=== PATIENT | male | born 1980 | race Caucasian/White ===

== ENCOUNTER 2024-10-19 09:29 | Inpatient (IN) | payer MEDICARE ==
[2024-10-19] MEDS ORDERED: DEXTROSE 50% SYRINGE 50 ML IVP PRN ×2 (09:31)
[2024-10-19] MEDS ORDERED: Potassium Replacement Protocol 1 EACH MISC MISCELLANE PRN (09:31)
[2024-10-19] MEDS ORDERED: Magnesium Replacement Protocol 1 EACH MISC MISCELLANE PRN (09:31)
--- NOTE | 2024-10-19 09:36 | ED ---
General Adult HPI - General Stated complaint: AMS Time Seen by Provider: 10/19/24 09:29 Source: patient, RN notes reviewed, old records reviewed - History of Present Illness Initial comments: This is a 44-year-old male who has a past medical history significant for diabetes and a BKA on the right. Patient stated to EMS that he was normal at 11:00 last night but did complain about just in general not feeling well this morning she woke up and found him naked on the floor and unresponsive. Patient's blood sugar was over 500. And this is all the history have at the time. Review of Systems ROS Statement: Those systems with pertinent positive or pertinent negative responses have been documented in the HPI. ROS Other: All systems not noted in ROS Statement are negative. General Exam - General Exam Comments Initial Comments: GENERAL: Patient is well-developed and well-nourished. Patient is unresponsive ENT: Neck is soft and supple. No significant lymphadenopathy is noted. Oropharynx is clear. Moist mucous membranes. Neck has full range of motion without eliciting any pain. EYES: The sclera were anicteric and conjunctiva were pink and moist. Extraocular movements were intact and pupils were equal round and reactive to light. Eyelids were unremarkable. PULMONARY: Unlabored respirations. Good breath sounds bilaterally. No audible rales rhonchi or wheezing was noted. CARDIOVASCULAR: There is a regular rate and rhythm without any murmurs gallops or rubs. ABDOMEN: Soft and nontender with normal bowel sounds. SKIN: Skin is clear with no lesions or rashes and otherwise unremarkable. NEUROLOGIC: Patient unresponsive but does respond to verbal stimuli by looking at you but does not answer any questions. MUSCULOSKELETAL: Patient has a BKA on the right LYMPHATICS: No significant lymphadenopathy is noted PSYCHIATRIC: Unable to ascertain at this time Course Vital Signs 10/19/24 10/19/24 10/19/24 09:36 09:53 10:19 Temperature 100.0 F H 100.2 F H Pulse Rate 115 H 116 H 117 H Respiratory 24 24 24 Rate Blood Pressure 110/79 129/92 105/83 O2 Sat by Pulse 97 97 96 Oximetry Medical Decision Making - Medical Decision Making EKG is interpreted by myself. EKG shows sinus tachycardia 118 bpm MO was under 35 QRS is 88 QT interval 344 QTc is 414. Patient's EKG shows no ST segment elevation. Was pt. sent in by a medical professional or institution ([facility], [employer], urgent care, hospital, or snf...) When possible be specific @ -No Did you speak to anyone other than the patient for history (EMS, parent, family, police, friend...)? What history was obtained from this source @ -No Did you review nursing and triage notes (agree or disagree)? Why? @ -I reviewed and agree with nursing and triage notes Were old charts reviewed (outside hosp., previous admission, EMS record, old EKG, old radiological studies, urgent care reports/EKG's, snf records)? Report findings @ -No old charts were reviewed Differential Diagnosis? @ -Differential Altered Mental Status: Hypoglycemia, DKA, hypercapnia, ETOH, overdose, CO poisoning, trauma, myxedema coma, HTN encephalopathy, infection, encephalitis, psychosis, intercranial hemorrhage, hepatic encephalopathy, meningitis, CVA, this is not meant to be an all-inclusive list EKG interpreted by me (3pts min.). @ -As above X-rays interpreted by me (1pt min.). @ -Chest x-ray shows no acute CT interpreted by me (1pt min.). @ -CT of the brain shows no acute abnormality U/S interpreted by me (1pt. min.). @ -None done What testing was considered but not performed or refused? (CT, X-rays, U/S, labs)? Why? @ -None What meds were considered but not given or refused? Why? @ -None Did you discuss the management of the patient with other professionals (professionals i.e. [facility]rellana, [employer], lab, RT, psych nurse, sr. social media & mobile manager, utilities equipment repairer, teacher, facility security officer, caser up)? Give summary @ -I spoke with sound physicians agreed to admit the patient. I spoke with Dr. Arevalo he agreed to manage the patient in the ICU. Was smoking cessation discussed for >3mins.? @ -No Was critical care preformed (if so, how long)? @ -35 minutes Were there social determinants of health that impacted care today? How? (Homelessness, low income, unemployed, alcoholism, drug addiction, trans portation, low edu. Level, literacy, decrease access to med. care, halfway, rehab)? @ -No Was there de-escalation of care discussed even if they declined (Discuss DNR or withdrawal of care, Hospice)? DNR status @ -No What co-morbidities impacted this encounter? (DM, HTN, Smoking, COPD, CAD, Cancer, CVA, ARF, Chemo, Hep., AIDS, mental health diagnosis, sleep apnea, morbid obesity)? @ -None Was patient admitted / discharged? Hospital course, mention meds given and route, prescriptions, significant lab abnormalities, going to OR and other pertinent info. @ -Patient presents in DKA and he is given 2 L of fluid started on insulin drip after insulin bolus. Patient was also given 2 g Rocephin secondary to the fever. I spoke with Dr. Mendosa he agreed to admit the patient. Undiagnosed new problem with uncertain prognosis? @ -No Drug Therapy requiring intensive monitoring for toxicity (Heparin, Nitro, Insulin, Cardizem)? @ -No Were any procedures done? @ -No Diagnosis/symptom? @ -DKA Acute, or Chronic, or Acute on Chronic? @ -Acute Uncomplicated (without systemic symptoms) or Complicated (systemic symptoms)? @ -Default Side effects of treatment? @ -No Exacerbation, Progression, or Severe Exacerbation? @ -No Poses a threat to life or bodily function? How? (Chest pain, [place], [place], pneumonia, PE, COPD, DKA, ARF, appy, cholecystitis, CVA, Diverticulitis, Homicidal, Suicidal, threat to staff... and all critical care pts) @ -Yes this can lead to severe dehydration and - Lab Data Result diagrams: 10/19/24 09:51 10/19/24 09:51 Lab Results 10/19/24 10/19/24 10/19/24 Range/Units 09:34 09:39 09:51 WBC 17.1 H (3.8-10.6) k/uL RBC 5.27 (4.30-5.90) m/uL Hgb 15.5 (13.0-17.5) gm/dL Hct 51.3 (39.0-53.0) % MCV 97.4 (80.0-100.0) fL MCH 29.4 (25.0-35.0) pg MCHC 30.1 L (31.0-37.0) g/dL RDW 12.8 (11.5-15.5) % Plt Count 318 (150-450) k/uL MPV 8.4 Neutrophils % 89 % Lymphocytes % 5 % Monocytes % 5 % Eosinophils % 0 % Basophils % 0 % Neutrophils # 15.2 H (1.3-7.7) k/uL Lymphocytes # 0.9 L (1.0-4.8) k/uL Monocytes # 0.9 (0-1.0) k/uL Eosinophils # 0.0 (0-0.7) k/uL Basophils # 0.1 (0-0.2) k/uL Hypochromasia Marked Sample Site r rad ABG pH 7.22 L (7.35-7.45) ABG pCO2 16 L* (35-45) mmHg ABG pO2 111 H (83-108) mmHg ABG HCO3 7 L* (21-25) mmol/L ABG Total CO2 7 L (19-24) mmol/L ABG O2 Saturation 98.1 H (94-97) % ABG Base Excess -18.6 mmol/L Jorge Test Yes Hemoglobin 15.0 (13.0-17.5) gm/dL FiO2 21 % Sodium (137-145) mmol/L Potassium (3.5-5.1) mmol/L Chloride (98-107) mmol/L Carbon Dioxide (22-30) mmol/L Anion Gap mmol/L BUN (9-20) mg/dL Creatinine (0.66-1.25) mg/dL Est GFR (CKD-EPI)AfAm (>60 ml/min/1.73 sqM) Est GFR (CKD-EPI)NonAf (>60 ml/min/1.73 sqM) Glucose (74-99) mg/dL POC Glucose (mg/dL) >600 H* (70-110) mg/dL POC Glu Doughnut Machine Operator ID Fierro Jo-Ann Creatine Kinase ([id number]) U/L Acetone, Qual (Negative) Influenza Type A (PCR) (Not Detectd) Influenza Type B (PCR) (Not Detectd) RSV (PCR) (Not Detectd) SARS-CoV-2 (PCR) (Not Detectd) 10/19/24 10/19/24 Range/Units 09:51 09:51 WBC (3.8-10.6) k/uL RBC (4.30-5.90) m/uL Hgb (13.0-17.5) gm/dL Hct (39.0-53.0) % MCV (80.0-100.0) fL MCH (25.0-35.0) pg MCHC (31.0-37.0) g/dL RDW (11.5-15.5) % Plt Count (150-450) k/uL MPV Neutrophils % % Lymphocytes % % Monocytes % % Eosinophils % % Basophils % % Neutrophils # (1.3-7.7) k/uL Lymphocytes # (1.0-4.8) k/uL Monocytes # (0-1.0) k/uL Eosinophils # (0-0.7) k/uL Basophils # (0-0.2) k/uL Hypochromasia Sample Site ABG pH (7.35-7.45) ABG pCO2 (35-45) mmHg ABG pO2 (83-108) mmHg ABG HCO3 (21-25) mmol/L ABG Total CO2 (19-24) mmol/L ABG O2 Saturation (94-97) % ABG Base Excess mmol/L Jorge Test Hemoglobin (13.0-17.5) gm/dL FiO2 % Sodium 141 (137-145) mmol/L Potassium 6.2 H* (3.5-5.1) mmol/L Chloride 98 (98-107) mmol/L Carbon Dioxide <5 L* (22-30) mmol/L Anion Gap mmol/L BUN 44 H (9-20) mg/dL Creatinine 1.50 H (0.66-1.25) mg/dL Est GFR (CKD-EPI)AfAm 64 (>60 ml/min/1.73 sqM) Est GFR (CKD-EPI)NonAf 55 (>60 ml/min/1.73 sqM) Glucose 808 H* (74-99) mg/dL POC Glucose (mg/dL) (70-110) mg/dL POC Glu Doughnut Machine Operator ID Creatine Kinase [id number] ([id number]) U/L Acetone, Qual Positive (Negative) Influenza Type A (PCR) Not Detected (Not Detectd) Influenza Type B (PCR) Not Detected (Not Detectd) RSV (PCR) Not Detected (Not Detectd) SARS-CoV-2 (PCR) Not Detected (Not Detectd) Disposition Clinical Impression: Diabetic ketoacidosis Disposition: ADMITTED IP TO THIS HOSP Referrals: None,Stated [Primary Care Provider] - 1-2 days Time of Disposition: 10:43
[2024-10-19 09:40] LABS: Glucose,Whole Blood >600 mg/dL (70-110)
[2024-10-19 09:44] LABS: ABG Base Excess -18.6 mmol/L; ABG Oxygen Saturation 98.1 % (94-97); ABG PH 7.22 (7.35-7.45); ABG PO2 111 mmHg (83-108); ABG TCO2 7 mmol/L (19-24); Allen Test Performed? Yes
[2024-10-19 09:46] LABS: ABG PCO2 16 mmHg (35-45)
[2024-10-19 09:47] LABS: ABG HCO3 7 mmol/L (21-25)
[2024-10-19] MEDS: SODIUM CHLORIDE 0.9% 2,000 ML IV ONE (09:57)
[2024-10-19] MEDS: ACETAMINOPHEN IV (For NPO) 1,000 MG in EMPTY BAG 1 BAG IVPB STA (09:58)
[2024-10-19 10:06] LABS: Basophils # (A) 0.1 k/uL (0-0.2); Basophils % (A) 0 %; Eosinophils % (A) 0 %; HCT 51.3 % (39.0-53.0); HGB 15.5 gm/dL (13.0-17.5); Hypochromasia Marked; Lymphocytes # (A) 0.9 k/uL (1.0-4.8); Lymphocytes % (A) 5 %; MCH 29.4 pg (25.0-35.0); MCHC 30.1 g/dL (31.0-37.0); MCV 97.4 fL (80.0-100.0); Mean Platelet Volume 8.4; Monocytes # (A) 0.9 k/uL (0-1.0); Monocytes % (A) 5 %; Neutrophils # (A) 15.2 k/uL (1.3-7.7); Neutrophils % (A) 89 %; Platelet Count 318 k/uL (150-450); RBC 5.27 m/uL (4.30-5.90); RDW 12.8 % (11.5-15.5); WBC 17.1 k/uL (3.8-10.6)
[2024-10-19] MEDS: INSULIN REGULAR BOLUS (FROM DRIP BAG) IV ONE (10:10)
[2024-10-19] MEDS: INSULIN REGULAR 100 UNIT in SODIUM CHLORIDE 0.9% 100 ML IV SCH (10:12)
[2024-10-19 10:16] LABS: African American GFR (CKD) 64 (>60 ml/min/1.73 sqM); Blood Urea Nitrogen 44 mg/dL (9-20); Chloride 98 mmol/L (98-107); Creatine Kinase 139 U/L (55-170); Non-African American GFR(CKD) 55 (>60 ml/min/1.73 sqM); Sodium 141 mmol/L (137-145)
[2024-10-19 10:27] LABS: Carbon Dioxide <5 mmol/L (22-30)
[2024-10-19 10:28] LABS: Glucose 808 mg/dL (74-99); Potassium 6.2 mmol/L (3.5-5.1)
--- NOTE | 2024-10-19 10:28 | XR ---
EXAMINATION TYPE: XR chest 1V portable DATE OF EXAM: 10/19/2024 10:10 AM COMPARISON: None CLINICAL INDICATION: Male, 44 years old with history of Short of breath; [facility] TECHNIQUE: XR chest 1V portable Frontal view of the chest. FINDINGS: Lungs/Pleura: There is no evidence of pleural effusion, focal consolidation, or pneumothorax. Pulmonary vascularity: Unremarkable. Heart/mediastinum: Cardiomediastinal silhouette is unremarkable. Musculoskeletal: No acute osseous pathology. IMPRESSION: Low lung volumes with a generalized hazy appearance which could represent atelectasis versus atypical pneumonia. [facility], , 10/19/2024 10:25 AM
--- NOTE | 2024-10-19 10:30 | CT ---
EXAMINATION TYPE: CT brain wo con DATE OF EXAM: 10/19/2024 10:12 AM COMPARISON: None. CLINICAL INDICATION: Male, 44 years old with history of Altered mental status, AMS TECHNIQUE: Brain: Axial CT images of the brain were obtained with coronal and sagittal reformats created and rev iewed. Contrast used: None. Oral contrast used: None. CT DLP: 1198.4 mGycm, Automated exposure control for dose reduction was used. FINDINGS: Brain: Extra-axial spaces: No suspicious abnormal extra-axial fluid collections. There is a dilated CSF atte nuating region in the posterior cranial fossa consistent with mauricio cisterna magna versus arachnoid cy st. Ventricular system: Dilatation in proportion to cerebral atrophy. Cerebral parenchyma: Cerebral atrophy. No acute intraparenchymal hemorrhage or mass effect. The mcmullen -white junction is well differentiated. Scattered hypoattenuating areas are seen within the white mat ter. Cerebellum: Unremarkable. Mass effect: No evidence of midline shift. Intracranial vasculature: unremarkable Soft tissues: Normal. Calvarium/osseous structures: No depressed skull fracture. Paranasal sinuses and mastoid air cells: Mild scattered paranasal sinus disease. Visualized orbits: Orbital contents are intact. IMPRESSION: 1. No acute intracranial process. 2. Nonspecific white matter changes, likely secondary to chronic small vessel ischemic disease. [facility], , 10/19/2024 10:27 AM
[2024-10-19 10:50] LABS: Glucose,Whole Blood >600 mg/dL (70-110)
[2024-10-19] MEDS: SODIUM CHLORIDE 0.9% 1,000 ML IV ONE (10:55)
[2024-10-19] MEDS: cefTRIAXone IN SWFI 1,000 MG/10 ML SYRINGE IVP STA (10:56)
[2024-10-19 11:17] LABS: Amphetamine Screen,Urine Not Detected (NotDetected); Barbiturate Screen,Urine Not Detected (NotDetected); Benzodiazepines Screen,Urine Not Detected (NotDetected); Cocaine Screen,Urine Not Detected (NotDetected); Methadone Screen, Urine Not Detected (NotDetected); Opiate Screen,Urine Not Detected (NotDetected); Oxycodone Screen, Urine Not Detected (NotDetected); Phencyclidine Screen,Urine Not Detected (NotDetected); Tricyclic Antidepressant,Urine Not Detected (NotDetected); Urn Cannabinoid Scrn Not Detected (NotDetected)
[2024-10-19] MEDS: SODIUM CHLORIDE 0.9% 1,000 ML IV SCH (11:34)
[2024-10-19 11:47] LABS: Glucose,Whole Blood 430 mg/dL (70-110)
[2024-10-19 12:44] LABS: VBG PH 7.3 (7.31-7.41)
[2024-10-19 12:47] LABS: Glucose,Whole Blood 414 mg/dL (70-110)
[2024-10-19 12:57] LABS: African American GFR (CKD) 83 (>60 ml/min/1.73 sqM); Anion Gap 21 mmol/L; Blood Urea Nitrogen 40 mg/dL (9-20); Carbon Dioxide 14 mmol/L (22-30); Chloride 112 mmol/L (98-107); Glucose 417 mg/dL (74-99); Non-African American GFR(CKD) 72 (>60 ml/min/1.73 sqM); Potassium 4.1 mmol/L (3.5-5.1); Sodium 147 mmol/L (137-145)
[2024-10-19 13:26] LABS: Glucose,Whole Blood 302 mg/dL (70-110)
[2024-10-19] MEDS: SODIUM BICARB 8.4% 50 ML SYR (1 MEQ/ML) IV STA (13:50)
[2024-10-19 14:00] LABS: Appearance,Urine Clear (Clear); Bilirubin,Urine Negative (Negative); Blood,Urine Small (Negative); Color,Urine Colorless; Glucose,Urine (UA) 4+ (Negative); Leukocyte Esterase,Urine Negative (Negative); Mucus,Urine Occasional /hpf; Nitrite,Urine Negative (Negative); Protein,Urine Trace (Negative); RBC,Urine 2 /hpf (0-5); Squamous Epithelial Cell,Urine <1 /hpf (0-4); Urobilinogen,Urine <2.0 mg/dL (<2.0); WBC,Urine 1 /hpf (0-5)
--- NOTE | 2024-10-19 14:01 | P.HPIM ---
History of Present Illness H&P Date: 10/19/24 44 year old M with PMH type 1 DM, R BKA presents to the ED. History is supplemented by the girlfriend as patient is too lethargic to participate. Significant other reports patient was not feeling well last night and that he was complaining of a headache. She works from 3-11PM. When she came home she found the patient to be down in the bathroom floor and extremely weak. She was eventually able to help him to the couch. This morning, he was unresponsive with vomit around him which prompted her to call EMS. Patient has a history of type 1 DM and takes insulin sporadically. He is non complaint with medications. No smoking, alcohol or illicit drugs. In the ED he underwent extensive evaluation. BP 110/79, HR 115, Tmax 101F, RR 24, 97% on RA. CBC, Coag panel, CMP significant for WBC 17.1, K 6.2, bicarb < 5, BUN 44, Cr 1.5, glu 808. CPK 139. ABG pH 7.22, pCO2 16. UDS neg. Acetone +. COVID, RSV, Flu neg. EKG sinus tachycardia moderate ST depression. CXR low lung volumes, atelectasis versus atypical PNA. CT brain no acute process. Patient is admitted to ICU for further workup and management. General: toxic, mild distress, appears at stated age Derm: warm, dry Head: atraumatic, normocephalic, symmetric Eyes: EOMI, no lid lag, anicteric sclera Mouth: no lip lesion, mucus membranes moist Cardiovascular: S1S2 reg, no murmur, L chest wall TTP Lungs: CTA bilateral, no rhonchi, no rales , no accessory muscle use Abdominal: soft, non tnder to palpation, no guarding, no appreciable organomega ly, + Pena Ext: no gross muscle atrophy, no edema, no contractures, RBKA Neuro: no focal neuro deficits Psych: lethargic Based on my assessment of this patient, this patient meets a high complexity level of care. Acute metabolic encephalopathy likely due to below. Keep NPO until mentation improved. Diabetic ketoacidosis: Start 0.45 NS + 20 meq KCl at 150 cc/hr. Insulin drip ordered. Amp of bicarb ordered. Accuchecks Q1H. BMP Q4H. Telemetry monitoring. Check A1c. Admit to ICU. Sepsis with unknown origin: CXR shows what is most likely ateletasis. Leukocytosis could be reactive. Obtain BCx + UA. Start Rocephin 1g IV QD empirically. Acute kidney injury: IV hydration as above. Hyperkalemia: Amp of bicarb ordered. 1g Ca gluconate ordered. CODE STATUS: FULL CODE. DVT Prophylaxis: Lovenox SQ GI Prophylaxis: Protonix IV Designated medical POA if patient is not able to make medical decisions for themselves: I have reviewed the following business operations consultant notes: ED note. I have reviewed the results of the following tests: As above. I have ordered the following tests: As above. I have discussed the care of this patient with the following independent historian: I have independently interpreted the following test below: EKG. I have discussed the management of this patient with the following physician: Past Medical History Past Medical History: Diabetes Mellitus, Eye Disorder History of Any Multi-Drug Resistant Organisms: Unobtainable Past Surgical History: Joint Replacement Additional Past Surgical History / Comment(s): bilateral hipe, left leg, right leg BKA Past Psychological History: No Psychological Hx Reported Smoking Status: Never smoker Past Drug Use History: None Reported, Marijuana Medications and Allergies Home Medications Medication Instructions Recorded Confirmed Type Insulin Aspart [NovoLOG Flexpen] See Protocol SQ ACHS PRN 10/19/24 10/19/24 History Allergies Allergy/AdvReac Type Severity Reaction Status Date / Time No Known Allergies Allergy Verified 10/19/24 12:04 Physical Exam Vitals: Vital Signs Temp Pulse Resp BP Pulse Ox 10/19/24 12:55 100.3 F H 114 H 20 102/54 94 L 10/19/24 11:41 101.0 F H 120 H 24 120/66 96 10/19/24 10:57 100.5 F H 116 H 24 100/64 97 10/19/24 10:19 100.2 F H 117 H 24 105/83 96 10/19/24 09:53 116 H 24 129/92 97 10/19/24 09:36 100.0 F H 115 H 24 110/79 97 Intake and Output 10/18/24 10/19/24 10/19/24 22:59 06:59 14:59 Output Total 3650 Balance -3650 Output: Urine 3650 Uretheral (Pena) 3650 Other: Weight 68.039 kg Results CBC & Chem 7: 10/19/24 09:51 10/19/24 12:28 Labs: Abnormal Lab Results - Last 24 Hours (Table) 10/19/24 10/19/24 10/19/24 Range/Units 09:34 09:39 09:51 WBC 17.1 H (3.8-10.6) k/uL MCHC 30.1 L (31.0-37.0) g/dL Neutrophils # 15.2 H (1.3-7.7) k/uL Lymphocytes # 0.9 L (1.0-4.8) k/uL ABG pH 7.22 L (7.35-7.45) ABG pCO2 16 L* (35-45) mmHg ABG pO2 111 H (83-108) mmHg ABG HCO3 7 L* (21-25) mmol/L ABG Total CO2 7 L (19-24) mmol/L ABG O2 Saturation 98.1 H (94-97) % VBG pH (7.31-7.41) VBG pCO2 (37-51) mmHg VBG HCO3 (24-28) mmol/L Sodium (137-145) mmol/L Potassium (3.5-5.1) mmol/L Chloride (98-107) mmol/L Carbon Dioxide (22-30) mmol/L BUN (9-20) mg/dL Creatinine (0.66-1.25) mg/dL Glucose (74-99) mg/dL POC Glucose (mg/dL) >600 H* (70-110) mg/dL 10/19/24 10/19/24 10/19/24 Range/Units 09:51 10:49 11:46 WBC (3.8-10.6) k/uL MCHC (31.0-37.0) g/dL Neutrophils # (1.3-7.7) k/uL Lymphocytes # (1.0-4.8) k/uL ABG pH (7.35-7.45) ABG pCO2 (35-45) mmHg ABG pO2 (83-108) mmHg ABG HCO3 (21-25) mmol/L ABG Total CO2 (19-24) mmol/L ABG O2 Saturation (94-97) % VBG pH (7.31-7.41) VBG pCO2 (37-51) mmHg VBG HCO3 (24-28) mmol/L Sodium (137-145) mmol/L Potassium 6.2 H* (3.5-5.1) mmol/L Chloride (98-107) mmol/L Carbon Dioxide <5 L* (22-30) mmol/L BUN 44 H (9-20) mg/dL Creatinine 1.50 H (0.66-1.25) mg/dL Glucose 808 H* (74-99) mg/dL POC Glucose (mg/dL) >600 H* 430 H (70-110) mg/dL 10/19/24 10/19/24 10/19/24 Range/Units 12: 12: 12:45 WBC (3.8-10.6) k/uL MCHC (31.0-37.0) g/dL Neutrophils # (1.3-7.7) k/uL Lymphocytes # (1.0-4.8) k/uL ABG pH (7.35-7.45) ABG pCO2 (35-45) mmHg ABG pO2 (83-108) mmHg ABG HCO3 (21-25) mmol/L ABG Total CO2 (19-24) mmol/L ABG O2 Saturation (94-97) % VBG pH 7.30 L (7.31-7.41) VBG pCO2 30 L (37-51) mmHg VBG HCO3 15 L (24-28) mmol/L Sodium 147 H (137-145) mmol/L Potassium (3.5-5.1) mmol/L Chloride 112 H (98-107) mmol/L Carbon Dioxide 14 L (22-30) mmol/L BUN 40 H (9-20) mg/dL Creatinine (0.66-1.25) mg/dL Glucose 417 H (74-99) mg/dL POC Glucose (mg/dL) 414 H (70-110) mg/dL 10/19/24 Range/Units 13:25 WBC (3.8-10.6) k/uL MCHC (31.0-37.0) g/dL Neutrophils # (1.3-7.7) k/uL Lymphocytes # (1.0-4.8) k/uL ABG pH (7.35-7.45) ABG pCO2 (35-45) mmHg ABG pO2 (83-108) mmHg ABG HCO3 (21-25) mmol/L ABG Total CO2 (19-24) mmol/L ABG O2 Saturation (94-97) % VBG pH (7.31-7.41) VBG pCO2 (37-51) mmHg VBG HCO3 (24-28) mmol/L Sodium (137-145) mmol/L Potassium (3.5-5.1) mmol/L Chloride (98-107) mmol/L Carbon Dioxide (22-30) mmol/L BUN (9-20) mg/dL Creatinine (0.66-1.25) mg/dL Glucose (74-99) mg/dL POC Glucose (mg/dL) 302 H (70-110) mg/dL
[2024-10-19 14:05] LABS: Glucose,Whole Blood 266 mg/dL (70-110)
[2024-10-19] MEDS: CALCIUM GLUCONATE IN NACL 1 GM in SALINE 1 100ML.BAG IVPB ONE (14:16)
[2024-10-19] MEDS ORDERED: 0.45% NACL WITH KCL 20 MEQ/L 1,000 ML IV SCH (14:30)
[2024-10-19] MEDS: D5-0.45% NACL WITH KCL 20MEQ/L 1,000 ML IV SCH ×2 (14:43→22:31)
[2024-10-19 15:01] LABS: Ketones,Urine 4+ (Negative)
[2024-10-19 15:06] LABS: Glucose,Whole Blood 244 mg/dL (70-110)
[2024-10-19 15:45] LABS: Glucose,Whole Blood 226 mg/dL (70-110)
[2024-10-19 16:17] LABS: African American GFR (CKD) >90 (>60 ml/min/1.73 sqM); Anion Gap 18 mmol/L; Blood Urea Nitrogen 35 mg/dL (9-20); Carbon Dioxide 19 mmol/L (22-30); Chloride 114 mmol/L (98-107); Glucose 259 mg/dL (74-99); Non-African American GFR(CKD) >90 (>60 ml/min/1.73 sqM); Potassium 3.5 mmol/L (3.5-5.1); Sodium 151 mmol/L (137-145)
[2024-10-19 16:59] LABS: Glucose,Whole Blood 216 mg/dL (70-110)
[2024-10-19 17:57] LABS: Glucose,Whole Blood 286 mg/dL (70-110)
[2024-10-19 18:58] LABS: Glucose,Whole Blood 215 mg/dL (70-110)
[2024-10-19 19:28] LABS: African American GFR (CKD) >90 (>60 ml/min/1.73 sqM); Anion Gap 8 mmol/L; Blood Urea Nitrogen 29 mg/dL (9-20); Calcium 9.7 mg/dL (8.4-10.2); Carbon Dioxide 24 mmol/L (22-30); Chloride 118 mmol/L (98-107); Glucose 238 mg/dL (74-99); Non-African American GFR(CKD) >90 (>60 ml/min/1.73 sqM); Potassium 3.5 mmol/L (3.5-5.1); Sodium 150 mmol/L (137-145)
[2024-10-19 19:49] LABS: Glucose,Whole Blood 228 mg/dL (70-110)
[2024-10-19] MEDS: INSULIN DETEMIR (LEVEMIR) 100 UNIT/ML SYR SQ SCH (20:23)
[2024-10-19 22:17] LABS: Glucose,Whole Blood 195 mg/dL (70-110)
[2024-10-19] MEDS: INSULIN ASPART (NovoLOG) 100 UNIT/ML VIAL SQ SCH (22:28)
[2024-10-20 00:15] LABS: African American GFR (CKD) >90 (>60 ml/min/1.73 sqM); Anion Gap 9 mmol/L; Blood Urea Nitrogen 23 mg/dL (9-20); Calcium 9.5 mg/dL (8.4-10.2); Carbon Dioxide 23 mmol/L (22-30); Chloride 118 mmol/L (98-107); Glucose 221 mg/dL (74-99); Non-African American GFR(CKD) >90 (>60 ml/min/1.73 sqM); Potassium 3.7 mmol/L (3.5-5.1); Sodium 150 mmol/L (137-145)
[2024-10-20 03:01] LABS: Glucose,Whole Blood 317 mg/dL (70-110)
[2024-10-20 05:30] LABS: Glucose,Whole Blood 224 mg/dL (70-110)
[2024-10-20 05:58] LABS: HCT 43.5 % (39.0-53.0); HGB 13.9 gm/dL (13.0-17.5); MCH 29.2 pg (25.0-35.0); MCHC 32.1 g/dL (31.0-37.0); Mean Platelet Volume 7.4; Platelet Count 298 k/uL (150-450); RBC 4.77 m/uL (4.30-5.90); RDW 13.1 % (11.5-15.5); WBC 17.3 k/uL (3.8-10.6)
[2024-10-20 06:06] LABS: African American GFR (CKD) >90 (>60 ml/min/1.73 sqM); Anion Gap 7 mmol/L; Blood Urea Nitrogen 19 mg/dL (9-20); Calcium 9.6 mg/dL (8.4-10.2); Carbon Dioxide 25 mmol/L (22-30); Chloride 118 mmol/L (98-107); Glucose 239 mg/dL (74-99); Non-African American GFR(CKD) >90 (>60 ml/min/1.73 sqM); Potassium 3.8 mmol/L (3.5-5.1); Sodium 150 mmol/L (137-145)
[2024-10-20 07:00] LABS: Glucose,Whole Blood 211 mg/dL (70-110)
[2024-10-20] MEDS: POTASSIUM CHLORIDE 10 MEQ in WATER FOR INJECTION 1 100ML.BAG IVPB SCH (07:06)
[2024-10-20] MEDS: DEXTROSE 5% IN WATER 1,000 ML IV SCH (08:23)
[2024-10-20] MEDS: ENOXAPARIN 40 MG/0.4 ML SYRINGE SQ SCH (08:23)
[2024-10-20] MEDS: PANTOPRAZOLE 40 MG/10 ML VIAL IVP SCH (08:23)
[2024-10-20 09:14] LABS: African American GFR (CKD) >90 (>60 ml/min/1.73 sqM); Anion Gap 6 mmol/L; Blood Urea Nitrogen 18 mg/dL (9-20); Calcium 9.8 mg/dL (8.4-10.2); Carbon Dioxide 27 mmol/L (22-30); Chloride 119 mmol/L (98-107); Glucose 163 mg/dL (74-99); Non-African American GFR(CKD) >90 (>60 ml/min/1.73 sqM); Potassium 4.1 mmol/L (3.5-5.1); Sodium 152 mmol/L (137-145)
[2024-10-20] MEDS: HALOPERIDOL LACTATE 5 MG/ML 1 ML VIAL IVP PRN (10:46)
[2024-10-20 11:10] LABS: Glucose,Whole Blood 109 mg/dL (70-110)
--- NOTE | 2024-10-20 11:24 | P.PN ---
Subjective Progress Note Date: 10/20/24 This is a 44-year-old male patient with DKA. The patient came into the emergency department not feeling well, altered and the patient was found naked on the floor. Blood sugar was above 500. Initial blood work showed a glucose of above 800. Sodium levels at 141, potassium is at 6.2, serum bicarb was less than 5, the patient has an anion gap metabolic acidosis with a BUN of 44 and a creatinine of 1.5. Urine drug screen is negative. Serum acetone is positive. Viral screen is negative. The WBC count is 17.1. Chest x-ray shows smaller lung volumes and generalized hazy appearance could be related to atelectasis. CAT scan of the brain was done and showed no acute abnormalities. Nonspecific w vasu matter changes and small chronic ischemic vessel disease. The patient was sedated with IV fluids. The patient is currently on insulin drip and normal saline at rate of 200 cc an hour. Already received a total of 2 L bolus. Also given his dose of sodium bicarb and started on insulin drip. Also started on empiric antibiotic coverage with Rocephin.- On 10/20/2024, the patient is somewhat delirious. He keeps on saying that we are scaring him. No focal neurological deficits. He presented to us with DKA. He was treated accordingly. He was fluid resuscitated. He was started on IV insulin and subsequently switched to Levemir insulin 23 units daily and sliding scale coverage as the patient had complete closure of his anion gap metabolic acidosis. He is also on D5 water as the patient has developed some hyponatremia. Sodium levels are elevated at 152. Potassium is at 4.1 and a bicarb is at 27. BUN is 18 with a creatinine of 0.59. The white cell count was at 17.3. Cultures are negative. No nausea. No emesis. No abdominal pain. No headaches. No focal neurological deficits. Objective - Vital Signs Vital signs: Vital Signs Temp 98.6 F 10/20/24 04:00 Pulse 96 10/20/24 07:00 Resp 20 10/20/24 07:00 BP 137/97 10/20/24 07:00 Pulse Ox 96 10/20/24 07:00 FiO2 Intake & Output 10/19/24 10/20/24 10/20/24 18:59 06:59 18:59 Intake Total 0883.224 5491.109 175 Output Total 4280 1155 90 Balance -2876.284 221.109 85 Weight 77 kg 79.2 kg Intake: IV 1350 1350 175 Calcium Gluconate in NaCl 100 1 gm In Saline 1 100ml. bag @ 100 mls/hr IVPB ONCE ONE Rx#:[id number] D5-0.45% NaCl with KCl 1050 750 20Meq/l 1,000 ml @ 250 mls/hr IV .Q4H [facility]IN Rx#: [id number] D5-0.45% NaCl with KCl 600 75 20Meq/l 1,000 ml @ 75 mls /hr IV .[id number] TIN Rx#: [id number] Potassium Chloride 10 meq 100 In Water For Injection 1 100ml.bag @ 100 mls/hr IVPB Q1H TIN Rx#: [id number] Sodium Chloride 0.9% 1, 200 000 ml @ 200 mls/hr IV . Q5H TIN Rx#:[id number] Intake, IV Titration 53.716 26.109 Amount Insulin Regular 100 unit 53.716 26.109 In Sodium Chloride 0.9% 100 ml @ 0.1 UNITS/KG/HR 6.872 mls/hr IV .[id number] [facility] Rx#:[id number] Output: Urine 4280 1155 90 Uretheral (Pena) 3650 Other: Voiding Method Indwelling Catheter Indwelling Catheter - Exam The patient looks confused, not in acute distress. Patient is currently on room air oxygen. Head exam is unremarkable. No scleral icterus or corneal arcus noted. Neck is without jugular venous distension, thyromegaly, or carotid bruits. Carotid upstrokes are brisk bilaterally. Lungs are clear to auscultation and percussion. Cardiac exam reveals the PMI to be normally sized and situated. Rhythm is regular. First and second heart sounds normal. No murmurs, rubs or gallops. Abdominal exam reveals normal bowel sounds, no masses, no organomegaly and no aortic enlargement. Extremities are nonedematous and patient has a right lower extremity BKA Examination of the skin revealed no evidence of significant rashes, suspicious appearing nevi or other concerning lesions. Neurologically, encephalopathic and confused - Labs CBC & Chem 7: 10/20/24 05:10 10/20/24 08:40 Labs: Abnormal Lab Results - Last 24 Hours (Table) 10/19/24 10/19/24 10/19/24 Range/Units 09:34 09:39 09:51 WBC 17.1 H (3.8-10.6) k/uL MCHC 30.1 L (31.0-37.0) g/dL Neutrophils # 15.2 H (1.3-7.7) k/uL Lymphocytes # 0.9 L (1.0-4.8) k/uL ABG pH 7.22 L (7.35-7.45) ABG pCO2 16 L* (35-45) mmHg ABG pO2 111 H (83-108) mmHg ABG HCO3 7 L* (21-25) mmol/L ABG Total CO2 7 L (19-24) mmol/L ABG O2 Saturation 98.1 H (94-97) % VBG pH (7.31-7.41) VBG pCO2 (37-51) mmHg VBG HCO3 (24-28) mmol/L Sodium (137-145) mmol/L Potassium (3.5-5.1) mmol/L Chloride (98-107) mmol/L Carbon Dioxide (22-30) mmol/L BUN (9-20) mg/dL Creatinine (0.66-1.25) mg/dL Glucose (74-99) mg/dL POC Glucose (mg/dL) >600 H* (70-110) mg/dL Phosphorus (2.5-4.5) mg/dL Urine Protein (Negative) Urine Glucose (UA) (Negative) Urine Ketones (Negative) Urine Blood (Negative) Urine Mucus (None) /hpf 10/19/24 10/19/24 10/19/24 Range/Units 09:51 10:49 11:46 WBC (3.8-10.6) k/uL MCHC (31.0-37.0) g/dL Neutrophils # (1.3-7.7) k/uL Lymphocytes # (1.0-4.8) k/uL ABG pH (7.35-7.45) ABG pCO2 (35-45) mmHg ABG pO2 (83-108) mmHg ABG HCO3 (21-25) mmol/L ABG Total CO2 (19-24) mmol/L ABG O2 Saturation (94-97) % VBG pH (7.31-7.41) VBG pCO2 (37-51) mmHg VBG HCO3 (24-28) mmol/L Sodium (137-145) mmol/L Potassium 6.2 H* (3.5-5.1) mmol/L Chloride (98-107) mmol/L Carbon Dioxide <5 L* (22-30) mmol/L BUN 44 H (9-20) mg/dL Creatinine 1.50 H (0.66-1.25) mg/dL Glucose 808 H* (74-99) mg/dL POC Glucose (mg/dL) >600 H* 430 H (70-110) mg/dL Phosphorus (2.5-4.5) mg/dL Urine Protein (Negative) Urine Glucose (UA) (Negative) Urine Ketones (Negative) Urine Blood (Negative) Urine Mucus (None) /hpf 10/19/24 10/19/24 10/19/24 Range/Units 12:28 12:28 12:45 WBC (3.8-10.6) k/uL MCHC (31.0-37.0) g/dL Neutrophils # (1.3-7.7) k/uL Lymphocytes # (1.0-4.8) k/uL ABG pH (7.35-7.45) ABG pCO2 (35-45) mmHg ABG pO2 (83-108) mmHg ABG HCO3 (21-25) mmol/L ABG Total CO2 (19-24) mmol/L ABG O2 Saturation (94-97) % VBG pH 7.30 L (7.31-7.41) VBG pCO2 30 L (37-51) mmHg VBG HCO3 15 L (24-28) mmol/L Sodium 147 H (137-145) mmol/L Potassium (3.5-5.1) mmol/L Chloride 112 H (98-107) mmol/L Carbon Dioxide 14 L (22-30) mmol/L BUN 40 H (9-20) mg/dL Creatinine (0.66-1.25) mg/dL Glucose 417 H (74-99) mg/dL POC Glucose (mg/dL) 414 H (70-110) mg/dL Phosphorus (2.5-4.5) mg/dL Urine Protein (Negative) Urine Glucose (UA) (Negative) Urine Ketones (Negative) Urine Blood (Negative) Urine Mucus (None) /hpf 10/19/24 10/19/24 10/19/24 Range/Units 13:25 13:45 14:04 WBC (3.8-10.6) k/uL MCHC (31.0-37.0) g/dL Neutrophils # (1.3-7.7) k/uL Lymphocytes # (1.0-4.8) k/uL ABG pH (7.35-7.45) ABG pCO2 (35-45) mmHg ABG pO2 (83-108) mmHg ABG HCO3 (21-25) mmol/L ABG Total CO2 (19-24) mmol/L ABG O2 Saturation (94-97) % VBG pH (7.31-7.41) VBG pCO2 (37-51) mmHg VBG HCO3 (24-28) mmol/L Sodium (137-145) mmol/L Potassium (3.5-5.1) mmol/L Chloride (98-107) mmol/L Carbon Dioxide (22-30) mmol/L BUN (9-20) mg/dL Creatinine (0.66-1.25) mg/dL Glucose (74-99) mg/dL POC Glucose (mg/dL) 302 H 266 H (70-110) mg/dL Phosphorus (2.5-4.5) mg/dL Urine Protein Trace H (Negative) Urine Glucose (UA) 4+ H (Negative) Urine Ketones 4+ H (Negative) Urine Blood Small H (Negative) Urine Mucus Occasional H (None) /hpf 10/19/24 10/19/24 10/19/24 Range/Units 15:04 15:40 15:40 WBC (3.8-10.6) k/uL MCHC (31.0-37.0) g/dL Neutrophils # (1.3-7.7) k/uL Lymphocytes # (1.0-4.8) k/uL ABG pH (7.35-7.45) ABG pCO2 (35-45) mmHg ABG pO2 (83-108) mmHg ABG HCO3 (21-25) mmol/L ABG Total CO2 (19-24) mmol/L ABG O2 Saturation (94-97) % VBG pH (7.31-7.41) VBG pCO2 (37-51) mmHg VBG HCO3 (24-28) mmol/L Sodium 151 H (137-145) mmol/L Potassium (3.5-5.1) mmol/L Chloride 114 H (98-107) mmol/L Carbon Dioxide 19 L (22-30) mmol/L BUN 35 H (9-20) mg/dL Creatinine (0.66-1.25) mg/dL Glucose 259 H (74-99) mg/dL POC Glucose (mg/dL) 244 H (70-110) mg/dL Phosphorus 2.1 L (2.5-4.5) mg/dL Urine Protein (Negative) Urine Glucose (UA) (Negative) Urine Ketones (Negative) Urine Blood (Negative) Urine Mucus (None) /hpf 10/19/24 10/19/24 10/19/24 Range/Units 15:42 16:57 17:56 WBC (3.8-10.6) k/uL MCHC (31.0-37.0) g/dL Neutrophils # (1.3-7.7) k/uL Lymphocytes # (1.0-4.8) k/uL ABG pH (7.35-7.45) ABG pCO2 (35-45) mmHg ABG pO2 (83-108) mmHg ABG HCO3 (21-25) mmol/L ABG Total CO2 (19-24) mmol/L ABG O2 Saturation (94-97) % VBG pH (7.31-7.41) VBG pCO2 (37-51) mmHg VBG HCO3 (24-28) mmol/L Sodium (137-145) mmol/L Potassium (3.5-5.1) mmol/L Chloride (98-107) mmol/L Carbon Dioxide (22-30) mmol/L BUN (9-20) mg/dL Creatinine (0.66-1.25) mg/dL Glucose (74-99) mg/dL POC Glucose (mg/dL) 226 H 216 H 286 H (70-110) mg/dL Phosphorus (2.5-4.5) mg/dL Urine Protein (Negative) Urine Glucose (UA) (Negative) Urine Ketones (Negative) Urine Blood (Negative) Urine Mucus (None) /hpf 10/19/24 10/19/24 10/19/24 Range/Units 18:56 18:59 19:49 WBC (3.8-10.6) k/uL MCHC (31.0-37.0) g/dL Neutrophils # (1.3-7.7) k/uL Lymphocytes # (1.0-4.8) k/uL ABG pH (7.35-7.45) ABG pCO2 (35-45) mmHg ABG pO2 (83-108) mmHg ABG HCO3 (21-25) mmol/L ABG Total CO2 (19-24) mmol/L ABG O2 Saturation (94-97) % VBG pH (7.31-7.41) VBG pCO2 (37-51) mmHg VBG HCO3 (24-28) mmol/L Sodium 150 H (137-145) mmol/L Potassium (3.5-5.1) mmol/L Chloride 118 H (98-107) mmol/L Carbon Dioxide (22-30) mmol/L BUN 29 H (9-20) mg/dL Creatinine (0.66-1.25) mg/dL Glucose 238 H (74-99) mg/dL POC Glucose (mg/dL) 215 H 228 H (70-110) mg/dL Phosphorus (2.5-4.5) mg/dL Urine Protein (Negative) Urine Glucose (UA) (Negative) Urine Ketones (Negative) Urine Blood (Negative) Urine Mucus (None) /hpf 10/19/24 10/19/24 10/20/24 Range/Units 22:16 23:37 02:59 WBC (3.8-10.6) k/uL MCHC (31.0-37.0) g/dL Neutrophils # (1.3-7.7) k/uL Lymphocytes # (1.0-4.8) k/uL ABG pH (7.35-7.45) ABG pCO2 (35-45) mmHg ABG pO2 (83-108) mmHg ABG HCO3 (21-25) mmol/L ABG Total CO2 (19-24) mmol/L ABG O2 Saturation (94-97) % VBG pH (7.31-7.41) VBG pCO2 (37-51) mmHg VBG HCO3 (24-28) mmol/L Sodium 150 H (137-145) mmol/L Potassium (3.5-5.1) mmol/L Chloride 118 H (98-107) mmol/L Carbon Dioxide (22-30) mmol/L BUN 23 H (9-20) mg/dL Creatinine (0.66-1.25) mg/dL Glucose 221 H (74-99) mg/dL POC Glucose (mg/dL) 195 H 317 H (70-110) mg/dL Phosphorus (2.5-4.5) mg/dL Urine Protein (Negative) Urine Glucose (UA) (Negative) Urine Ketones (Negative) Urine Blood (Negative) Urine Mucus (None) /hpf 10/20/24 10/20/24 10/20/24 Range/Units 05:08 05:10 05:28 WBC 17.3 H (3.8-10.6) k/uL MCHC (31.0-37.0) g/dL Neutrophils # (1.3-7.7) k/uL Lymphocytes # (1.0-4.8) k/uL ABG pH (7.35-7.45) ABG pCO2 (35-45) mmHg ABG pO2 (83-108) mmHg ABG HCO3 (21-25) mmol/L ABG Total CO2 (19-24) mmol/L ABG O2 Saturation (94-97) % VBG pH (7.31-7.41) VBG pCO2 (37-51) mmHg VBG HCO3 (24-28) mmol/L Sodium 150 H (137-145) mmol/L Potassium (3.5-5.1) mmol/L Chloride 118 H (98-107) mmol/L Carbon Dioxide (22-30) mmol/L BUN (9-20) mg/dL Creatinine 0.62 L (0.66-1.25) mg/dL Glucose 239 H (74-99) mg/dL POC Glucose (mg/dL) 224 H (70-110) mg/dL Phosphorus (2.5-4.5) mg/dL Urine Protein (Negative) Urine Glucose (UA) (Negative) Urine Ketones (Negative) Urine Blood (Negative) Urine Mucus (None) /hpf 10/20/24 Range/Units 06:59 WBC (3.8-10.6) k/uL MCHC (31.0-37.0) g/dL Neutrophils # (1.3-7.7) k/uL Lymphocytes # (1.0-4.8) k/uL ABG pH (7.35-7.45) ABG pCO2 (35-45) mmHg ABG pO2 (83-108) mmHg ABG HCO3 (21-25) mmol/L ABG Total CO2 (19-24) mmol/L ABG O2 Saturation (94-97) % VBG pH (7.31-7.41) VBG pCO2 (37-51) mmHg VBG HCO3 (24-28) mmol/L Sodium (137-145) mmol/L Potassium (3.5-5.1) mmol/L Chloride (98-107) mmol/L Carbon Dioxide (22-30) mmol/L BUN (9-20) mg/dL Creatinine (0.66-1.25) mg/dL Glucose (74-99) mg/dL POC Glucose (mg/dL) 211 H (70-110) mg/dL Phosphorus (2.5-4.5) mg/dL Urine Protein (Negative) Urine Glucose (UA) (Negative) Urine Ketones (Negative) Urine Blood (Negative) Urine Mucus (None) /hpf Assessment and Plan Plan: Acute DKA with severe anion gap metabolic acidosis, recovered Hyperglycemia secondary to above, recovered Leukocytosis, likely reactive hypernatremia currently on D5 water Hyperkalemia secondary to severe metabolic acidosis, recovered Acute kidney injury, recovered Diabetes mellitus type 1 Previous history of BKA involving the right lower extremity Delirium, CAT scan of the brain at time of admission is negative and the patient's neurologic exam is nonfocal. Plan Transfer the patient to the intensive care unit Continue D5 water Monitor sodium level Levemir insulin 23 units daily along with a sliding scale coverage Precedex if needed for delirium. Patient was also given Haldol. Monitor mentation Monitor white cell count IV Protonix Lovenox for DVT prophylaxis Will continue to follow.
--- NOTE | 2024-10-20 12:45 | P.PN ---
Subjective Progress Note Date: 10/20/24 44 year old M with PMH type 1 DM, R CARLITO presents to the ED. History is supplemented by the girlfriend as patient is too lethargic to participate. Significant other reports patient was not feeling well last night and that he was complaining of a headache. She works from 3-11PM. When she came home she found the patient to be down in the bathroom floor and extremely weak. She was eventually able to help him to the couch. This morning, he was unresponsive with vomit around him which prompted her to call EMS. Patient has a history of type 1 DM and takes insulin sporadically. He is non complaint with medications. No smoking, alcohol or illicit drugs. In the ED he underwent extensive evaluation. BP 110/79, HR 115, Tmax 101F, RR 24, 97% on RA. CBC, Coag panel, CMP significant for WBC 17.1, K 6.2, bicarb < 5, BUN 44, Cr 1.5, glu 808. CPK 139. ABG pH 7.22, pCO2 16. UDS neg. Acetone +. COVID, RSV, Flu neg. EKG sinus tachycardia moderate ST depression. CXR low lung volumes, atelectasis versus atypical PNA. CT brain no acute process. Patient is admitted to ICU for further workup and management. Started on insulin drip and eventually transitioned to SQ insulin on 10/19. 10/20 Patient was seen and examined. Disussed with RN, patient is confused + agitated and requires frequent re-direction. CBC WBC 17.3. Most recent BMP Na 152, Cl 119, Cr 0.59, glu 163. UA 4+ glucose, 4+ ketones, small blood, negative nitrite and LE. General: ill appearing, no distress, appears at stated age Derm: warm, dry Head: atraumatic, normocephalic, symmetric Eyes: EOMI, no lid lag, anicteric sclera Mouth: no lip lesion, mucus membranes moist Cardiovascular: S1S2 tachy, no murmur Lungs: CTA bilateral, no rhonchi, no rales , no accessory muscle use Abdominal: soft, non tnder to palpation, no guarding, no appreciable organomegaly, + Pena Ext: no gross muscle atrophy, no edema, no contractures, RBKA Neuro: no focal neuro deficits Psych: Confused Based on my assessment of this patient, this patient meets a high complexity level of care. Acute metabolic encephalopathy likely due to below. Keep NPO until mentation improved. Acute Delirium: Haldon 2 mg IV TID PRN. Plans to start Precedex if needed. Sitter ordered. Frequent re-direction. Avoid sedative medications. Hypernatremia: Started on D5W at 150 cc/hr. Repeat BMP Q4H. Diabetic ketoacidosis: AG closed and bicarb within normal limits. Levemir 23 units QHS. ISS ACHS + 2AM. Accuchecks Q1H. BMP Q4H. Telemetry monitoring. Check A1c. Sepsis with unknown origin: CXR shows what is most likely ateletasis. Leukocytosis could be reactive. UA as above. Follow BCx. Start Rocephin 1g IV QD empirically. Resolved: YAHAIRA, HyperK, DKA CODE STATUS: FULL CODE. DVT Prophylaxis: Lovenox SQ GI Prophylaxis: Protonix IV Designated medical POA if patient is not able to make medical decisions for themselves: I have reviewed the following aws consultant notes: Pulmonary note. I have reviewed the results of the following tests: CBC, BMP, UA. I have ordered the following tests: I have discussed the care of this patient with the following independent historian: YESSY. I have independently interpreted the following test below: I have discussed the management of this patient with the following physician: Objective - Vital Signs Vital signs: Vital Signs Temp 98.8 F 10/20/24 12:00 Pulse 87 10/20/24 12:00 Resp 14 10/20/24 12:00 BP 114/63 10/20/24 12:00 Pulse Ox 91 L 10/20/24 12:00 FiO2 Intake & Output 10/19/24 10/20/24 10/20/24 18:59 06:59 18:59 Intake Total 7838.586 1589.109 675 Output Total 4280 1155 360 Balance -2876.284 221.109 315 Weight 77 kg 79.2 kg Intake: IV 1350 1350 675 Calcium Gluconate in NaCl 100 1 gm In Saline 1 100ml. bag @ 100 mls/hr IVPB ONCE ONE Rx#:[id number] D5-0.45% NaCl with KCl 1050 750 20Meq/l 1,000 ml @ 250 mls/hr IV .Q4H ON LICENSE OF [facility] Rx#: [id number] D5-0.45% NaCl with KCl 600 75 20Meq/l 1,000 ml @ 75 mls /hr IV .[id number] [facility] Rx#: [id number] Dextrose 5% in Water 1, 300 000 ml @ 75 mls/hr IV . [id number] [facility] Rx#:[id number] Potassium Chloride 10 meq 200 In Water For Injection 1 100ml.bag @ 100 mls/hr IVPB Q1H [facility] Rx#: [id number] Sodium Chloride 0.9% 1, 200 000 ml @ 200 mls/hr IV . Q5H [facility] Rx#:[id number] cefTRIAXone 1 gm In 100 Sodium Chloride 0.9% 50 ml @ 100 mls/hr IVPB Q24HR [facility] Rx#:[id number] Intake, IV Titration 53.716 26.109 Amount Insulin Regular 100 unit 53.716 26.109 In Sodium Chloride 0.9% 100 ml @ 0.1 UNITS/KG/HR 6.872 mls/hr IV .[id number] [facility] Rx#:[id number] Output: Urine 4280 1155 360 Uretheral (Pena) 3650 Other: Voiding Method Indwelling Catheter Indwelling Catheter Indwelling Catheter - Labs CBC & Chem 7: 10/20/24 05:10 10/20/24 08:40 Labs: Abnormal Lab Results - Last 24 Hours (Table) 10/19/24 10/19/24 10/19/24 Range/Units 12:28 12:28 12:45 WBC (3.8-10.6) k/uL VBG pH 7.30 L (7.31-7.41) VBG pCO2 30 L (37-51) mmHg VBG HCO3 15 L (24-28) mmol/L Sodium 147 H (137-145) mmol/L Chloride 112 H (98-107) mmol/L Carbon Dioxide 14 L (22-30) mmol/L BUN 40 H (9-20) mg/dL Creatinine (0.66-1.25) mg/dL Glucose 417 H (74-99) mg/dL POC Glucose (mg/dL) 414 H (70-110) mg/dL Phosphorus (2.5-4.5) mg/dL Urine Protein (Negative) Urine Glucose (UA) (Negative) Urine Ketones (Negative) Urine Blood (Negative) Urine Mucus (None) /hpf 10/19/24 10/19/24 10/19/24 Range/Units 13:25 13:45 14:04 WBC (3.8-10.6) k/uL VBG pH (7.31-7.41) VBG pCO2 (37-51) mmHg VBG HCO3 (24-28) mmol/L Sodium (137-145) mmol/L Chloride (98-107) mmol/L Carbon Dioxide (22-30) mmol/L BUN (9-20) mg/dL Creatinine (0.66-1.25) mg/dL Glucose (74-99) mg/dL POC Glucose (mg/dL) 302 H 266 H (70-110) mg/dL Phosphorus (2.5-4.5) mg/dL Urine Protein Trace H (Negative) Urine Glucose (UA) 4+ H (Negative) Urine Ketones 4+ H (Negative) Urine Blood Small H (Negative) Urine Mucus Occasional H (None) /hpf 10/19/24 10/19/24 10/19/24 Range/Units 15:04 15:40 15:40 WBC (3.8-10.6) k/uL VBG pH (7.31-7.41) VBG pCO2 (37-51) mmHg VBG HCO3 (24-28) mmol/L Sodium 151 H (137-145) mmol/L Chloride 114 H (98-107) mmol/L Carbon Dioxide 19 L (22-30) mmol/L BUN 35 H (9-20) mg/dL Creatinine (0.66-1.25) mg/dL Glucose 259 H (74-99) mg/dL POC Glucose (mg/dL) 244 H (70-110) mg/dL Phosphorus 2.1 L (2.5-4.5) mg/dL Urine Protein (Negative) Urine Glucose (UA) (Negative) Urine Ketones (Negative) Urine Blood (Negative) Urine Mucus (None) /hpf 10/19/24 10/19/24 10/19/24 Range/Units 15:42 16:57 17:56 WBC (3.8-10.6) k/uL VBG pH (7.31-7.41) VBG pCO2 (37-51) mmHg VBG HCO3 (24-28) mmol/L Sodium (137-145) mmol/L Chloride (98-107) mmol/L Carbon Dioxide (22-30) mmol/L BUN (9-20) mg/dL Creatinine (0.66-1.25) mg/dL Glucose (74-99) mg/dL POC Glucose (mg/dL) 226 H 216 H 286 H (70-110) mg/dL Phosphorus (2.5-4.5) mg/dL Urine Protein (Negative) Urine Glucose (UA) (Negative) Urine Ketones (Negative) Urine Blood (Negative) Urine Mucus (None) /hpf 10/19/24 10/19/24 10/19/24 Range/Units 18:56 18:59 19:49 WBC (3.8-10.6) k/uL VBG pH (7.31-7.41) VBG pCO2 (37-51) mmHg VBG HCO3 (24-28) mmol/L Sodium 150 H (137-145) mmol/L Chloride 118 H (98-107) mmol/L Carbon Dioxide (22-30) mmol/L BUN 29 H (9-20) mg/dL Creatinine (0.66-1.25) mg/dL Glucose 238 H (74-99) mg/dL POC Glucose (mg/dL) 215 H 228 H (70-110) mg/dL Phosphorus (2.5-4.5) mg/dL Urine Protein (Negative) Urine Glucose (UA) (Negative) Urine Ketones (Negative) Urine Blood (Negative) Urine Mucus (None) /hpf 10/19/24 10/19/24 10/20/24 Range/Units 22:16 23:37 02:59 WBC (3.8-10.6) k/uL VBG pH (7.31-7.41) VBG pCO2 (37-51) mmHg VBG HCO3 (24-28) mmol/L Sodium 150 H (137-145) mmol/L Chloride 118 H (98-107) mmol/L Carbon Dioxide (22-30) mmol/L BUN 23 H (9-20) mg/dL Creatinine (0.66-1.25) mg/dL Glucose 221 H (74-99) mg/dL POC Glucose (mg/dL) 195 H 317 H (70-110) mg/dL Phosphorus (2.5-4.5) mg/dL Urine Protein (Negative) Urine Glucose (UA) (Negative) Urine Ketones (Negative) Urine Blood (Negative) Urine Mucus (None) /hpf 10/20/24 10/20/24 10/20/24 Range/Units 05:08 05:10 05:28 WBC 17.3 H (3.8-10.6) k/uL VBG pH (7.31-7.41) VBG pCO2 (37-51) mmHg VBG HCO3 (24-28) mmol/L Sodium 150 H (137-145) mmol/L Chloride 118 H (98-107) mmol/L Carbon Dioxide (22-30) mmol/L BUN (9-20) mg/dL Creatinine 0.62 L (0.66-1.25) mg/dL Glucose 239 H (74-99) mg/dL POC Glucose (mg/dL) 224 H (70-110) mg/dL Phosphorus (2.5-4.5) mg/dL Urine Protein (Negative) Urine Glucose (UA) (Negative) Urine Ketones (Negative) Urine Blood (Negative) Urine Mucus (None) /hpf 10/20/24 10/20/24 Range/Units 06:59 08:40 WBC (3.8-10.6) k/uL VBG pH (7.31-7.41) VBG pCO2 (37-51) mmHg VBG HCO3 (24-28) mmol/L Sodium 152 H (137-145) mmol/L Chloride 119 H (98-107) mmol/L Carbon Dioxide (22-30) mmol/L BUN (9-20) mg/dL Creatinine 0.59 L (0.66-1.25) mg/dL Glucose 163 H (74-99) mg/dL POC Glucose (mg/dL) 211 H (70-110) mg/dL Phosphorus (2.5-4.5) mg/dL Urine Protein (Negative) Urine Glucose (UA) (Negative) Urine Ketones (Negative) Urine Blood (Negative) Urine Mucus (None) /hpf
[2024-10-20 12:50] LABS: Estimated Average Glucose >470 mg/dL
[2024-10-20] MEDS: DEXMEDETOMIDINE/0.9% NACL(PMX) 400 MCG in EMPTY BAG 1 BAG IV SCH (13:08)
[2024-10-20 15:01] LABS: African American GFR (CKD) >90 (>60 ml/min/1.73 sqM); Anion Gap 5 mmol/L; Blood Urea Nitrogen 14 mg/dL (9-20); Calcium 8.9 mg/dL (8.4-10.2); Carbon Dioxide 26 mmol/L (22-30); Chloride 114 mmol/L (98-107); Glucose 256 mg/dL (74-99); Non-African American GFR(CKD) >90 (>60 ml/min/1.73 sqM); Potassium 3.7 mmol/L (3.5-5.1); Sodium 145 mmol/L (137-145)
[2024-10-20 16:20] LABS: Glucose,Whole Blood 274 mg/dL (70-110)
[2024-10-20 20:31] LABS: Glucose,Whole Blood 285 mg/dL (70-110)
[2024-10-21 02:07] LABS: Glucose,Whole Blood 170 mg/dL (70-110)
[2024-10-21 04:51] LABS: HCT 38.5 % (39.0-53.0); HGB 12.6 gm/dL (13.0-17.5); MCH 29.5 pg (25.0-35.0); MCHC 32.8 g/dL (31.0-37.0); MCV 89.8 fL (80.0-100.0); Mean Platelet Volume 8.4; Platelet Count 215 k/uL (150-450); RBC 4.29 m/uL (4.30-5.90); RDW 13.1 % (11.5-15.5); WBC 10.3 k/uL (3.8-10.6)
[2024-10-21 05:05] LABS: African American GFR (CKD) >90 (>60 ml/min/1.73 sqM); Anion Gap 2 mmol/L; Blood Urea Nitrogen 9 mg/dL (9-20); Calcium 9.1 mg/dL (8.4-10.2); Carbon Dioxide 29 mmol/L (22-30); Chloride 112 mmol/L (98-107); Glucose 165 mg/dL (74-99); Non-African American GFR(CKD) >90 (>60 ml/min/1.73 sqM); Potassium 3.3 mmol/L (3.5-5.1); Sodium 143 mmol/L (137-145)
[2024-10-21] MEDS: POTASSIUM CHLORIDE ER 20 MEQ TAB.ER PO STA (06:02)
[2024-10-21 06:44] LABS: Glucose,Whole Blood 216 mg/dL (70-110)
[2024-10-21] MEDS: INSULIN ASPART (NovoLOG) 100 UNIT/ML VIAL SQ SCH (06:54)
--- NOTE | 2024-10-21 07:01 | P.PN ---
Subjective Progress Note Date: 10/21/24 44 year old M with PMH type 1 DM, R BKA presents to the ED. History is supplemented by the girlfriend as patient is too lethargic to participate. Significant other reports patient was not feeling well last night and that he was complaining of a headache. She works from 3-11PM. When she came home she found the patient to be down in the bathroom floor and extremely weak. She was eventually able to help him to the couch. This morning, he was unresponsive with vomit around him which prompted her to call EMS. Patient has a history of type 1 DM and takes insulin sporadically. He is non complaint with medications. No smoking, alcohol or illicit drugs. In the ED he underwent extensive evaluation. BP 110/79, HR 115, Tmax 101F, RR 24, 97% on RA. CBC, Coag panel, CMP significant for WBC 17.1, K 6.2, bicarb < 5, BUN 44, Cr 1.5, glu 808. CPK 139. ABG pH 7.22, pCO2 16. UDS neg. Acetone +. COVID, RSV, Flu neg. EKG sinus tachycardia moderate ST depression. CXR low lung volumes, atelectasis versus atypical PNA. CT brain no acute process. Patient is admitted to ICU for further workup and management. Started on insulin drip and eventually transitioned to SQ insulin on 10/19. He did have hypernatremia for which he was started on D5W. His sodium has been improving. Despite resolution of DKA, patient noted to be confused and agitated requiring sitter and frequent re-direction. Started on Haldol PRN and Precedex. 10/21 Patient was seen and examined. Mentation improved this morning. Sitter at bedside. Does not remember the events leading up to hospitalization. POC glucose ranging from 103-317 over the past 24H. His A1c is > 18. He is currently on 23 units Levemir QHS. Received 39 units of Novolog over the sliding scale. Currently on Precedex at 0.4 mcg/kg/hr. IVF includes D5W running at 150 cc/hr. CBC and BMP significant for RBC 4.29, Hg 12.6, Hct 38.5, K 3.3, Cl 112, Cr 0.55, glu 165. Mag 2.3. BP 121/80, HR 65, T 97.7F, RR 13, 96% on RA. General: non toxic, no distress, appears at stated age Derm: warm, dry Head: atraumatic, normocephalic, symmetric Eyes: EOMI, no lid lag, anicteric sclera Mouth: no lip lesion, mucus membranes moist Cardiovascular: S1S2 reg, no murmur Lungs: CTA bilateral, no rhonchi, no rales , no accessory muscle use Abdominal: soft, non tender to palpation, no guarding, no appreciable organomegaly, + Pena Ext: no gross muscle atrophy, no edema, no contractures, R BKA Neuro: no focal neuro deficits Psych: Confused Based on my assessment of this patient, this patient meets a high complexity level of care. Acute metabolic encephalopathy likely due to below. Swallow eval ordered. CLD and advance as tolerated. Acute Delirium: Haldol 2 mg IV TID PRN. Attempt to wean Precedex. Sitter for safety. Frequent re-direction. Avoid sedative medications. Uncontrolled DM: A1c > 18. Continue Levemir 23 units QHS. Start Novolog 7 units TID. ISS and Accuchecks ACHS + 2AM. Discontinued D5W. Hypoglycemic precautions. Hypokalemia: KCl 40 meq PO x 1. Sepsis with unknown origin: CXR shows what is most likely ateletasis. Leukocytosis could be reactive. UA neg LE or nitrite. BCx prelim neg. Continue Rocephin 1g IV QD empirically (D2). Resolved: YAHAIRA, HyperK, DKA, HyperNa DKA resolved. Mentation improved. Possible transfer out of ICU if able to wean Precedex. CODE STATUS: FULL CODE. DVT Prophylaxis: Lovenox SQ GI Prophylaxis: Protonix IV Designated medical POA if patient is not able to make medical decisions for themselves: I have reviewed the following sr technical sales consultant notes: Pulmonary note. I have reviewed the results of the following tests: A1c. BCx. POC glucose. CBC. BMP. I have ordered the following tests: BMP and Mag in the AM. I have discussed the care of this patient with the following independent historian: I have independently interpreted the following test below: I have discussed the management of this patient with the following physician: Objective - Vital Signs Vital signs: Vital Signs Temp 97.7 F 10/21/24 04:00 Pulse 65 10/21/24 04:00 Resp 13 10/21/24 04:00 BP 121/80 10/21/24 04:00 Pulse Ox 96 10/21/24 04:00 FiO2 Intake & Output 10/20/24 10/20/24 10/21/24 06:59 18:59 06:59 Intake Total 0091.826 1734.607 1676.164 Output Total 6300 546 8979 Balance 221.109 965.607 366.164 Weight 79.2 kg Intake: IV 1350 1725 1350 D5-0.45% NaCl with KCl 750 20Meq/l 1,000 ml @ 250 mls/hr IV .Q4H TIN Rx#: [id number] D5-0.45% NaCl with KCl 600 75 20Meq/l 1,000 ml @ 75 mls /hr IV .[id number] TIN Rx#: [id number] Dextrose 5% in Water 1, 1350 1350 000 ml @ 150 mls/hr IV . Q6H40M TIN Rx#:[id number] Potassium Chloride 10 meq 200 In Water For Injection 1 100ml.bag @ 100 mls/hr IVPB Q1H TIN Rx#: [id number] cefTRIAXone 1 gm In 100 Sodium Chloride 0.9% 50 ml @ 100 mls/hr IVPB Q24HR TIN Rx#:[id number] Intake, IV Titration 26.109 2.607 76.164 Amount Dexmedetomidine/0.9% NaCl 2.607 76.164 (Pmx) 400 mcg In Empty Bag 1 bag @ 0.2 MCG/KG/HR 3.96 mls/hr IV .Q24H TIN Rx#:[id number] Insulin Regular 100 unit 26.109 In Sodium Chloride 0.9% 100 ml @ 0.1 UNITS/KG/HR 6.872 mls/hr IV .[id number] TIN Rx#:[id number] Oral 250 Output: Urine 7130 215 7493 Other: Voiding Method Indwelling Catheter Indwelling Catheter Indwelling Catheter - Labs CBC & Chem 7: 10/21/24 04:40 10/21/24 04:40 Labs: Abnormal Lab Results - Last 24 Hours (Table) 10/19/24 10/20/24 10/20/24 Range/Units 15:40 05:08 05:10 WBC 17.3 H (3.8-10.6) k/uL Sodium 150 H (137-145) mmol/L Chloride 118 H (98-107) mmol/L Creatinine 0.62 L (0.66-1.25) mg/dL Glucose 239 H (74-99) mg/dL POC Glucose (mg/dL) (70-110) mg/dL Hemoglobin A1c >18.0 H (<=6.0) % 10/20/24 10/20/24 10/20/24 Range/Units 05:28 06:59 08:40 WBC (3.8-10.6) k/uL Sodium 152 H (137-145) mmol/L Chloride 119 H (98-107) mmol/L Creatinine 0.59 L (0.66-1.25) mg/dL Glucose 163 H (74-99) mg/dL POC Glucose (mg/dL) 224 H 211 H (70-110) mg/dL Hemoglobin A1c (<=6.0) % 10/20/24 10/20/24 10/20/24 Range/Units 14:34 16:18 20:30 WBC (3.8-10.6) k/uL Sodium (137-145) mmol/L Chloride 114 H (98-107) mmol/L Creatinine 0.61 L (0.66-1.25) mg/dL Glucose 256 H (74-99) mg/dL POC Glucose (mg/dL) 274 H 285 H (70-110) mg/dL Hemoglobin A1c (<=6.0) % 10/21/24 Range/Units 02:05 WBC (3.8-10.6) k/uL Sodium (137-145) mmol/L Chloride (98-107) mmol/L Creatinine (0.66-1.25) mg/dL Glucose (74-99) mg/dL POC Glucose (mg/dL) 170 H (70-110) mg/dL Hemoglobin A1c (<=6.0) % Microbiology - Last 24 Hours (Table) 10/19/24 09:51 Blood Culture - Preliminary Blood
[2024-10-21 09:06] VITALS: BMI 24.7
[2024-10-21 11:25] LABS: Glucose,Whole Blood 135 mg/dL (70-110)
--- NOTE | 2024-10-21 12:07 | P.PN ---
Subjective Progress Note Date: 10/21/24 Principal diagnosis: Acute diabetic ketoacidosis This is a 44-year-old male patient with DKA. The patient came into the emergency department not feeling well, altered and the patient was found naked on the floor. Blood sugar was above 500. Initial blood work showed a glucose of above 800. Sodium levels at 141, potassium is at 6.2, serum bicarb was less than 5, the patient has an anion gap metabolic acidosis with a BUN of 44 and a creatinine of 1.5. Urine drug screen is negative. Serum acetone is positive. Viral screen is negative. The WBC count is 17.1. Chest x-ray shows smaller lung volumes and generalized hazy appearance could be related to atelectasis. CAT scan of the brain was done and showed no acute abnormalities. Nonspecific white matter changes and small chronic ischemic vessel disease. The patient was sedated with IV fluids. The patient is currently on insulin drip and normal saline at rate of 200 cc an hour. Already received a total of 2 L bolus. Also given his dose of sodium bicarb and started on insulin drip. Also started on empiric antibiotic coverage with Rocephin.- On 10/20/2024, the patient is somewhat delirious. He keeps on saying that we are scaring him. No focal neurological deficits. He presented to us with DKA. He was treated accordingly. He was fluid resuscitated. He was started on IV insulin and subsequently switched to Levemir insulin 23 units daily and sliding scale coverage as the patient had complete closure of his anion gap metabolic acidosis. He is also on D5 water as the patient has developed some hyponatremia. Sodium levels are elevated at 152. Potassium is at 4.1 and a bicarb is at 27. BUN is 18 with a creatinine of 0.59. The white cell count was at 17.3. Cultures are negative. No nausea. No emesis. No abdominal pain. No headaches. No focal neurological deficits. Patient was seen today on 10/21/2024, patient is doing quite well from the diabetes perspective, his anion gap has completely closed, blood sugars are under control, however the patient was agitated yesterday required Precedex remains on Precedex at 0.1 mcg/kg/h, and I have recommended stopping Precedex today, and hopefully can arrange for the patient to transfer out of the ICU to a medical surgical floor. Labs from today were all reviewed basically unremarkable. Objective - Vital Signs Vital signs: Vital Signs Temp 97.7 F 10/21/24 08:00 Pulse 66 10/21/24 10:00 Resp 13 10/21/24 10:00 BP 116/70 10/21/24 10:00 Pulse Ox 97 10/21/24 10:00 FiO2 Intake & Output 10/20/24 10/21/24 10/21/24 18:59 06:59 18:59 Intake Total 2793.074 0852.164 510.059 Output Total 762 1560 430 Balance 965.607 416.164 80.059 Weight 78.3 kg 78.3 kg Intake: IV 1725 1650 200 D5-0.45% NaCl with KCl 75 20Meq/l 1,000 ml @ 75 mls /hr IV .[id number] TIN Rx#: [id number] Dextrose 5% in Water 1, 1350 1650 150 000 ml @ 150 mls/hr IV . Q6H40M TIN Rx#:[id number] Potassium Chloride 10 meq 200 In Water For Injection 1 100ml.bag @ 100 mls/hr IVPB Q1H TIN Rx#: [id number] cefTRIAXone 1 gm In 100 50 Sodium Chloride 0.9% 50 ml @ 100 mls/hr IVPB Q24HR TIN Rx#:[id number] Intake, IV Titration 2.607 76.164 70.059 Amount Dexmedetomidine/0.9% NaCl 2.607 76.164 70.059 (Pmx) 400 mcg In Empty Bag 1 bag @ 0.2 MCG/KG/HR 3.96 mls/hr IV .Q24H TIN Rx#:[id number] Oral 250 240 Output: Urine 762 1560 430 Other: Voiding Method Indwelling Catheter Indwelling Catheter Indwelling Catheter - Exam General: Revealed 44-year-old white male in no distress Derm: warm, dry Head: Atraumatic, normocephalic Eyes: EOMI, no lid lag, anicteric sclera Mouth: Unremarkable, no evidence of thrush. Moist mucous membranes Cardiovascular: Distant S1-S2, no S3 gallop, no murmur Lungs: Symmetrical chest expansion clear bilaterally no rhonchi no wheezes Abdominal: soft nontender no megaly no rebound no guarding. Ext: No clubbing edema or cyanosis, Neuro: Alert oriented x 3 no gross focal deficit Psychiatric: Normal mood affect and normal mental status examination - Labs CBC & Chem 7: 10/21/24 04:40 10/21/24 04:40 Labs: Abnormal Lab Results - Last 24 Hours (Table) 10/19/24 10/20/24 10/20/24 Range/Units 15:40 14:34 16:18 RBC (4.30-5.90) m/uL Hgb (13.0-17.5) gm/dL Hct (39.0-53.0) % Potassium (3.5-5.1) mmol/L Chloride 114 H (98-107) mmol/L Creatinine 0.61 L (0.66-1.25) mg/dL Glucose 256 H (74-99) mg/dL POC Glucose (mg/dL) 274 H (70-110) mg/dL Hemoglobin A1c >18.0 H (<=6.0) % 10/20/24 10/21/24 10/21/24 Range/Units 20:30 02:05 04:40 RBC 4.29 L (4.30-5.90) m/uL Hgb 12.6 L (13.0-17.5) gm/dL Hct 38.5 L (39.0-53.0) % Potassium (3.5-5.1) mmol/L Chloride (98-107) mmol/L Creatinine (0.66-1.25) mg/dL Glucose (74-99) mg/dL POC Glucose (mg/dL) 285 H 170 H (70-110) mg/dL Hemoglobin A1c (<=6.0) % 10/21/24 10/21/24 10/21/24 Range/Units 04:40 06:43 11:24 RBC (4.30-5.90) m/uL Hgb (13.0-17.5) gm/dL Hct (39.0-53.0) % Potassium 3.3 L (3.5-5.1) mmol/L Chloride 112 H (98-107) mmol/L Creatinine 0.55 L (0.66-1.25) mg/dL Glucose 165 H (74-99) mg/dL POC Glucose (mg/dL) 216 H 135 H (70-110) mg/dL Hemoglobin A1c (<=6.0) % Microbiology - Last 24 Hours (Table) 10/19/24 09:51 Blood Culture - Preliminary Blood Assessment and Plan Assessment: Action: Acute DKA with severe anion gap metabolic acidosis, recovered hypernatremia currently on D5 water, resolved Hyperkalemia secondary to severe metabolic acidosis, recovered Acute kidney injury, resolved Diabetes mellitus type 1 Previous history of BKA involving the right lower extremity Delirium, CAT scan of the brain at time of admission is negative and the patient's neurologic exam is nonfocal. recommendation: Continue present supportive care measures Will discontinue Precedex Will consider transferring the patient to a medical surgical floor Will follow Time with Patient: Less than 30
[2024-10-21 16:22] LABS: Glucose,Whole Blood 224 mg/dL (70-110)
[2024-10-21] MEDS: ACETAMINOPHEN TAB 325 MG TAB PO PRN (19:13)
[2024-10-21 19:53] LABS: Glucose,Whole Blood 165 mg/dL (70-110)
[2024-10-21 21:11] LABS: Glucose,Whole Blood 167 mg/dL (70-110)
[2024-10-22 01:51] LABS: Glucose,Whole Blood 216 mg/dL (70-110)
[2024-10-22 05:53] LABS: African American GFR (CKD) >90 (>60 ml/min/1.73 sqM); Anion Gap 4 mmol/L; Blood Urea Nitrogen 8 mg/dL (9-20); Carbon Dioxide 27 mmol/L (22-30); Chloride 109 mmol/L (98-107); Glucose 186 mg/dL (74-99); Magnesium 2.1 mg/dL (1.6-2.3); Non-African American GFR(CKD) >90 (>60 ml/min/1.73 sqM); Potassium 3.7 mmol/L (3.5-5.1); Sodium 140 mmol/L (137-145)
[2024-10-22 06:04] LABS: Glucose,Whole Blood 215 mg/dL (70-110)
[2024-10-22 06:49] LABS: Glucose,Whole Blood 207 mg/dL (70-110)
[2024-10-22 11:02] LABS: Glucose,Whole Blood 125 mg/dL (70-110)
--- NOTE | 2024-10-22 11:26 | P.PN ---
Subjective Progress Note Date: 10/22/24 Principal diagnosis: Acute diabetic ketoacidosis This is a 44-year-old male patient with DKA. The patient came into the emergency department not feeling well, altered and the patient was found naked on the floor. Blood sugar was above 500. Initial blood work showed a glucose of above 800. Sodium levels at 141, potassium is at 6.2, serum bicarb was less than 5, the patient has an anion gap metabolic acidosis with a BUN of 44 and a creatinine of 1.5. Urine drug screen is negative. Serum acetone is positive. Viral screen is negative. The WBC count is 17.1. Chest x-ray shows smaller lung volumes and generalized hazy appearance could be related to atelectasis. CAT scan of the brain was done and showed no acute abnormalities. Nonspecific white matter changes and small chronic ischemic vessel disease. The patient was sedated with IV fluids. The patient is currently on insulin drip and normal saline at rate of 200 cc an hour. Already received a total of 2 L bolus. Also given his dose of sodium bicarb and started on insulin drip. Also started on empiric antibiotic coverage with Rocephin.- On 10/20/2024, the patient is somewhat delirious. He keeps on saying that we are scaring him. No focal neurological deficits. He presented to us with DKA. He was treated accordingly. He was fluid resuscitated. He was started on IV insulin and subsequently switched to Levemir insulin 23 units daily and sliding scale coverage as the patient had complete closure of his anion gap metabolic acidosis. He is also on D5 water as the patient has developed some hyponatremia. Sodium levels are elevated at 152. Potassium is at 4.1 and a bicarb is at 27. BUN is 18 with a creatinine of 0.59. The white cell count was at 17.3. Cultures are negative. No nausea. No emesis. No abdominal pain. No headaches. No focal neurological deficits. Patient was seen today on 10/21/2024, patient is doing quite well from the diabetes perspective, his anion gap has completely closed, blood sugars are under control, however the patient was agitated yesterday required Precedex remains on Precedex at 0.1 mcg/kg/h, and I have recommended stopping Precedex today, and hopefully can arrange for the patient to transfer out of the ICU to a medical surgical floor. Labs from today were all reviewed basically unremarkable. Seen today on 10/22/2024, patient is doing great, asymptomatic, off Precedex, patient would like to be discharged home, from my perspective I have no problem clearing the patient to be discharged as long as he is cleared by his admitting physician. Objective - Vital Signs Vital signs: Vital Signs Temp 98.3 F 10/22/24 01:58 Pulse 89 10/22/24 01:58 Resp 14 10/22/24 01:58 BP 147/96 10/22/24 01:58 Pulse Ox 98 10/22/24 01:58 FiO2 Intake & Output 10/21/24 10/22/24 10/22/24 18:59 06:59 18:59 Intake Total 990.059 200 Output Total 1355 600 Balance -364.941 -400 Weight 78.3 kg Intake: IV 200 Dextrose 5% in Water 1, 150 000 ml @ 150 mls/hr IV . Q6H40M TIN Rx#:[id number] cefTRIAXone 1 gm In 50 Sodium Chloride 0.9% 50 ml @ 100 mls/hr IVPB Q24HR TIN Rx#:[id number] Intake, IV Titration 70.059 Amount Dexmedetomidine/0.9% NaCl 70.059 (Pmx) 400 mcg In Empty Bag 1 bag @ 0.2 MCG/KG/HR 3.96 mls/hr IV .Q24H TIN Rx#:[id number] Oral 720 200 Output: Urine 1355 600 Other: Voiding Method Indwelling Catheter Indwelling Catheter - Exam General: Revealed 44-year-old white male in no distress, on room air Derm: warm, dry Head: Atraumatic, normocephalic Eyes: EOMI, no lid lag, anicteric sclera Mouth: Unremarkable, no evidence of thrush. Moist mucous membranes Cardiovascular: Distant S1-S2, no S3 gallop, no murmur Lungs: Symmetrical chest expansion clear bilaterally no rhonchi no wheezes Abdominal: soft nontender no megaly no rebound no guarding. Ext: No clubbing edema or cyanosis, Neuro: Alert oriented x 3 no gross focal deficit Psychiatric: Normal mood affect and normal mental status examination - Labs CBC & Chem 7: 10/21/24 04:40 10/22/24 05:26 Labs: Abnormal Lab Results - Last 24 Hours (Table) 10/21/24 10/21/24 10/21/24 Range/Units 11:24 16:21 19:51 Chloride (98-107) mmol/L BUN (9-20) mg/dL Creatinine (0.66-1.25) mg/dL Glucose (74-99) mg/dL POC Glucose (mg/dL) 135 H 224 H 165 H (70-110) mg/dL 10/21/24 10/22/24 10/22/24 Range/Units 21:10 01:49 05:26 Chloride 109 H (98-107) mmol/L BUN 8 L (9-20) mg/dL Creatinine 0.53 L (0.66-1.25) mg/dL Glucose 186 H (74-99) mg/dL POC Glucose (mg/dL) 167 H 216 H (70-110) mg/dL 10/22/24 10/22/24 10/22/24 Range/Units 06:02 06:48 10:59 Chloride (98-107) mmol/L BUN (9-20) mg/dL Creatinine (0.66-1.25) mg/dL Glucose (74-99) mg/dL POC Glucose (mg/dL) 215 H 207 H 125 H (70-110) mg/dL Microbiology - Last 24 Hours (Table) 10/19/24 09:51 Blood Culture - Preliminary Blood Assessment and Plan Assessment: Action: Acute DKA with severe anion gap metabolic acidosis, recovered hypernatremia, resolved Hyperkalemia secondary to severe metabolic acidosis, recovered Acute kidney injury, resolved Diabetes mellitus type 1 Previous history of BKA involving the right lower extremity Delirium, CAT scan of the brain at time of admission is negative and the patient's neurologic exam is nonfocal./Delirium has resolved recommendation: Continue present supportive care measures Consider discharge planning, will clear the patient for discharge if cleared by his admitting physician Continue Levemir insulin and sliding scale NovoLog insulin. If not discharged patient could be transferred to medical surgical floor. Time with Patient: Less than 30
[2024-10-22 11:49] VITALS: BP 187/112; PULSE 103; RESP 17; TEMP 97.6
[2024-10-22] MEDS ORDERED: INSULIN ASPART (NovoLOG) 100 UNIT/ML VIAL SQ SCH (12:30)
--- NOTE | 2024-10-22 13:45 | P.DS ---
Providers Date of admission: 10/19/24 10:45 Attending physician: Irving Mendosa Consults: 10/19/24 11:55 Consult Physician Urgent Consulting Provider: Alejandrina Arevalo Consult Reason/Comments: Diabetic ketoacidosis Do you want consulting provider notified?: Yes Primary care physician: Stated None Hospital Course: Discharge Diagnosis: Severe anion gap metabolic acidosis secondary to DKA Acute hypernatremia, resolved Hyperkalemia secondary to metabolic acidosis, resolved YAHAIRA secondary to above, resolved Uncontrolled type I DM Medications noncompliance Acute metabolic encephalopathy with delirium secondary to above, resolved x Hospital Course: 44-year-old male with past medical history of type I DM, right BKA, who presented to the ED after he was found unresponsive and covered with vomit by his significant other. Patient does have history of medications noncompliance, In the ED he underwent extensive evaluation. BP 110/79, HR 115, Tmax 101F, RR 24, 97% on RA. CBC, Coag panel, CMP significant for WBC 17.1, K 6.2, bicarb < 5, BUN 44, Cr 1.5, glu 808. CPK 139. ABG pH 7.22, pCO2 16. UDS neg. Acetone +. COVID, RSV, Flu neg. EKG sinus tachycardia moderate ST depression. CXR low lung volumes, atelectasis versus atypical PNA. CT brain no acute process. Patient is admitted to ICU for further workup and management.Started on insulin drip and eventually transitioned to SQ insulin on 10/19. He did have hypernatremia for which he was started on D5W. His sodium has been improving. Despite resolution of DKA, patient noted to be confused and agitated requiring sitter and frequent re-direction. Started on Haldol PRN and Precedex. Started on insulin drip and eventually transitioned to SQ insulin on 10/19. He did have hypernatremia for which he was started on D5W. His sodium has been improving. Despite resolution of DKA, patient noted to be confused and agitated requiring sitter and frequent re-direction. Started on Haldol PRN and Precedex. Patient seen and examined at bedside.[] Vital signs reviewed and stable. General: [nontoxic], [no distress], [appears at stated age] Derm: [warm], [dry] Head: [atraumatic], [normocephalic], [symmetric] Eyes: [EOMI], [no lid lag], [anicteric sclera] Mouth: [no lip lesion], [mucus membranes moist] Cardiovascular: [S1S2 reg], [no murmur] Lungs: [CTA bilateral], [no rhonchi, no rales] , [no accessory muscle use] Abdominal: [soft], [ nontender to palpation], [no guarding], [no appreciable organomegaly] Ext: [no gross muscle atrophy], [no edema], [no contractures], right BKA Neuro: [ CN II-XI grossly intact], [no focal neuro deficits] Psych: [Alert], [oriented], [appropriate affect] A total of 40 minutes of time were spent preparing this complex discharge summary. Patient was discharged on 10/22/24 Plan - Discharge Summary Discharge Rx Participant: Yes New Discharge Prescriptions: New Insulin Detemir [Levemir Flexpen] 25 units SQ DAILY #7 each Insulin Aspart [NovoLOG Flexpen] 8 units SQ AC-TID #7 each Insulin Aspart [NovoLOG Flexpen] See Rx Instructions .ROUTE .COMPLEX #7 each Glucagon Emergency Kit 1 mg IM ONCE #3 kit Blood Sugar Diagnostic [Glucose Test Strip] 1 each MC TID BETWEEN MEALS #120 strip Discontinued Insulin Aspart [NovoLOG Flexpen] See Protocol SQ ACHS PRN PRN Reason: high blood sugar Discharge Medication List Blood Sugar Diagnostic [Glucose Test Strip] 1 each MC TID BETWEEN MEALS #120 strip 10/22/24 [Rx] Glucagon Emergency Kit 1 mg IM ONCE #3 kit 10/22/24 [Rx] Insulin Aspart [NovoLOG Flexpen] 8 units SQ AC-TID #7 each 10/22/24 [Rx] Insulin Aspart [NovoLOG Flexpen] See Rx Instructions .ROUTE .COMPLEX #7 each 10/22/24 [Rx] Insulin Detemir [Levemir Flexpen] 25 units SQ DAILY #7 each 10/22/24 [Rx] Follow up Appointment(s)/Referral(s): [facility] [NON-STAFF] - 10/24/24 4:00 pm None,Stated [Primary Care Provider] - 1-2 days Patient Instructions/Handouts: Insulin Aspart, Recombinant (By injection), Diabetic Ketoacidosis (DC), How to Check your Blood Sugar (DC) Activity/Diet/Wound Care/Special Instructions: Please, establish care with primary care provider as well as arranged by our case management. Please, make sure that you check your blood glucose levels 4 times a day, in the morning and before meals, before going to bed. Please make sure that you use your long-acting insulin every single day and you cover all your meals with short acting insulin including mealtime insulin and sliding scale insulin. Low blood glucose is when your levels fall below 70 mg/dL Use the 15/15 rule of 15g fast-acting carbs/15 minutes rule to treat low blood glucose It's important to treat low blood glucose levels as soon as possible, as they can quickly become dangerous Severe low blood glucose is an emergency and will require help from others to treat it Discharge/Stand Alone Forms: Who Do I Call?, Area PCPs Discharge Disposition: HOME SELF-CARE
[2024-10-22] MEDS ORDERED: INSULIN DETEMIR (LEVEMIR) 100 UNIT/ML SYR SQ SCH (21:00)
== END 2024-10-22 15:15 | disposition home or self-care (01) | DRG 871 ==
LOC: EC 09:29 → 2SICU 10:45
PROVIDERS: ADMIT Student in an Organized Health Care Education/Training Program; ATTEND Student in an Organized Health Care Education/Training Program
DX: A41.9 Sepsis, unspecified organism (principal); E10.10 Type 1 diabetes mellitus with ketoacidosis without coma; G93.41 Metabolic encephalopathy; E87.0 Hyperosmolality and hypernatremia; N17.9 Acute kidney failure, unspecified; F05 Delirium due to known physiological condition; J98.11 Atelectasis; E87.1 Hypo-osmolality and hyponatremia; E87.6 Hypokalemia; E87.5 Hyperkalemia; Z91.148 Patient's other noncompliance with medication regimen for other reason; Z79.4 Long term (current) use of insulin; Z89.511 Acquired absence of right leg below knee
CPT/HCPCS: 36415; 36600; 70450; 71045; 80048; 80051; 80306; 81001; 82009; 82550; 82565; 82803; 82805; 82947; 83036; 83735; 84100; 84520; 85025; 85027; 87040; 87636; 93005; 96361; 96374; 96375; 99291

== ENCOUNTER 2025-03-10 16:33 | Emergency (ER) | payer MEDICARE ==
[2025-03-10 16:53] VITALS: RESP 18; TEMP 98.4
[2025-03-10 16:58] LABS: Glucose,Whole Blood 248 mg/dL (70-110)
[2025-03-10 18:12] LABS: Glucose,Whole Blood 250 mg/dL (70-110)
[2025-03-10] MEDS: PROPARACAINE 0.5% OPHTH DROPS 15 ML BTL LEFT EYE STA (18:18)
[2025-03-10] MEDS: FLUORESCEIN STRIPS 1 MG STRIP LEFT EYE ONE (18:18)
--- NOTE | 2025-03-10 18:19 | ED ---
General Adult HPI - General Chief complaint: Recheck/Abnormal Lab/Rx Stated complaint: pain, vision loss Time Seen by Provider: 03/10/25 18:13 Source: patient, RN notes reviewed Mode of arrival: wheelchair Limitations: no limitations - History of Present Illness Initial comments: 44-year-old male with history of diabetes presenting for left eye vision loss x 2 months. States gradually over the past 2 months he has been experiencing "tree branches" in his eye that is causing him left-sided vision loss. States this is painless. No foreign body sensation or left eye pain. Symptoms are only present in the left eye. Patient also states he is legally blind. Patient states he has been meaning to seek medical attention for this but just got out of long term. Denies contacts or glasses. States 2 years ago he was told that he had very high pressures in his left eye and diagnosed with chronic glaucoma and was given drops that he intermittently uses to lower the pressure. - Related Data Previous Rx's Medication Instructions Recorded Blood Sugar Diagnostic [Glucose 1 each MC TID BETWEEN MEALS #120 10/22/24 Test Strip] strip Glucagon Emergency Kit 1 mg IM ONCE #3 kit 10/22/24 Insulin Aspart [NovoLOG Flexpen] 8 units SQ AC-TID #7 each 10/22/24 Insulin Aspart [NovoLOG Flexpen] See Rx Instructions .ROUTE 10/22/24 .COMPLEX #7 each Insulin Detemir [Levemir Flexpen] 25 units SQ DAILY #7 each 10/22/24 Allergies Allergy/AdvReac Type Severity Reaction Status Date / Time No Known Allergies Allergy Verified 03/10/25 16:54 Review of Systems ROS Statement: Those systems with pertinent positive or pertinent negative responses have been documented in the HPI. ROS Other: All systems not noted in ROS Statement are negative. 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 Past Anesthesia/Blood Transfusion Reactions: Previous Problems w/ Anesthesia Additional Past Anesthesia/Blood Transfusion Reaction / Comment(s): "lost sight when he woke up from anesthesia during hip surgery" Past Psychological History: No Psychological Hx Reported Smoking Status: Former smoker Past Alcohol Use History: Rare Past Drug Use History: Marijuana - Past Family History Mother Family Medical History: Coronary Artery Disease (CAD) General Exam Limitations: no limitations General appearance: alert, in no apparent distress Head exam: Present: atraumatic, normocephalic, normal inspection Eye exam: Present: normal appearance, PERRL, EOMI, other (Fluorescein stain negative for uptake, average left intraocular pressure 33). Absent: scleral icterus, conjunctival injection, periorbital swelling Neurological exam: Present: alert, oriented X3 Psychiatric exam: Present: normal affect, normal mood Skin exam: Present: warm, dry, intact, normal color. Absent: rash Course Vital Signs 03/10/25 16:50 Temperature 98.4 F Pulse Rate 100 Respiratory 18 Rate Blood Pressure 104/71 O2 Sat by Pulse 98 Oximetry Medical Decision Making - Medical Decision Making Was pt. sent in by a medical professional or institution (, PA, BUDGET ACCOUNTANT, urgent care, hospital, or halfway...) When possible be specific @ -No Did you speak to anyone other than the patient for history (EMS, parent, family, police, friend...)? What history was obtained from this source @ -No Did you review nursing and triage notes (agree or disagree)? Why? @ -I reviewed and agree with nursing and triage notes Were old charts reviewed (outside hosp., previous admission, EMS record, old EKG, old radiological studies, urgent care reports/EKG's, halfway records)? Report findings @ -No old charts were reviewed Differential Diagnosis (chest pain, altered mental status, abdominal pain women, abdominal pain men, vaginal bleeding, weakness, fever, dyspnea, syncope, headache, dizziness, GI bleed, back pain, seizure, CVA, palpatations, mental health, musculoskeletal)? @ -Retinal vein occlusion, retinal detachment, central retinal artery occlusion, open angle glaucoma, optic neuritis EKG interpreted by me (3pts min.). @ -None X-rays interpreted by me (1pt min.). @ -None done CT interpreted by me (1pt min.). @ -None done U/S interpreted by me (1pt. min.). @ -None done What testing was considered but not performed or refused? (CT, X-rays, U/S, labs)? Why? @ -None What meds were considered but not given or refused? Why? @ -None Did you discuss the management of the patient with other professionals (professionals i.e. , PA, BUDGET ACCOUNTANT, lab, RT, psych nurse, social and human services assistant, room service server, teacher, chief digital media officer, case management specialist)? Give summary @ -No Was smoking cessation discussed for >3mins.? @ -No Was critical care preformed (if so, how long)? @ -No Were there social determinants of health that impacted care today? How? (Homelessness, low income, unemployed, alcoholism, drug addiction, transportation, low edu. Level, literacy, decrease access to med. care, long term, rehab)? @ -No Was there de-escalation of care discussed even if they declined (Discuss DNR or withdrawal of care, Hospice)? DNR status @ -No What co-morbidities impacted this encounter? (DM, HTN, Smoking, COPD, CAD, Cancer, CVA, ARF, Chemo, Hep., AIDS, mental health diagnosis, sleep apnea, morbid obesity)? @ -None Was patient admitted / discharged? Hospital course, mention meds given and route, prescriptions, significant lab abnormalities, going to OR and other pertinent info. @ -Discharge. 44-year-old male with history of diabetes presenting for left eye painless vision loss x 2 months. Fluorescein stain negative for uptake, intraocular pressure 33. As patient states he has a history of glaucoma and symptoms have been ongoing for 2 months, patient can follow-up outpatient with ophthalmology. Discussed likely diagnosis of chronic open-angle glaucoma. Appropriate return precautions discussed. Case was discussed in detail with my ED attending Dr. Alvarenga. Undiagnosed new problem with uncertain prognosis? @ -No Drug Therapy requiring intensive monitoring for toxicity (Heparin, Nitro, Insulin, Cardizem)? @ -No Were any procedures done? @ -No Diagnosis/symptom? @ - left open-angle glaucoma Acute, or Chronic, or Acute on Chronic? @ -Chronic Uncomplicated (without systemic symptoms) or Complicated (systemic symptoms)? @ -Uncomplicated Side effects of treatment? @ -No Exacerbation, Progression, or Severe Exacerbation? @ -No Poses a threat to life or bodily function? How? (Chest pain, [place], [place], pneumonia, PE, COPD, DKA, ARF, appy, cholecystitis, CVA, Diverticulitis, Homicidal, Suicidal, threat to staff... and all critical care pts) @ -Not at this time - Lab Data Lab Results 03/10/25 03/10/25 Range/Units 16:57 18:10 POC Glucose (mg/dL) 248 H 250 H (70-110) mg/dL POC Glu Adjunct Professor Of Law ID Zoltan Ren Disposition Clinical Impression: Open-angle glaucoma of left eye Disposition: HOME SELF-CARE Condition: Stable Instructions (If sedation given, give patient instructions): Glaucoma (ED) Additional Instructions: Follow-up with Dr. Cameron from ophthalmology for further workup. Please return to the Emergency Department if symptoms worsen or any other concerns. Is patient prescribed a controlled substance at d/c from ED?: No Referrals: None,Stated [Primary Care Provider] - 1-2 days Jose Cameron MD [STAFF PHYSICIAN] - 1-2 days Time of Disposition: 19:05
[2025-03-10 19:16] VITALS: BP 113/74; PULSE 77
== END 2025-03-10 19:15 | disposition home or self-care (01) ==
LOC: EC 16:33
DX: H40.1124 Primary open-angle glaucoma, left eye, indeterminate stage (principal); Z87.891 Personal history of nicotine dependence
CPT/HCPCS: 36415; 99283

== ENCOUNTER 2025-03-11 06:41 | Emergency (ER) | payer MEDICARE ==
--- NOTE | 2025-03-11 06:52 | ED ---
General Adult HPI - General Source: patient, police, EMS, RN notes reviewed Mode of arrival: EMS Limitations: no limitations <Yared Valdes - Last Filed: 03/11/25 10:20> <William Olivas - Last Filed: 03/11/25 12:52> - General Stated complaint: SI Time Seen by Provider: 03/11/25 06:44 - History of Present Illness Initial comments: 44-year-old male presents emergency department via EMS with police for psychiatric valuation. Patient reports increasing depression, suicide ideation. Patient states he is currently going through a divorce states that he is blind and depends on his EX significant other for help as he is a known diabetic. Blood sugar 260. Patient states this is not abnormal for him. He denies any nausea vomiting diarrhea constipation. Patient denies any alcohol or drug use. Patient denies any other associated complaints. (Yared Valdes) - Related Data Home Medications Medication Instructions Recorded Confirmed Insulin Aspart [NovoLOG Flexpen] See Protocol SQ AC-TID 03/11/25 03/11/25 Insulin Glargine,Hum.rec.anlog 25 units SQ HS 03/11/25 03/11/25 [Lantus Solostar Pen] Allergies Allergy/AdvReac Type Severity Reaction Status Date / Time No Known Allergies Allergy Verified 03/11/25 10:29 Review of Systems ROS Other: All systems not noted in ROS Statement are negative. <Yared Valdes - Last Filed: 03/11/25 10:20> ROS Other: All systems not noted in ROS Statement are negative. <William Olivas - Last Filed: 03/11/25 12:52> ROS Statement: Those systems with pertinent positive or pertinent negative responses have been documented in the HPI. 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 Past Anesthesia/Blood Transfusion Reactions: Previous Problems w/ Anesthesia Additional Past Anesthesia/Blood Transfusion Reaction / Comment(s): "lost sight when he woke up from anesthesia during hip surgery" Past Psychological History: No Psychological Hx Reported Smoking Status: Former smoker Past Alcohol Use History: Rare Past Drug Use History: Marijuana - Past Family History Mother Family Medical History: Coronary Artery Disease (CAD) <Yared Valdes - Last Filed: 03/11/25 10:20> General Exam Limitations: no limitations General appearance: alert, in no apparent distress Head exam: Present: atraumatic, normocephalic, normal inspection Eye exam: Present: normal appearance, PERRL, EOMI. Absent: scleral icterus, conjunctival injection, periorbital swelling ENT exam: Present: normal exam, mucous membranes moist Neck exam: Present: normal inspection, full ROM. Absent: tenderness, meningismus, lymphadenopathy Respiratory exam: Present: normal lung sounds bilaterally. Absent: respiratory distress, wheezes, rales, rhonchi, stridor Cardiovascular Exam: Present: regular rate, normal rhythm, normal heart sounds. Absent: systolic murmur, diastolic murmur, rubs, gallop, clicks GI/Abdominal exam: Present: soft, normal bowel sounds. Absent: distended, tenderness, guarding, rebound, rigid Extremities exam: Absent: normal inspection (Lower extremity prosthetic) Neurological exam: Present: alert Psychiatric exam: Present: depressed <MarlenyYared menjivar - Last Filed: 03/11/25 10:20> Course Vital Signs 03/11/25 06:46 Temperature 98.3 F Pulse Rate 97 Respiratory 19 Rate Blood Pressure 121/79 O2 Sat by Pulse 99 Oximetry Medical Decision Making <MarlenyottoYared Major - Last Filed: 03/11/25 10:20> - Lab Data Result diagrams: 03/11/25 12:00 03/11/25 12:00 <William Olivas - Last Filed: 03/11/25 12:52> - Medical Decision Making Was pt. sent in by a medical professional or institution (, PA, CAROUSEL ATTENDANT, urgent care, hospital, or fci...) When possible be specific @ -No Did you speak to anyone other than the patient for history (EMS, parent, family, police, friend...)? What history was obtained from this source @ -No Did you review nursing and triage notes (agree or disagree)? Why? @ -I reviewed and agree with nursing and triage notes Were old charts reviewed (outside hosp., previous admission, EMS record, old EKG, old radiological studies, urgent care reports/EKG's, fci records)? Report findings @ -No old charts were reviewed Differential Diagnosis (chest pain, altered mental status, abdominal pain women, abdominal pain men, vaginal bleeding, weakness, fever, dyspnea, syncope, headache, dizziness, GI bleed, back pain, seizure, CVA, palpatations, mental he alth, musculoskeletal)? @ -[Differential Mental Health Depression, anxiety, bipolar, psychosis, schizophrenia, borderline personality, situational depression, adjustment disorder, behavioral disorder, brain tumor, malingering, substance abuse, encephalopathy, medication reaction, dementia, hypothyroidism, degenerative neurologic disorder, lupus.... This is not meant to be all-inclusive list EKG interpreted by me (3pts min.). @ -None X-rays interpreted by me (1pt min.). @ -None done CT interpreted by me (1pt min.). @ -None done U/S interpreted by me (1pt. min.). @ -None done What testing was considered but not performed or refused? (CT, X-rays, U/S, labs)? Why? @ -None What meds were considered but not given or refused? Why? @ -None Did you discuss the management of the patient with other professionals (professionals i.e. , PA, CAROUSEL ATTENDANT, lab, RT, psych nurse, psychiatric social worker, admiralty lawyer, teacher, sea air land officer, trimming caser)? Give summary @ -EP evaluated the patient and recommended transfer to psychiatric facility secondary to core morbidities. Was smoking cessation discussed for >3mins.? @ -No Was critical care preformed (if so, how long)? @ -No Were there social determinants of health that impacted care today? How? (Homelessness, low income, unemployed, alcoholism, drug addiction, sewell sportation, low edu. Level, literacy, decrease access to med. care, fdc, rehab)? @ -No Was there de-escalation of care discussed even if they declined (Discuss DNR or withdrawal of care, Hospice)? DNR status @ -No What co-morbidities impacted this encounter? (DM, HTN, Smoking, COPD, CAD, Cancer, CVA, ARF, Chemo, Hep., AIDS, mental health diagnosis, sleep apnea, morbid obesity)? @ -Diabetes Was patient admitted / discharged? Hospital course, mention meds given and route, prescriptions, significant lab abnormalities, going to OR and other pertinent info. @ -Transferred to psychiatric facility for depression, suicide lesion. Undiagnosed new problem with uncertain prognosis? @ -No Drug Therapy requiring intensive monitoring for toxicity (Heparin, Nitro, Insulin, Cardizem)? @ -No Were any procedures done? @ -No Diagnosis/symptom? @ -Depression, suicide ideation, Acute, or Chronic, or Acute on Chronic? @ -Acute Uncomplicated (without systemic symptoms) or Complicated (systemic symptoms)? @ -Complicated Side effects of treatment? @ -No Exacerbation, Progression, or Severe Exacerbation? @ -No Poses a threat to life or bodily function? How? (Chest pain, [place], [place], pneumonia, PE, COPD, DKA, ARF, appy, cholecystitis, CVA, Diverticulitis, Homicidal, Suicidal, threat to staff... and all critical care pts) @ -Yes suicidal (Yared Valdes) Clinical certificate completed by myself. Patient is pending psychiatric placement. Being admitted for suicidal ideation with plan to jump in a river as well as depression. (William Olivas) - Lab Data Lab Results 03/11/25 03/11/25 03/11/25 Range/Units 07:49 12:00 12:00 WBC 8.12 (4.50-10.00) 10*3/uL RBC 4.57 (4.40-5.60) 10*6/uL Hgb 13.3 (13.0-17.0) g/dL Hct 38.4 L (39.6-50.0) % MCV 84.0 (80.0-97.0) fL MCH 29.1 (27.0-32.0) pg MCHC 34.6 (32.0-37.0) g/dL Plt Count 279 (140-440) 10*3/uL MPV 10.4 (9.5-12.2) fL Immature Gran % (Auto) 0.2 % Neutrophils % 53.5 % Lymphocytes % 35.5 % Monocytes % 7.9 % Eosinophils % 1.8 % Basophils % 1.1 % Immature Gran # 0.02 (0.00-0.04) 10*3/uL Neutrophils # 4.34 (1.80-7.70) 10*3/uL Lymphocytes # 2.88 (0.90-5.00) 10*3/uL Monocytes # 0.64 (0.20-1.00) 10*3/uL Eosinophils # 0.15 (0.04-0.35) 10*3/uL Basophils # 0.09 (0.00-0.10) 10*3/uL Sodium 137 (137-145) mmol/L Potassium 4.7 (3.5-5.1) mmol/L Chloride 103 (98-107) mmol/L Carbon Dioxide 22 (22-30) mmol/L Anion Gap 12 mmol/L BUN 27 H (9-20) mg/dL Creatinine 1.15 (0.66-1.25) mg/dL Est GFR (CKD-EPI)AfAm 88 (>60 ml/min/1.73 sqM) Est GFR (CKD-EPI)NonAf 76 (>60 ml/min/1.73 sqM) Glucose 326 H (74-99) mg/dL Calcium 9.6 (8.4-10.2) mg/dL Total Bilirubin 2.1 H (0.2-1.3) mg/dL AST 17 (17-59) U/L ALT 14 (4-49) U/L Alkaline Phosphatase 66 (38-126) U/L Total Protein 7.0 (6.3-8.2) g/dL Albumin 4.1 (3.5-5.0) g/dL SARS-CoV-2 (PCR) Not Detected (Not Detectd) Disposition Time of Disposition: 10:22 <Yared Valdes - Last Filed: 03/11/25 10:20> <William Olivas - Last Filed: 03/11/25 12:52> Clinical Impression: Depression, Suicidal ideation Disposition: TRANSFER TO PSYCH HOSP/UNIT Condition: Stable Referrals: None,Stated [Primary Care Provider] - 1-2 days
[2025-03-11 12:05] LABS: Basophils # (A) 0.09 10*3/uL (0.00-0.10); Basophils % (A) 1.1 %; Eosinophils # (A) 0.15 10*3/uL (0.04-0.35); Eosinophils % (A) 1.8 %; HCT 38.4 % (39.6-50.0); HGB 13.3 g/dL (13.0-17.0); Lymphocytes # (A) 2.88 10*3/uL (0.90-5.00); Lymphocytes % (A) 35.5 %; MCH 29.1 pg (27.0-32.0); MCHC 34.6 g/dL (32.0-37.0); Mean Platelet Volume 10.4 fL (9.5-12.2); Monocytes # (A) 0.64 10*3/uL (0.20-1.00); Monocytes % (A) 7.9 %; Neutrophils # (A) 4.34 10*3/uL (1.80-7.70); Neutrophils % (A) 53.5 %; Platelet Count 279 10*3/uL (140-440); RBC 4.57 10*6/uL (4.40-5.60); WBC 8.12 10*3/uL (4.50-10.00)
[2025-03-11 12:28] LABS: ALT 14 U/L (4-49); AST 17 U/L (17-59); African American GFR (CKD) 88 (>60 ml/min/1.73 sqM); Albumin 4.1 g/dL (3.5-5.0); Alkaline Phosphatase 66 U/L (38-126); Anion Gap 12 mmol/L; Blood Urea Nitrogen 27 mg/dL (9-20); Calcium 9.6 mg/dL (8.4-10.2); Carbon Dioxide 22 mmol/L (22-30); Chloride 103 mmol/L (98-107); Glucose 326 mg/dL (74-99); Non-African American GFR(CKD) 76 (>60 ml/min/1.73 sqM); Potassium 4.7 mmol/L (3.5-5.1); Sodium 137 mmol/L (137-145); Total Bilirubin 2.1 mg/dL (0.2-1.3)
[2025-03-11 14:12] LABS: Appearance,Urine Clear (Clear); Bilirubin,Urine Negative (Negative); Blood,Urine Negative (Negative); Color,Urine Yellow; Glucose,Urine (UA) 4+ (Negative); Ketones,Urine Trace (Negative); Leukocyte Esterase,Urine Negative (Negative); Nitrite,Urine Negative (Negative); Protein,Urine Negative (Negative); Specific Gravity,Urine 1.016 (1.001-1.035); Urobilinogen,Urine <2.0 mg/dL (<2.0)
[2025-03-11 14:21] LABS: Amphetamine Screen,Urine Not Detected (NotDetected); Barbiturate Screen,Urine Not Detected (NotDetected); Benzodiazepines Screen,Urine Not Detected (NotDetected); Cocaine Screen,Urine Not Detected (NotDetected); Methadone Screen, Urine Not Detected (NotDetected); Opiate Screen,Urine Not Detected (NotDetected); Oxycodone Screen, Urine Not Detected (NotDetected); Phencyclidine Screen,Urine Not Detected (NotDetected); Tricyclic Antidepressant,Urine Not Detected (NotDetected); Urn Cannabinoid Scrn Not Detected (NotDetected)
[2025-03-11 21:30] LABS: Glucose,Whole Blood 359 mg/dL (70-110)
[2025-03-11] MEDS: INSULIN REGULAR 100 UNIT/ML VIAL (IM/SQ) SQ ONE (21:39)
[2025-03-11 21:48] VITALS: BP 133/90; PULSE 101; RESP 20; TEMP 98
== END 2025-03-11 21:46 ==
LOC: EC 06:41
DX: F32.A Depression, unspecified (principal); R45.851 Suicidal ideations; E11.9 Type 2 diabetes mellitus without complications; Z87.891 Personal history of nicotine dependence; Z11.52 Encounter for screening for COVID-19
CPT/HCPCS: 36415; 80053; 80306; 81003; 82075; 85025; 87635; 99285

== ENCOUNTER 2025-04-07 21:38 | Observation (INO) | payer MEDICARE ==
[2025-04-07 21:57] LABS: Glucose,Whole Blood 364 mg/dL (70-110)
--- NOTE | 2025-04-07 22:08 | ED ---
Dizziness HPI - General Chief Complaint: Dizziness Stated Complaint: Dizziness,Confusion Time Seen by Provider: 04/07/25 22:06 Source: patient, RN notes reviewed, old records reviewed Mode of arrival: wheelchair Limitations: no limitations - History of Present Illness Initial Comments: This is a 44-year-old male to the ER for evaluation today. Patient presents today for evaluation of weakness and elevated blood sugar, currently homeless just released from incarceration does not have a way to get home unable to control his blood sugar does not have any medications and blood sugar of needed as an outpatient basis. Patient states he feels unwell feels weak shaky but overall sick with nausea vomiting MD Complaint: dizziness, lightheadedness, other (Hyperglycemia) -: days(s) Timing: gradual onset History of Same: Yes History of Trauma: No Severity: moderate Improves With: nothing Associated Symptoms: loss of appetite, malaise, weakness - Related Data Home Medications Medication Instructions Recorded Confirmed Insulin Aspart [NovoLOG Flexpen] See Protocol SQ AC-TID 03/11/25 03/11/25 Insulin Glargine,Hum.rec.anlog 25 units SQ HS 03/11/25 03/11/25 [Lantus Solostar Pen] Allergies Allergy/AdvReac Type Severity Reaction Status Date / Time No Known Allergies Allergy Verified 04/07/25 21:56 Review of Systems ROS Statement: Those systems with pertinent positive or pertinent negative responses have been documented in the HPI. ROS Other: All systems not noted in ROS Statement are negative. 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 Past Anesthesia/Blood Transfusion Reactions: Previous Problems w/ Anesthesia Additional Past Anesthesia/Blood Transfusion Reaction / Comment(s): "lost sight when he woke up from anesthesia during hip surgery" Past Psychological History: No Psychological Hx Reported Smoking Status: Former smoker Past Alcohol Use History: Rare Past Drug Use History: Marijuana - Past Family History Mother Family Medical History: Coronary Artery Disease (CAD) General Exam General appearance: alert, in no apparent distress Head exam: Present: atraumatic, normocephalic, normal inspection Eye exam: Present: normal appearance, PERRL, EOMI. Absent: scleral icterus, conjunctival injection, periorbital swelling ENT exam: Present: normal exam, mucous membranes moist Neck exam: Present: normal inspection. Absent: tenderness, meningismus, lymphadenopathy Respiratory exam: Present: normal lung sounds bilaterally. Absent: respiratory distress, wheezes, rales, rhonchi, stridor Cardiovascular Exam: Present: regular rate, normal rhythm, normal heart sounds. Absent: systolic murmur, diastolic murmur, rubs, gallop, clicks GI/Abdominal exam: Present: soft, normal bowel sounds. Absent: distended, tenderness, guarding, rebound, rigid Extremities exam: Present: normal inspection, full ROM, normal capillary refill. Absent: tenderness, pedal edema, joint swelling, calf tenderness Back exam: Present: normal inspection Neurological exam: Present: alert, oriented X3, CN II-XII intact Psychiatric exam: Present: normal affect, normal mood Skin exam: Present: warm, dry, intact, normal color. Absent: rash Course Vital Signs 04/07/25 21:48 Temperature 98.0 F Pulse Rate 71 Respiratory 18 Rate Blood Pressure 99/74 O2 Sat by Pulse 99 Oximetry - Reevaluation(s) Reevaluation #1: 04/08/25 00:06 Medical records reviewed Reevaluation #2: 04/08/25 00:06 Patient symptoms unchanged Reevaluation #3: 04/08/25 00:06 Patient informed of results and questions answered Reevaluation #4: Was pt. sent in by a medical professional or institution (, PA, BATCH DUMPER, urgent care, hospital, or penitentiary...) When possible be specific @ -no Did you speak to anyone other than the patient for history (EMS, parent, family, police, friend...)? What history was obtained from this source @ -no Did you review nursing and triage notes (agree or disagree)? Why? @ -agree Are old charts reviewed (outside hosp., previous admission, EMS record, old EKG, old radiological studies, urgent care reports/EKG's, penitentiary records)? Report findings @ -yes Differential Diagnosis (chest pain, altered mental status, abdominal pain women, abdominal pain men, vaginal bleeding, weakness, fever, dyspnea, syncope, headache, dizziness, GI bleed, back pain, seizure, CVA, palpatations, mental health, musculoskeletal)? @ -prior EKG interpreted by me (3pts min.). @ -yes X-rays interpreted by me (1pt min.). @ -yes negative for acute disease CT interpreted by me (1pt min.). @ -no U/S interpreted by me (1pt. min.). @ -no What testing was considered but not performed or refused? (CT, X-rays, U/S, labs)? Why? @ -none What meds were considered but not given or refused? Why? @ -none Did you discuss the management of the patient with other professionals (professionals i.e. Dr., PA, BATCH DUMPER, lab, RT, psych nurse, social insurance administrator, administrative office assistant, teacher, audit officer, showcase trimmer)? Give summary @ -no Was smoking cessation discussed for >3mins.? @ -no Was critical care preformed (if so, how long)? @ -no Were there social determinants of health that impacted care today? How? (Homelessness, low income, unemployed, alcoholism, drug addiction, transpor tation, low edu. Level, literacy, decrease access to med. care, residential, rehab)? @ -none Was there de-escalation of care discussed even if they declined (Discuss DNR or withdrawal of care, Hospice)? DNR status @ -no What co-morbidities impacted this encounter? (DM, HTN, Smoking, COPD, CAD, Cancer, CVA, ARF, Chemo, Hep., AIDS, mental health diagnosis, sleep apnea, morbid obesity)? @ -none Was patient admitted / discharged? Hospital course, mention meds given and route, prescriptions, significant lab abnormalities, going to OR and other pertinent info. @ - Undiagnosed new problem with uncertain prognosis? @ -no Drug Therapy requiring intensive monitoring for toxicity (Heparin, Nitro, Insuli n, Cardizem)? @ -no Were any procedures done? @ -no Diagnosis/symptom? @ - Acute, or Chronic, or Acute on Chronic? @ -Acute Uncomplicated (without systemic symptoms) or Complicated (systemic symptoms)? @ -Complicated Side effects of treatment? @ -no Exacerbation, Progression, or Severe Exacerbation? @ -exacerbation Poses a threat to life or bodily function? How? (Chest pain, USA, MO, pneumonia, PE, COPD, DKA, ARF, appy, cholecystitis, CVA, Diverticulitis, Homicidal, Suicidal, threat to staff... and all critical care pts) @ -yes Reevaluation #5: Differential Weakness: Hypoglycemia, shock, sepsis, hyponatremia, anemia, infection, MO, ETOH, adverse medicine reaction, overdose, stroke, this is not meant to be an all-inclusive list. - Consultations Consultation #1: Spoke with ROSHAN hightower to admit Medical Decision Making - Medical Decision Making 44 male to the ER for evaluation patient does have uncontrolled blood sugars hyperglycemia here in the ER will admit for blood sugar control - Lab Data Result diagrams: 04/07/25 22:16 04/07/25 22:16 Lab Results 04/07/25 04/07/25 04/07/25 Range/Units 21:55 22:16 22:16 WBC 10.23 H (4.50-10.00) 10*3/uL RBC 5.32 (4.40-5.60) 10*6/uL Hgb 15.5 (13.0-17.0) g/dL Hct 45.2 (39.6-50.0) % MCV 85.0 (80.0-97.0) fL MCH 29.1 (27.0-32.0) pg MCHC 34.3 (32.0-37.0) g/dL Plt Count 316 (140-440) 10*3/uL MPV 11.0 (9.5-12.2) fL Immature Gran % (Auto) 0.4 % Neutrophils % 54.3 % Lymphocytes % 35.0 % Monocytes % 8.3 % Eosinophils % 1.0 % Basophils % 1.0 % Immature Gran # 0.04 (0.00-0.04) 10*3/uL Neutrophils # 5.56 (1.80-7.70) 10*3/uL Lymphocytes # 3.58 (0.90-5.00) 10*3/uL Monocytes # 0.85 (0.20-1.00) 10*3/uL Eosinophils # 0.10 (0.04-0.35) 10*3/uL Basophils # 0.10 (0.00-0.10) 10*3/uL Sodium 136 L (137-145) mmol/L Potassium 4.0 (3.5-5.1) mmol/L Chloride 97 L (98-107) mmol/L Carbon Dioxide 23 (22-30) mmol/L Anion Gap 16 mmol/L BUN 21 H (9-20) mg/dL Creatinine 1.19 (0.66-1.25) mg/dL Est GFR (CKD-EPI)AfAm 84 (>60 ml/min/1.73 sqM) Est GFR (CKD-EPI)NonAf 73 (>60 ml/min/1.73 sqM) Glucose 389 H (74-99) mg/dL POC Glucose (mg/dL) 364 H (70-110) mg/dL POC Glu Photoengraving Etcher ID Loyd Zhaoa Calcium 10.0 (8.4-10.2) mg/dL Phosphorus 3.5 (2.5-4.5) mg/dL Magnesium 2.2 (1.6-2.3) mg/dL Total Bilirubin 1.9 H (0.2-1.3) mg/dL AST 19 (17-59) U/L ALT 18 (4-49) U/L Alkaline Phosphatase 87 (38-126) U/L Troponin I (0.000-0.034) ng/mL Total Protein 8.0 (6.3-8.2) g/dL Albumin 4.7 (3.5-5.0) g/dL Serum Alcohol <10 mg/dL Acetone, Qual Negative (Negative) 04/07/25 Range/Units 22:16 WBC (4.50-10.00) 10*3/uL RBC (4.40-5.60) 10*6/uL Hgb (13.0-17.0) g/dL Hct (39.6-50.0) % MCV (80.0-97.0) fL MCH (27.0-32.0) pg MCHC (32.0-37.0) g/dL Plt Count (140-440) 10*3/uL MPV (9.5-12.2) fL Immature Gran % (Auto) % Neutrophils % % Lymphocytes % % Monocytes % % Eosinophils % % Basophils % % Immature Gran # (0.00-0.04) 10*3/uL Neutrophils # (1.80-7.70) 10*3/uL Lymphocytes # (0.90-5.00) 10*3/uL Monocytes # (0.20-1.00) 10*3/uL Eosinophils # (0.04-0.35) 10*3/uL Basophils # (0.00-0.10) 10*3/uL Sodium (137-145) mmol/L Potassium (3.5-5.1) mmol/L Chloride (98-107) mmol/L Carbon Dioxide (22-30) mmol/L Anion Gap mmol/L BUN (9-20) mg/dL Creatinine (0.66-1.25) mg/dL Est GFR (CKD-EPI)AfAm (>60 ml/min/1.73 sqM) Est GFR (CKD-EPI)NonAf (>60 ml/min/1.73 sqM) Glucose (74-99) mg/dL POC Glucose (mg/dL) (70-110) mg/dL POC Glu Photoengraving Etcher ID Calcium (8.4-10.2) mg/dL Phosphorus (2.5-4.5) mg/dL Magnesium (1.6-2.3) mg/dL Total Bilirubin (0.2-1.3) mg/dL AST (17-59) U/L ALT (4-49) U/L Alkaline Phosphatase (38-126) U/L Troponin I <0.012 (0.000-0.034) ng/mL Total Protein (6.3-8.2) g/dL Albumin (3.5-5.0) g/dL Serum Alcohol mg/dL Acetone, Qual (Negative) Disposition Clinical Impression: Dehydration, Depression, Hyperglycemia, Homelessness Disposition: ADMITTED IP TO THIS HOSP Condition: Fair Is patient prescribed a controlled substance at d/c from ED?: No Referrals: None,Stated [Primary Care Provider] - 1-2 days Time of Disposition: 23:55
[2025-04-07 22:30] LABS: HCT 45.2 % (39.6-50.0); HGB 15.5 g/dL (13.0-17.0); Lymphocytes # (A) 3.58 10*3/uL (0.90-5.00); MCH 29.1 pg (27.0-32.0); MCHC 34.3 g/dL (32.0-37.0); Monocytes # (A) 0.85 10*3/uL (0.20-1.00); Monocytes % (A) 8.3 %; Neutrophils # (A) 5.56 10*3/uL (1.80-7.70); Neutrophils % (A) 54.3 %; Platelet Count 316 10*3/uL (140-440); RBC 5.32 10*6/uL (4.40-5.60); RDW 12.8 % (11.5-14.5); WBC 10.23 10*3/uL (4.50-10.00)
[2025-04-07] MEDS: SODIUM CHLORIDE 0.9% 1,000 ML IV SCH (22:34)
[2025-04-07 23:09] LABS: ALT 18 U/L (4-49); AST 19 U/L (17-59); African American GFR (CKD) 84 (>60 ml/min/1.73 sqM); Albumin 4.7 g/dL (3.5-5.0); Alcohol <10 mg/dL; Alkaline Phosphatase 87 U/L (38-126); Anion Gap 16 mmol/L; Blood Urea Nitrogen 21 mg/dL (9-20); Carbon Dioxide 23 mmol/L (22-30); Chloride 97 mmol/L (98-107); Glucose 389 mg/dL (74-99); Magnesium 2.2 mg/dL (1.6-2.3); Non-African American GFR(CKD) 73 (>60 ml/min/1.73 sqM); Phosphorus 3.5 mg/dL (2.5-4.5); Sodium 136 mmol/L (137-145); Total Bilirubin 1.9 mg/dL (0.2-1.3)
[2025-04-08] MEDS ORDERED: NALOXONE 0.4 MG/ML 1 ML VIAL IV PRN (00:03)
[2025-04-08] MEDS ORDERED: ONDANSETRON 4 MG/2 ML VIAL IVP PRN (00:03)
[2025-04-08 00:21] LABS: Appearance,Urine Clear (Clear); Bilirubin,Urine Negative (Negative); Blood,Urine Negative (Negative); Color,Urine Light Yellow; Glucose,Urine (UA) 4+ (Negative); Ketones,Urine Trace (Negative); Leukocyte Esterase,Urine Negative (Negative); Nitrite,Urine Negative (Negative); PH, Urine 5.5 (5.0-8.0); Protein,Urine Negative (Negative); Specific Gravity,Urine 1.025 (1.001-1.035); Urobilinogen,Urine <2.0 mg/dL (<2.0)
[2025-04-08] MEDS: SODIUM CHLORIDE 0.9% 1,000 ML IV SCH (01:25)
[2025-04-08] MEDS: QUEtiapine 50 MG TAB PO SCH ×2 (01:46→22:09)
[2025-04-08 06:37] LABS: Glucose,Whole Blood 236 mg/dL (70-110)
[2025-04-08] MEDS: INSULIN LISPRO (HumaLOG) 100 UNIT/ML 10 mL VL SQ SCH ×2 (06:54→12:42)
[2025-04-08] MEDS: FLUoxetine HCL 20 MG CAP PO SCH (08:03)
[2025-04-08] MEDS ORDERED: FLUoxetine HCL 20 MG CAP PO SCH (11:00)
[2025-04-08 12:25] LABS: Influenza A Not Detected (Not Detectd); Influenza B Not Detected (Not Detectd); RSV Not Detected (Not Detectd)
[2025-04-08 12:27] LABS: Glucose,Whole Blood 320 mg/dL (70-110)
--- NOTE | 2025-04-08 15:24 | HP ---
HISTORY AND PHYSICAL CHIEF COMPLAINT: Dizziness, confusion, hyperglycemia, and weakness. HISTORY OF PRESENT ILLNESS: This 44-year-old gentleman with a past medical history of multiple medical problems including diabetes mellitus, had multiple symptomatology. The patient apparently does not have access to insulin and complaining of dizziness, weakness, anxiety, and was admitted for further evaluation and treatment. The patient had DKA previously. The blood sugar is mildly elevated at 364 without any evidence of DKA at this time. There is no history of fever, rigors, or chills at this time. PAST MEDICAL HISTORY: Diabetes mellitus type 2, history of MRSA, and history of BKA, and DKA. Rest of the chart and rest of his history is also reviewed. HOME MEDICATIONS: Seroquel, dose and rest of medications reviewed. ALLERGIES: None. FAMILY HISTORY: CAD. SOCIAL HISTORY: Previous history of smoking, THC. REVIEW OF SYSTEMS: A 14-point review of systems negative except as mentioned earlier. PHYSICAL EXAMINATION: VITAL SIGNS: Pulse 79, blood pressure 140/90, and respirations 18. CHEST: Clear to auscultation. CARDIOVASCULAR: S1 and S2. ABDOMEN: Soft, nontender. NERVOUS SYSTEM: No focal deficit. LABORATORY DATA: Reviewed. ASSESSMENT: 1. Uncontrolled diabetes mellitus and hyperglycemia. 2. History of apparent noncompliance. 3. History of diabetic ketoacidosis. 4. History of below-knee amputation. 5. Social issues. 6. History of degenerative joint disease. RECOMMENDATIONS AND DISCUSSION: This 44-year-old gentleman presented with multiple complex medical issues. We will monitor the patient closely. We recommend initiate insulin. Social Work consultation and cardiac consultation for evaluation of depression, stress and other issues. Resume home medications. Prognosis guarded, because of multiple complex medical issues. Further recommendations to follow. We also recommend viral testing also. MMODL / IJN: [id number] /
[2025-04-08 16:35] LABS: Glucose,Whole Blood 389 mg/dL (70-110)
[2025-04-08 20:26] LABS: Glucose,Whole Blood 320 mg/dL (70-110)
[2025-04-08] MEDS: INSULIN GLARGINE (LANTUS) 100 UNIT/ML SYR SQ SCH (20:52)
[2025-04-08] MEDS: HEPARIN SODIUM,PORCINE 5,000 UNIT/ML 1 ML VIAL SQ SCH (20:52)
[2025-04-09 06:11] LABS: Glucose,Whole Blood 140 mg/dL (70-110)
[2025-04-09] MEDS: PANTOPRAZOLE 40 MG TABLET PO SCH (06:17)
[2025-04-09 07:17] LABS: Basophils # (A) 0.11 10*3/uL (0.00-0.10); Basophils % (A) 1.5 %; Eosinophils # (A) 0.36 10*3/uL (0.04-0.35); Eosinophils % (A) 4.8 %; HCT 39.4 % (39.6-50.0); HGB 13.2 g/dL (13.0-17.0); Lymphocytes # (A) 3.79 10*3/uL (0.90-5.00); Lymphocytes % (A) 50.7 %; MCH 28.8 pg (27.0-32.0); MCHC 33.5 g/dL (32.0-37.0); Mean Platelet Volume 10.4 fL (9.5-12.2); Monocytes # (A) 0.56 10*3/uL (0.20-1.00); Monocytes % (A) 7.5 %; Neutrophils # (A) 2.61 10*3/uL (1.80-7.70); Platelet Count 267 10*3/uL (140-440); RBC 4.58 10*6/uL (4.40-5.60); WBC 7.47 10*3/uL (4.50-10.00)
[2025-04-09 07:27] LABS: ALT 15 U/L (4-49); AST 16 U/L (17-59); African American GFR (CKD) >90 (>60 ml/min/1.73 sqM); Albumin 3.6 g/dL (3.5-5.0); Alkaline Phosphatase 70 U/L (38-126); Anion Gap 11 mmol/L; Blood Urea Nitrogen 16 mg/dL (9-20); Calcium 9.6 mg/dL (8.4-10.2); Carbon Dioxide 26 mmol/L (22-30); Chloride 105 mmol/L (98-107); Glucose 136 mg/dL (74-99); Magnesium 2.2 mg/dL (1.6-2.3); Non-African American GFR(CKD) >90 (>60 ml/min/1.73 sqM); Potassium 3.8 mmol/L (3.5-5.1); Sodium 142 mmol/L (137-145); Total Bilirubin 1.1 mg/dL (0.2-1.3); Total Protein 6.5 g/dL (6.3-8.2)
[2025-04-09 09:15] VITALS: BP 133/85; PULSE 82; TEMP 98
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
[2025-04-09 11:06] VITALS: RESP 18
[2025-04-09 11:37] LABS: Glucose,Whole Blood 204 mg/dL (70-110)
== END 2025-04-09 15:19 | disposition home or self-care (01) ==
LOC: EC 21:38 → 6NMEDSUR 04-08 00:03 → 1SOBS 04-08 03:18
PROVIDERS: ADMIT Hospitalist; ATTEND Hospitalist
DX: E10.65 Type 1 diabetes mellitus with hyperglycemia (principal); E86.0 Dehydration; F43.21 Adjustment disorder with depressed mood; H54.7 Unspecified visual loss; M19.90 Unspecified osteoarthritis, unspecified site; F41.9 Anxiety disorder, unspecified; Z59.00 Homelessness unspecified; Z79.4 Long term (current) use of insulin; Z79.899 Other long term (current) drug therapy; Z87.891 Personal history of nicotine dependence; Z89.511 Acquired absence of right leg below knee; Z91.199 Patient's noncompliance with other medical treatment and regimen due to unspecified reason; Z86.19 Personal history of other infectious and parasitic diseases
CPT/HCPCS: 96372 ×2; 96360; 96361; 99285; 36415; 97161; 97166; 80053 ×2; 82009; 83735 ×2; 84100 ×2; 84484; 85025 ×2; 81003; 80320; 87636; G0378 ×3; J1644 ×2

== ENCOUNTER 2025-04-19 19:57 | Inpatient (IN) | payer MEDICARE, OTHER ==
[2025-04-19 20:01] LABS: Glucose,Whole Blood >600 mg/dL (70-110)
--- NOTE | 2025-04-19 20:39 | ED ---
General Adult HPI - General Chief complaint: Recheck/Abnormal Lab/Rx Stated complaint: AMS Time Seen by Provider: 04/19/25 20:08 Source: patient Mode of arrival: ambulatory Limitations: altered mental status (Patient appears mildly delirious) - History of Present Illness Initial comments: This patient is 45-year-old man with history of diabetes who is brought to have evaluation for elevated blood sugar. When I interviewed the patient, he does appear somewhat delirious and states that I just do not feel well. He is not able to give much additional history. He is able to answer simple direct questions he denies pain, dyspnea. -: unknown Severity scale (1-10): 0 Consistency: constant Improves with: none Worsens with: none Associated Symptoms: denies other symptoms - Related Data Previous Rx's Medication Instructions Recorded FLUoxetine HCL [PROzac] 20 mg PO DAILY #30 cap 04/22/25 Insulin Aspart [NovoLOG Flexpen] See Protocol SQ AC-TID #15 ml 04/22/25 Insulin Glargine,Hum.rec.anlog 25 units SQ HS 30 Days #15 ml 04/22/25 [Lantus Solostar Pen] traZODone HCL [Desyrel] 50 mg PO HS PRN #30 tab 04/22/25 INSULIN LISPRO (HumaLOG) [HumaLOG] 4 unit SQ AC-TID #15 ml 04/23/25 Allergies Allergy/AdvReac Type Severity Reaction Status Date / Time No Known Allergies Allergy Verified 04/20/25 11:59 Review of Systems ROS Statement: Those systems with pertinent positive or pertinent negative responses have been documented in the HPI. ROS Other: All systems not noted in ROS Statement are negative. Constitutional: Denies: fever Respiratory: Denies: cough, dyspnea Cardiovascular: Denies: chest pain Gastrointestinal: Reports: nausea. 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 Past Anesthesia/Blood Transfusion Reactions: Previous Problems w/ Anesthesia Additional Past Anesthesia/Blood Transfusion Reaction / Comment(s): "lost sight when he woke up from anesthesia during hip surgery" Past Psychological History: No Psychological Hx Reported Smoking Status: Former smoker Past Alcohol Use History: Rare Past Drug Use History: Marijuana - Past Family History Mother Family Medical History: Coronary Artery Disease (CAD) General Exam Limitations: no limitations General appearance: alert, in no apparent distress Head exam: Present: atraumatic, normocephalic Eye exam: Present: normal appearance. Absent: scleral icterus, conjunctival injection ENT exam: Present: mucous membranes dry Neck exam: Present: normal inspection, full ROM Respiratory exam: Present: normal lung sounds bilaterally. Absent: respiratory distress, wheezes, rales, rhonchi, stridor, accessory muscle use Cardiovascular Exam: Present: regular rate, normal rhythm, normal heart sounds. Absent: systolic murmur, diastolic murmur, rubs, gallop GI/Abdominal exam: Present: soft. Absent: distended, tenderness, guarding, rebound, rigid, mass Extremities exam: Present: normal inspection, normal capillary refill. Absent: pedal edema, calf tenderness Back exam: Present: normal inspection. Absent: CVA tenderness (R), CVA tenderness (L) Neurological exam: Present: alert, CN II-XII intact. Absent: oriented X3, motor sensory deficit Skin exam: Present: warm, dry, intact, normal color. Absent: rash Course Vital Signs 04/19/25 04/19/25 04/19/25 19:59 20:00 21:48 Temperature 97.8 F Pulse Rate 104 H 95 Pulse Rate [ 104 H Machinist Helper ] Respiratory 18 19 Rate Blood Pressure 185/109 139/87 Blood Pressure [Left Arm] O2 Sat by Pulse 95 93 L Oximetry 04/19/25 04/20/25 04/20/25 23:59 01:00 02:00 Temperature Pulse Rate 88 80 78 Pulse Rate [ Machinist Helper ] Respiratory 18 18 18 Rate Blood Pressure 124/80 94/58 122/70 Blood Pressure [Left Arm] O2 Sat by Pulse 98 97 Oximetry 04/20/25 04/20/25 04/20/25 03:00 05:08 06:00 Temperature Pulse Rate 76 82 76 Pulse Rate [ Machinist Helper ] Respiratory 18 16 16 Rate Blood Pressure 108/71 152/95 144/92 Blood Pressure [Left Arm] O2 Sat by Pulse 94 L 97 96 Oximetry 04/20/25 04/20/25 04/20/25 08:00 10:00 11:58 Temperature Pulse Rate 80 85 89 Pulse Rate [ Machinist Helper ] Respiratory 18 18 16 Rate Blood Pressure 162/103 144/84 113/81 Blood Pressure [Left Arm] O2 Sat by Pulse 97 97 98 Oximetry 04/20/25 04/20/25 04/21/25 16:00 20:00 00:00 Temperature 98.8 F 98.1 F 98.0 F Pulse Rate Pulse Rate [ 84 84 88 Machinist Helper ] Respiratory 16 19 18 Rate Blood Pressure Blood Pressure 120/81 103/74 120/65 [Left Arm] O2 Sat by Pulse 98 98 96 Oximetry 04/21/25 04/21/25 04/21/25 04:00 07:48 11:56 Temperature 98.2 F Pulse Rate 90 Pulse Rate [ 81 Machinist Helper ] Respiratory 19 18 Rate Blood Pressure 140/89 144/89 Blood Pressure 82/59 [Left Arm] O2 Sat by Pulse 97 100 Oximetry 04/21/25 04/21/25 19:33 21:18 Temperature 97.6 F Pulse Rate 94 94 Pulse Rate [ Machinist Helper ] Respiratory 18 18 Rate Blood Pressure 151/95 168/10 Blood Pressure [Left Arm] O2 Sat by Pulse 96 96 Oximetry EKG Findings - EKG Results: EKG: interpreted by ERMD, sinus rhythm, normal axis, normal QRS EKG shows: tachycardia (Rate 102 bpm) - Blocks, [place], Hypertrophy, ST Abn: Repolarization changes or abnormalities: nonspecific abnormality, ST segment, and/or T wave Medical Decision Making - Medical Decision Making Was pt. sent in by a medical professional or institution (, PA, DRY CLEANING TEACHER, urgent care, hospital, or senior care...) When possible be specific @ -[No] Did you speak to anyone other than the patient for history (EMS, parent, family, police, friend...)? What history was obtained from this source @ -[No] Did you review nursing and triage notes (agree or disagree)? Why? @ -[I reviewed and agree with nursing and triage notes] Were old charts reviewed (outside hosp., previous admission, EMS record, old EKG, old radiological studies, urgent care reports/EKG's, senior care records)? Report findings @ -[No old charts were reviewed] Differential Diagnosis (chest pain, altered mental status, abdominal pain women, abdominal pain men, vaginal bleeding, weakness, fever, dyspnea, syncope, headache, dizziness, GI bleed, back pain, seizure, CVA, palpatations, mental health, musculoskeletal)? @ -[Differential Altered Mental Status: Hypoglycemia, DKA, hypercapnia, ETOH, overdose, CO poisoning, trauma, myxedema coma, HTN encephalopathy, infection, encephalitis, psychosis, intercranial hemorrhage, hepatic encephalopathy, meningitis, CVA, this is not meant to be an all-inclusive list EKG interpreted by me (3pts min.). @ -[I interpreted as above] X-rays interpreted by me (1pt min.). @ -[None done] CT interpreted by me (1pt min.). @ -[None done] U/S interpreted by me (1pt. min.). @ -[None done] What testing was considered but not performed or refused? (CT, X-rays, U/S, labs)? Why? @ -[None] What meds were considered but not given or refused? Why? @ -[None] Did you discuss the management of the patient with other professionals (professionals i.e. , PA, DRY CLEANING TEACHER, lab, RT, psych nurse, social sciences department chair, fuse spooler, teacher, campus safety officer, human services case manager)? Give summary @ -[No] Was smoking cessation discussed for >3mins.? @ -[No] Was critical care preformed (if so, how long)? @ -[Yes, 35 minutes Were there social determinants of health that impacted care today? How? (Homelessness, low income, unemployed, alcoholism, drug addiction, transportation, low edu. Level, literacy, decrease access to med. care, half-way, rehab)? @ -[Homeless patient Was there de-escalation of care discussed even if they declined (Discuss DNR or withdrawal of care, Hospice)? DNR status @ -[No] What co-morbidities impacted this encounter? (DM, HTN, Smoking, COPD, CAD, Cancer, CVA, ARF, Chemo, Hep., AIDS, mental health diagnosis, sleep apnea, morbid obesity)? @ -[Diabetes Was patient admitted / discharged? Hospital course, mention meds given and route, prescriptions, significant lab abnormalities, going to OR and other pertinent info. @ -[Patient is 45-year-old man who is here related to elevated blood sugar. The patient does appear to have some element of acute delirium as well. The workup does reveal mild DKA, patient started on insulin, fluids, admitted for further treatment Undiagnosed new problem with uncertain prognosis? @ -[No] Drug Therapy requiring intensive monitoring for toxicity (Heparin, Nitro, Insulin, Cardizem)? @ -[No] Were any procedures done? @ -[No] Diagnosis/symptom? @ -[Acute DKA Acute delirium Acute, or Chronic, or Acute on Chronic? @ -[Acute Uncomplicated (without systemic symptoms) or Complicated (systemic symptoms)? @ -[Complicated by delirium Side effects of treatment? @ -[No] Exacerbation, Progression, or Severe Exacerbation? @ -[No] Poses a threat to life or bodily function? How? (Chest pain, USA, ID, pneumonia, PE, COPD, DKA, ARF, appy, cholecystitis, CVA, Diverticulitis, Homicidal, Suicidal, threat to staff... and all critical care pts) @ -[Yes there is significant risk associated with DKA All treatments are based on ideal body weight as in ED triage - Lab Data Result diagrams: 04/21/25 06:36 04/21/25 06:36 Lab Results 04/19/25 04/19/25 04/19/25 Range/Units 20:00 20:37 20:37 WBC 8.47 (4.50-10.00) 10*3/uL RBC 4.83 (4.40-5.60) 10*6/uL Hgb 14.1 (13.0-17.0) g/dL Hct 40.8 (39.6-50.0) % MCV 84.5 (80.0-97.0) fL MCH 29.2 (27.0-32.0) pg MCHC 34.6 (32.0-37.0) g/dL Plt Count 287 (140-440) 10*3/uL MPV 11.6 (9.5-12.2) fL Immature Gran % (Auto) 0.5 % Neutrophils % 72.3 % Lymphocytes % 18.2 % Monocytes % 6.8 % Eosinophils % 1.1 % Basophils % 1.1 % Immature Gran # 0.04 (0.00-0.04) 10*3/uL Neutrophils # 6.13 (1.80-7.70) 10*3/uL Lymphocytes # 1.54 (0.90-5.00) 10*3/uL Monocytes # 0.58 (0.20-1.00) 10*3/uL Eosinophils # 0.09 (0.04-0.35) 10*3/uL Basophils # 0.09 (0.00-0.10) 10*3/uL Sodium 129 L (137-145) mmol/L Potassium 5.4 H (3.5-5.1) mmol/L Chloride 92 L (98-107) mmol/L Carbon Dioxide 22 (22-30) mmol/L Anion Gap 15 mmol/L BUN 37 H (9-20) mg/dL Creatinine 1.06 (0.66-1.25) mg/dL Est GFR (CKD-EPI)AfAm >90 (>60 ml/min/1.73 sqM) Est GFR (CKD-EPI)NonAf 84 (>60 ml/min/1.73 sqM) Glucose 671 H* (74-99) mg/dL POC Glucose (mg/dL) >600 H* (70-110) mg/dL POC Glu Pensionholder Information Clerk ID Burgess Pederson Plasma Lactic Acid Bryan (0.7-2.0) mmol/L Calcium 9.8 (8.4-10.2) mg/dL Magnesium 2.2 (1.6-2.3) mg/dL Total Bilirubin 1.3 (0.2-1.3) mg/dL AST 15 L (17-59) U/L ALT 13 (4-49) U/L Alkaline Phosphatase 111 (38-126) U/L Troponin I (0.000-0.034) ng/mL Total Protein 7.3 (6.3-8.2) g/dL Albumin 4.4 (3.5-5.0) g/dL Urine Color Urine Appearance (Clear) Urine pH (5.0-8.0) Ur Specific [place] (1.001-1.035) Urine Protein (Negative) Urine Glucose (UA) (Negative) Urine Ketones (Negative) Urine Blood (Negative) Urine Nitrite (Negative) Urine Bilirubin (Negative) Urine Urobilinogen (<2.0) mg/dL Ur Leukocyte Esterase (Negative) Serum Alcohol <10 mg/dL Acetone, Qual Positive (Negative) 04/19/25 04/19/25 04/19/25 Range/Units 20:37 20:37 21:25 WBC (4.50-10.00) 10*3/uL RBC (4.40-5.60) 10*6/uL Hgb (13.0-17.0) g/dL Hct (39.6-50.0) % MCV (80.0-97.0) fL MCH (27.0-32.0) pg MCHC (32.0-37.0) g/dL Plt Count (140-440) 10*3/uL MPV (9.5-12.2) fL Immature Gran % (Auto) % Neutrophils % % Lymphocytes % % Monocytes % % Eosinophils % % Basophils % % Immature Gran # (0.00-0.04) 10*3/uL Neutrophils # (1.80-7.70) 10*3/uL Lymphocytes # (0.90-5.00) 10*3/uL Monocytes # (0.20-1.00) 10*3/uL Eosinophils # (0.04-0.35) 10*3/uL Basophils # (0.00-0.10) 10*3/uL Sodium (137-145) mmol/L Potassium (3.5-5.1) mmol/L Chloride (98-107) mmol/L Carbon Dioxide (22-30) mmol/L Anion Gap mmol/L BUN (9-20) mg/dL Creatinine (0.66-1.25) mg/dL Est GFR (CKD-EPI)AfAm (>60 ml/min/1.73 sqM) Est GFR (CKD-EPI)NonAf (>60 ml/min/1.73 sqM) Glucose (74-99) mg/dL POC Glucose (mg/dL) (70-110) mg/dL POC Glu Pensionholder Information Clerk ID Plasma Lactic Acid Bryan 1.3 (0.7-2.0) mmol/L Calcium (8.4-10.2) mg/dL Magnesium (1.6-2.3) mg/dL Total Bilirubin (0.2-1.3) mg/dL AST (17-59) U/L ALT (4-49) U/L Alkaline Phosphatase (38-126) U/L Troponin I <0.012 (0.000-0.034) ng/mL Total Protein (6.3-8.2) g/dL Albumin (3.5-5.0) g/dL Urine Color Colorless Urine Appearance Clear (Clear) Urine pH 5.5 (5.0-8.0) Ur Specific [place] 1.027 (1.001-1.035) Urine Protein Negative (Negative) Urine Glucose (UA) 4+ H (Negative) Urine Ketones 1+ H (Negative) Urine Blood Negative (Negative) Urine Nitrite Negative (Negative) Urine Bilirubin Negative (Negative) Urine Urobilinogen <2.0 (<2.0) mg/dL Ur Leukocyte Esterase Negative (Negative) Serum Alcohol mg/dL Acetone, Qual (Negative) Disposition Clinical Impression: Diabetic ketoacidosis, Delirium Disposition: ADMITTED IP TO THIS HOSP Condition: Fair Is patient prescribed a controlled substance at d/c from ED?: No
[2025-04-19 20:45] LABS: Basophils # (A) 0.09 10*3/uL (0.00-0.10); Basophils % (A) 1.1 %; Eosinophils # (A) 0.09 10*3/uL (0.04-0.35); Eosinophils % (A) 1.1 %; HCT 40.8 % (39.6-50.0); HGB 14.1 g/dL (13.0-17.0); Lymphocytes # (A) 1.54 10*3/uL (0.90-5.00); Lymphocytes % (A) 18.2 %; MCH 29.2 pg (27.0-32.0); MCHC 34.6 g/dL (32.0-37.0); MCV 84.5 fL (80.0-97.0); Mean Platelet Volume 11.6 fL (9.5-12.2); Monocytes # (A) 0.58 10*3/uL (0.20-1.00); Monocytes % (A) 6.8 %; Neutrophils # (A) 6.13 10*3/uL (1.80-7.70); Neutrophils % (A) 72.3 %; Platelet Count 287 10*3/uL (140-440); RBC 4.83 10*6/uL (4.40-5.60); RDW 12.4 % (11.5-14.5); WBC 8.47 10*3/uL (4.50-10.00)
[2025-04-19 21:03] LABS: ALT 13 U/L (4-49); AST 15 U/L (17-59); African American GFR (CKD) >90 (>60 ml/min/1.73 sqM); Albumin 4.4 g/dL (3.5-5.0); Alcohol <10 mg/dL; Alkaline Phosphatase 111 U/L (38-126); Anion Gap 15 mmol/L; Blood Urea Nitrogen 37 mg/dL (9-20); Calcium 9.8 mg/dL (8.4-10.2); Carbon Dioxide 22 mmol/L (22-30); Chloride 92 mmol/L (98-107); Magnesium 2.2 mg/dL (1.6-2.3); Non-African American GFR(CKD) 84 (>60 ml/min/1.73 sqM); Potassium 5.4 mmol/L (3.5-5.1); Sodium 129 mmol/L (137-145); Total Bilirubin 1.3 mg/dL (0.2-1.3); Total Protein 7.3 g/dL (6.3-8.2)
[2025-04-19 21:22] LABS: Glucose 671 mg/dL (74-99)
[2025-04-19] MEDS: INSULIN REGULAR 100 UNIT/ML VIAL (IV) IV STA (21:39)
[2025-04-19] MEDS: SODIUM CHLORIDE 0.9% 1,000 ML IV ONE ×2 (21:40→22:30)
[2025-04-19 22:04] LABS: Appearance,Urine Clear (Clear); Bilirubin,Urine Negative (Negative); Blood,Urine Negative (Negative); Color,Urine Colorless; Glucose,Urine (UA) 4+ (Negative); Ketones,Urine 1+ (Negative); Leukocyte Esterase,Urine Negative (Negative); Nitrite,Urine Negative (Negative); PH, Urine 5.5 (5.0-8.0); Protein,Urine Negative (Negative); Specific Gravity,Urine 1.027 (1.001-1.035); Urobilinogen,Urine <2.0 mg/dL (<2.0)
[2025-04-19 22:29] LABS: Glucose,Whole Blood 325 mg/dL (70-110)
[2025-04-19] MEDS: INSULIN REGULAR 100 UNIT in SODIUM CHLORIDE 0.9% 100 ML IV SCH (22:37)
[2025-04-19 23:22] LABS: Glucose,Whole Blood 259 mg/dL (70-110)
[2025-04-19] MEDS: SODIUM CHLORIDE 0.9% 1,000 ML IV SCH (23:25)
[2025-04-19] MEDS: ACETAMINOPHEN TAB 325 MG TAB PO STA (23:43)
[2025-04-19] MEDS: D5-0.45% NACL WITH KCL 20MEQ/L 1,000 ML IV SCH (23:56)
[2025-04-20 00:15] LABS: Glucose,Whole Blood 142 mg/dL (70-110)
[2025-04-20 01:24] LABS: Glucose,Whole Blood 104 mg/dL (70-110)
[2025-04-20 02:16] LABS: African American GFR (CKD) >90 (>60 ml/min/1.73 sqM); Anion Gap 14 mmol/L; Blood Urea Nitrogen 35 mg/dL (9-20); Carbon Dioxide 24 mmol/L (22-30); Chloride 101 mmol/L (98-107); Glucose 141 mg/dL (74-99); Non-African American GFR(CKD) >90 (>60 ml/min/1.73 sqM); Potassium 3.9 mmol/L (3.5-5.1); Sodium 139 mmol/L (137-145)
[2025-04-20 03:23] LABS: Glucose,Whole Blood 164 mg/dL (70-110)
[2025-04-20 04:32] LABS: Glucose,Whole Blood 212 mg/dL (70-110)
[2025-04-20 05:20] LABS: Glucose,Whole Blood 197 mg/dL (70-110)
[2025-04-20 05:55] LABS: African American GFR (CKD) >90 (>60 ml/min/1.73 sqM); Anion Gap 12 mmol/L; Blood Urea Nitrogen 31 mg/dL (9-20); Carbon Dioxide 22 mmol/L (22-30); Chloride 102 mmol/L (98-107); Glucose 199 mg/dL (74-99); Non-African American GFR(CKD) >90 (>60 ml/min/1.73 sqM); Phosphorus 4.4 mg/dL (2.5-4.5); Potassium 4.3 mmol/L (3.5-5.1); Sodium 136 mmol/L (137-145)
[2025-04-20 06:32] LABS: Glucose,Whole Blood 230 mg/dL (70-110)
[2025-04-20 07:53] LABS: Glucose,Whole Blood 239 mg/dL (70-110)
[2025-04-20 08:40] LABS: Glucose,Whole Blood 306 mg/dL (70-110)
[2025-04-20 09:35] LABS: ALT 12 U/L (4-49); AST 14 U/L (17-59); African American GFR (CKD) >90 (>60 ml/min/1.73 sqM); Albumin 3.9 g/dL (3.5-5.0); Alkaline Phosphatase 85 U/L (38-126); Anion Gap 12 mmol/L; Blood Urea Nitrogen 26 mg/dL (9-20); Calcium 9.1 mg/dL (8.4-10.2); Carbon Dioxide 21 mmol/L (22-30); Chloride 104 mmol/L (98-107); Glucose 309 mg/dL (74-99); Non-African American GFR(CKD) >90 (>60 ml/min/1.73 sqM); Potassium 4.7 mmol/L (3.5-5.1); Sodium 137 mmol/L (137-145); Total Protein 6.6 g/dL (6.3-8.2)
[2025-04-20 09:39] LABS: Glucose,Whole Blood 307 mg/dL (70-110)
[2025-04-20 10:48] LABS: Glucose,Whole Blood 296 mg/dL (70-110)
[2025-04-20 11:52] LABS: Glucose,Whole Blood 272 mg/dL (70-110)
[2025-04-20] MEDS: FLUoxetine HCL 20 MG CAP PO SCH (11:54)
[2025-04-20 12:58] LABS: Glucose,Whole Blood 220 mg/dL (70-110)
[2025-04-20 13:39] LABS: ALT 12 U/L (4-49); AST 15 U/L (17-59); African American GFR (CKD) >90 (>60 ml/min/1.73 sqM); Albumin 3.9 g/dL (3.5-5.0); Alkaline Phosphatase 83 U/L (38-126); Anion Gap 11 mmol/L; Blood Urea Nitrogen 23 mg/dL (9-20); Calcium 9.7 mg/dL (8.4-10.2); Carbon Dioxide 26 mmol/L (22-30); Chloride 102 mmol/L (98-107); Glucose 217 mg/dL (74-99); Non-African American GFR(CKD) >90 (>60 ml/min/1.73 sqM); Potassium 4.5 mmol/L (3.5-5.1); Sodium 139 mmol/L (137-145); Total Bilirubin 1.3 mg/dL (0.2-1.3); Total Protein 6.8 g/dL (6.3-8.2)
[2025-04-20 14:35] LABS: Glucose,Whole Blood 190 mg/dL (70-110)
[2025-04-20 16:01] LABS: Glucose,Whole Blood 180 mg/dL (70-110)
[2025-04-20 16:35] LABS: African American GFR (CKD) >90 (>60 ml/min/1.73 sqM); Anion Gap 11 mmol/L; Blood Urea Nitrogen 20 mg/dL (9-20); Carbon Dioxide 24 mmol/L (22-30); Chloride 103 mmol/L (98-107); Glucose 187 mg/dL (74-99); Non-African American GFR(CKD) >90 (>60 ml/min/1.73 sqM); Potassium 4.4 mmol/L (3.5-5.1); Sodium 138 mmol/L (137-145)
[2025-04-20 17:02] LABS: Glucose,Whole Blood 179 mg/dL (70-110)
[2025-04-20 17:42] LABS: Glucose,Whole Blood 155 mg/dL (70-110)
--- NOTE | 2025-04-20 17:49 | P.HPIM ---
History of Present Illness H&P Date: 04/20/25 Chief Complaint: Elevated blood sugar 45-year-old man with history of diabetes who is brought to have evaluation for elevated blood sugar. When I interviewed the patient, he does appear somewhat delirious and states that I just do not feel well. He is not able to give much additional history. He is able to answer simple direct questions he denies pain, dyspnea. Patient presents frequently to ER with elevated blood sugars due to being homeless and not able to care for self and take medications as prescribed Blood work completed in ED reveals WBC of 8.47, hemoglobin of 14.1 and platelet count of 287, sodium 129, potassium 5.4, BUN/creatinine of 37/1.06, acetone is p ositive; blood glucose of 671 UA is positive for glucose and ketones - Patient was placed on IV insulin infusion and is admitted for further treatment Review of Systems ROS unobtainable: due to mental status Past Medical History Past Medical History: Diabetes Mellitus, Eye Disorder Additional Past Medical History / Comment(s): statutory blindness History of Any Multi-Drug Resistant Organisms: Unobtainable Date of last positivie culture/infection: 2021 MDRO Source:: right hand Past Surgical History: Joint Replacement Additional Past Surgical History / Comment(s): bilateral hip replacement, left leg: celeste, 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 Past Anesthesia/Blood Transfusion Reactions: Previous Problems w/ Anesthesia Additional Past Anesthesia/Blood Transfusion Reaction / Comment(s): "lost sight when he woke up from anesthesia during hip surgery" Past Psychological History: No Psychological Hx Reported Smoking Status: Former smoker Past Alcohol Use History: Rare Past Drug Use History: Marijuana - Past Family History Mother Family Medical History: Coronary Artery Disease (CAD) Medications and Allergies Home Medications Medication Instructions Recorded Confirmed Type FLUoxetine HCL [PROzac] 20 mg PO DAILY 04/08/25 04/20/25 History Insulin Aspart [NovoLOG Flexpen] See Protocol SQ AC-TID #5 each 04/09/25 04/20/25 Rx Insulin Glargine,Hum.rec.anlog 25 units SQ HS 30 Days #5 each 04/09/25 04/20/25 Rx [Lantus Solostar Pen] Allergies Allergy/AdvReac Type Severity Reaction Status Date / Time No Known Allergies Allergy Verified 04/20/25 11:59 Physical Exam Vitals: Vital Signs Temp Pulse Pulse Resp BP Pulse Ox 04/20/25 10:00 85 18 144/84 97 04/20/25 08:00 80 18 162/103 97 04/20/25 06:00 76 16 144/92 96 04/20/25 05:08 82 16 152/95 97 04/20/25 03:00 76 18 108/71 94 L 04/20/25 02:00 78 18 122/70 04/20/25 01:00 80 18 94/58 97 04/19/25 23:59 88 18 124/80 98 04/19/25 21:48 95 19 139/87 93 L 04/19/25 20:00 104 H 04/19/25 19:59 97.8 F 104 H 18 185/109 95 Intake and Output 04/19/25 04/20/25 04/20/25 22:59 06:59 14:59 Intake Total 20.924 8.128 Balance 20.924 8.128 Intake: Intake, IV Titration 20.924 8.128 Amount Insulin Regular 100 unit 20.924 8.128 In Sodium Chloride 0.9% 100 ml @ 0.1 UNITS/KG/HR 8.246 mls/hr IV .[id number] [facility] Rx#:[id number] Other: Weight 81.647 kg General appearance: alert, in no apparent distress Head exam: Present: atraumatic, normocephalic Eye exam: Present: normal appearance. Absent: scleral icterus, conjunctival injection ENT exam: Present: mucous membranes dry Neck exam: Present: normal inspection, full ROM Respiratory exam: Present: normal lung sounds bilaterally. Absent: respiratory distress, wheezes, rales, rhonchi, stridor, accessory muscle use Cardiovascular Exam: Present: regular rate, normal rhythm, normal heart sounds. Absent: systolic murmur, diastolic murmur, rubs, gallop GI/Abdominal exam: Present: soft. Absent: distended, tenderness, guarding, rebound, rigid, mass Extremities exam: Present: normal inspection, normal capillary refill. Absent: pedal edema, calf tenderness Back exam: Present: normal inspection. Absent: CVA tenderness (R), CVA tenderness (L) Neurological exam: Present: alert, CN II-XII intact. Absent: oriented X3, motor sensory deficit Skin exam: Present: warm, dry, intact, normal color. Absent: rash Results CBC & Chem 7: 04/19/25 20:37 04/20/25 16:06 Labs: Abnormal Lab Results - Last 24 Hours (Table) 04/19/25 04/19/25 04/19/25 Range/Units 20:00 20:37 21:25 Sodium 129 L (137-145) mmol/L Potassium 5.4 H (3.5-5.1) mmol/L Chloride 92 L (98-107) mmol/L Carbon Dioxide (22-30) mmol/L BUN 37 H (9-20) mg/dL Glucose 671 H* (74-99) mg/dL POC Glucose (mg/dL) >600 H* (70-110) mg/dL AST 15 L (17-59) U/L Urine Glucose (UA) 4+ H (Negative) Urine Ketones 1+ H (Negative) 04/19/25 04/19/25 04/20/25 Range/Units 22:27 23:20 00:14 Sodium (137-145) mmol/L Potassium (3.5-5.1) mmol/L Chloride (98-107) mmol/L Carbon Dioxide (22-30) mmol/L BUN (9-20) mg/dL Glucose (74-99) mg/dL POC Glucose (mg/dL) 325 H 259 H 142 H (70-110) mg/dL AST (17-59) U/L Urine Glucose (UA) (Negative) Urine Ketones (Negative) 04/20/25 04/20/25 04/20/25 Range/Units 00:28 03:21 04:30 Sodium (137-145) mmol/L Potassium (3.5-5.1) mmol/L Chloride (98-107) mmol/L Carbon Dioxide (22-30) mmol/L BUN 35 H (9-20) mg/dL Glucose 141 H (74-99) mg/dL POC Glucose (mg/dL) 164 H 212 H (70-110) mg/dL AST (17-59) U/L Urine Glucose (UA) (Negative) Urine Ketones (Negative) 04/20/25 04/20/25 04/20/25 Range/Units 05:04 05:19 06:31 Sodium 136 L (137-145) mmol/L Potassium (3.5-5.1) mmol/L Chloride (98-107) mmol/L Carbon Dioxide (22-30) mmol/L BUN 31 H (9-20) mg/dL Glucose 199 H (74-99) mg/dL POC Glucose (mg/dL) 197 H 230 H (70-110) mg/dL AST (17-59) U/L Urine Glucose (UA) (Negative) Urine Ketones (Negative) 04/20/25 04/20/25 04/20/25 Range/Units 07:51 08:38 08:43 Sodium (137-145) mmol/L Potassium (3.5-5.1) mmol/L Chloride (98-107) mmol/L Carbon Dioxide 21 L (22-30) mmol/L BUN 26 H (9-20) mg/dL Glucose 309 H (74-99) mg/dL POC Glucose (mg/dL) 239 H 306 H (70-110) mg/dL AST 14 L (17-59) U/L Urine Glucose (UA) (Negative) Urine Ketones (Negative) 04/20/25 Range/Units 09:37 Sodium (137-145) mmol/L Potassium (3.5-5.1) mmol/L Chloride (98-107) mmol/L Carbon Dioxide (22-30) mmol/L BUN (9-20) mg/dL Glucose (74-99) mg/dL POC Glucose (mg/dL) 307 H (70-110) mg/dL AST (17-59) U/L Urine Glucose (UA) (Negative) Urine Ketones (Negative) Assessment and Plan Assessment: 1. Elevated blood glucose/DKA -Blood glucose above 600 upon arrival to ED; patient was found to be confused and delirious; blood and urine acetones are positive - Patient has been placed on IV insulin infusion; will monitor electrolytes and renal function - IV fluids normal saline at a rate of 150 cc an hour; can be changed to dextrose containing fluid if patient continues to require IV insulin - Continue to monitor renal function electrolytes 2. Hyponatremia; likely related to markedly elevated blood glucose - Patient has been placed on normal saline; monitor electrolytes every 4 hours; make adjustments as needed 3. Acute renal injury/dehydration; continue with fluids as indicated above 4. Hyperkalemia; likely associated with DKA; hold off any; monitor electrolytes 5. Diabetes mellitus type 1 with long-term insulin use; we will transition to home dose of insulin glargine once DKA is resolved 6. Depression; Prozac 20 mg daily DVT prophylaxis; SCDs CODE STATUS; full code
[2025-04-20 18:30] LABS: Glucose,Whole Blood 131 mg/dL (70-110)
[2025-04-20 20:19] LABS: Glucose,Whole Blood 103 mg/dL (70-110)
[2025-04-20 20:50] LABS: African American GFR (CKD) >90 (>60 ml/min/1.73 sqM); Anion Gap 11 mmol/L; Blood Urea Nitrogen 17 mg/dL (9-20); Carbon Dioxide 23 mmol/L (22-30); Chloride 105 mmol/L (98-107); Glucose 101 mg/dL (74-99); Non-African American GFR(CKD) >90 (>60 ml/min/1.73 sqM); Potassium 4.4 mmol/L (3.5-5.1); Sodium 139 mmol/L (137-145)
[2025-04-20 21:19] LABS: Glucose,Whole Blood 138 mg/dL (70-110)
[2025-04-20 22:38] LABS: Glucose,Whole Blood 193 mg/dL (70-110)
[2025-04-20] MEDS: INSULIN GLARGINE (LANTUS) 100 UNIT/ML SYR SQ SCH (22:44)
[2025-04-20] MEDS: QUEtiapine 50 MG TAB PO SCH (22:44)
[2025-04-20 23:17] LABS: Glucose,Whole Blood 247 mg/dL (70-110)
[2025-04-21 00:26] LABS: Glucose,Whole Blood 307 mg/dL (70-110)
[2025-04-21 01:05] LABS: African American GFR (CKD) >90 (>60 ml/min/1.73 sqM); Anion Gap 10 mmol/L; Blood Urea Nitrogen 16 mg/dL (9-20); Calcium 9.4 mg/dL (8.4-10.2); Carbon Dioxide 23 mmol/L (22-30); Chloride 103 mmol/L (98-107); Glucose 315 mg/dL (74-99); Non-African American GFR(CKD) >90 (>60 ml/min/1.73 sqM); Potassium 4.6 mmol/L (3.5-5.1); Sodium 136 mmol/L (137-145)
[2025-04-21 01:17] LABS: Glucose,Whole Blood 324 mg/dL (70-110)
[2025-04-21 02:15] LABS: Glucose,Whole Blood 328 mg/dL (70-110)
[2025-04-21 03:31] LABS: Glucose,Whole Blood 339 mg/dL (70-110)
[2025-04-21 04:32] LABS: Glucose,Whole Blood 264 mg/dL (70-110)
[2025-04-21 05:33] LABS: Glucose,Whole Blood 172 mg/dL (70-110)
[2025-04-21 06:35] LABS: Glucose,Whole Blood 129 mg/dL (70-110)
[2025-04-21 07:21] LABS: Basophils # (A) 0.11 10*3/uL (0.00-0.10); Basophils % (A) 1.3 %; Eosinophils # (A) 0.18 10*3/uL (0.04-0.35); Eosinophils % (A) 2.2 %; HGB 11.9 g/dL (13.0-17.0); Lymphocytes # (A) 3.54 10*3/uL (0.90-5.00); Lymphocytes % (A) 42.5 %; MCH 29.1 pg (27.0-32.0); MCHC 33.1 g/dL (32.0-37.0); Mean Platelet Volume 11.2 fL (9.5-12.2); Monocytes # (A) 0.75 10*3/uL (0.20-1.00); Neutrophils # (A) 3.71 10*3/uL (1.80-7.70); Neutrophils % (A) 44.5 %; Platelet Count 254 10*3/uL (140-440); RBC 4.09 10*6/uL (4.40-5.60); RDW 12.9 % (11.5-14.5); WBC 8.33 10*3/uL (4.50-10.00)
[2025-04-21 07:32] LABS: African American GFR (CKD) >90 (>60 ml/min/1.73 sqM); Anion Gap 7 mmol/L; Blood Urea Nitrogen 18 mg/dL (9-20); Carbon Dioxide 23 mmol/L (22-30); Chloride 110 mmol/L (98-107); Glucose 132 mg/dL (74-99); Non-African American GFR(CKD) 87 (>60 ml/min/1.73 sqM); Potassium 4.5 mmol/L (3.5-5.1); Sodium 140 mmol/L (137-145)
[2025-04-21 07:42] LABS: Glucose,Whole Blood 90 mg/dL (70-110)
[2025-04-21 08:09] LABS: Glucose,Whole Blood 88 mg/dL (70-110)
[2025-04-21] MEDS ORDERED: DEXTROSE 50% SYRINGE 50 ML IVP PRN ×2 (08:20)
--- NOTE | 2025-04-21 08:35 | P.PN ---
Subjective 45-year-old man with history of diabetes who is brought to have evaluation for elevated blood sugar. When I interviewed the patient, he does appear somewhat delirious and states that I just do not feel well. He is not able to give much additional history. He is able to answer simple direct questions he denies pain, dyspnea. Patient presents frequently to ER with elevated blood sugars due to being homeless and not able to care for self and take medications as prescribed Blood work completed in ED reveals WBC of 8.47, hemoglobin of 14.1 and platelet count of 287, sodium 129, potassium 5.4, BUN/creatinine of 37/1.06, acetone is positive; blood glucose of 671 UA is positive for glucose and ketones - Patient was placed on IV insulin infusion and is admitted for further treatment 04/21 Patient awake alert. Complaining from not feeling well without specification when asking what exactly not feeling well he answers I do not know I asked him how much insulin he takes at home, he answers I do not know, also when I asked him why he was not taking his insulin he states I do not know he just does not feel well I did systemic review which were negative including no chest pain or dyspnea no coughing no specific GI/ symptoms no headache dizziness weakness or numbness. He is lying in bed. 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 No pain there. No other new complaint. Blood pressure 140/80. Last time earlier this morning he was discharged on Lantus 25 units at bedtime and 5 units with meal. He received 25 units last night. Patient was on insulin drip this morning and glucose was 90. Patient was feeling hungry and wants to eat. Insulin drip was stopped. Continue with insulin sliding scale. Discussed with staff given his history of depression we will also consult psych service for consult Review of systems CONSTITUTIONAL: No fever, no malaise, no fatigue. HEENT: No recent visual problems or hearing problems. Denied any sore throat. CARDIOVASCULAR: No orthopnea, PND, no palpitations, no syncope. PULMONARY: No shortness of breath, no cough, no hemoptysis. GASTROINTESTINAL: No diarrhea, no nausea, no vomiting, no abdominal pain. Normo active bowel sounds. NEUROLOGICAL: No headaches, no weakness, no numbness. HEMATOLOGICAL: Denies any bleeding or petechiae. GENITOURINARY: Denies any burning micturition, frequency, or urgency. MUSCULOSKELETAL/RHEUMATOLOGICAL: Denies any joint pain, swelling, or any muscle pain. ENDOCRINE: Denies any polyuria or polydipsia. Active Medications Generic Name Dose Route Start Last Admin Trade Name [place] PRN Reason Stop Dose Admin Dextrose/Water 25 ml 04/21/25 08:20 Dextrose 50% Syringe 50 Ml IVP PER PROTOCOL PRN Hypoglycemia Protocol Dextrose/Water 50 ml 04/21/25 08:20 Dextrose 50% Syringe 50 Ml IVP PER PROTOCOL PRN Hypoglycemia Protocol Fluoxetine HCl 20 mg 04/20/25 10:45 04/20/25 11:54 Fluoxetine Hcl 20 Mg Cap PO 20 mg DAILY TIN Administration Sodium Chloride 1,000 mls @ 200 mls/hr 04/19/25 22:15 04/21/25 04:24 Saline 0.9% IV Not Given .Q5H TIN Sodium Chloride 1,000 mls @ 500 mls/hr 04/19/25 22:06 04/19/25 22:30 Saline 0.9% IV 500 mls/hr .Q2H ONE Administration Insulin Glargine 25 unit 04/20/25 21:00 04/20/25 22:44 Insulin Glargine (Lantus) 100 Unit/Ml Syr SQ 25 unit HS TIN Administration Insulin Human Lispro 0 unit 04/21/25 12:30 Insulin Lispro (Humalog) 100 Unit/Ml 10 Ml Vl SQ ACHS TIN Protocol Quetiapine Fumarate 50 mg 04/20/25 21:00 04/20/25 22:44 Quetiapine 50 Mg Tab PO 50 mg HS TIN Administration Objective - Vital Signs Vital signs: Vital Signs Temp 98.2 F 04/21/25 04:00 Pulse 81 04/21/25 04:00 Resp 19 04/21/25 04:00 BP 140/89 04/21/25 07:48 Pulse Ox 97 04/21/25 04:00 FiO2 Intake & Output 04/20/25 04/21/25 04/21/25 18:59 06:59 18:59 Intake Total 368.371 3983.235 Balance 044.030 5084.235 Intake: Intake, IV Titration 132.145 2555.235 Amount D5-0.45% NaCl with KCl 900 1350 20Meq/l 1,000 ml @ 150 mls/hr IV .Q6H40M TIN Rx# :[id number] Insulin Regular 100 unit 42.831 115.235 In Sodium Chloride 0.9% 100 ml @ 0.1 UNITS/KG/HR 8.246 mls/hr IV .[id number] TIN Rx#:[id number] Oral 300 Other: # Voids 2 2 # Bowel Movements 1 - Exam GENERAL: The patient is alert and oriented x3, not in any acute distress. Well developed, well nourished. HEENT: Pupils are round and equally reacting to light. EOMI. No scleral icterus. No conjunctival pallor. Normocephalic, atraumatic. No pharyngeal erythema. No thyromegaly. CARDIOVASCULAR: S1 and S2 present. No murmurs, rubs, or gallops. PULMONARY: Chest is clear to auscultation, no wheezing , no crackles. ABDOMEN: Soft, nontender, nondistended, normoactive bowel sounds. No palpable organomegaly. MUSCULOSKELETAL: No joint swelling or deformity. -EXTREMITIES: No cyanosis, clubbing, or pedal edema. Right BKA NEUROLOGICAL: Gross neurological examination did not reveal any focal deficits. SKIN: No rashes. no petechiae. - Labs CBC & Chem 7: 04/21/25 06:36 04/21/25 06:36 Labs: Abnormal Lab Results - Last 24 Hours (Table) 04/20/25 04/20/25 04/20/25 Range/Units 08:38 08:43 09:37 RBC (4.40-5.60) 10*6/uL Hgb (13.0-17.0) g/dL Hct (39.6-50.0) % Basophils # (0.00-0.10) 10*3/uL Sodium (137-145) mmol/L Chloride (98-107) mmol/L Carbon Dioxide 21 L (22-30) mmol/L BUN 26 H (9-20) mg/dL Glucose 309 H (74-99) mg/dL POC Glucose (mg/dL) 306 H 307 H (70-110) mg/dL AST 14 L (17-59) U/L 04/20/25 04/20/25 04/20/25 Range/Units 10:47 11:50 12:49 RBC (4.40-5.60) 10*6/uL Hgb (13.0-17.0) g/dL Hct (39.6-50.0) % Basophils # (0.00-0.10) 10*3/uL Sodium (137-145) mmol/L Chloride (98-107) mmol/L Carbon Dioxide (22-30) mmol/L BUN 23 H (9-20) mg/dL Glucose 217 H (74-99) mg/dL POC Glucose (mg/dL) 296 H 272 H (70-110) mg/dL AST 15 L (17-59) U/L 04/20/25 04/20/25 04/20/25 Range/Units 12:57 14:33 15:50 RBC (4.40-5.60) 10*6/uL Hgb (13.0-17.0) g/dL Hct (39.6-50.0) % Basophils # (0.00-0.10) 10*3/uL Sodium (137-145) mmol/L Chloride (98-107) mmol/L Carbon Dioxide (22-30) mmol/L BUN (9-20) mg/dL Glucose (74-99) mg/dL POC Glucose (mg/dL) 220 H 190 H 180 H (70-110) mg/dL AST (17-59) U/L 04/20/25 04/20/25 04/20/25 Range/Units 16:06 17:01 17:41 RBC (4.40-5.60) 10*6/uL Hgb (13.0-17.0) g/dL Hct (39.6-50.0) % Basophils # (0.00-0.10) 10*3/uL Sodium (137-145) mmol/L Chloride (98-107) mmol/L Carbon Dioxide (22-30) mmol/L BUN (9-20) mg/dL Glucose 187 H (74-99) mg/dL POC Glucose (mg/dL) 179 H 155 H (70-110) mg/dL AST (17-59) U/L 04/20/25 04/20/25 04/20/25 Range/Units 18:28 19:57 21:13 RBC (4.40-5.60) 10*6/uL Hgb (13.0-17.0) g/dL Hct (39.6-50.0) % Basophils # (0.00-0.10) 10*3/uL Sodium (137-145) mmol/L Chloride (98-107) mmol/L Carbon Dioxide (22-30) mmol/L BUN (9-20) mg/dL Glucose 101 H (74-99) mg/dL POC Glucose (mg/dL) 131 H 138 H (70-110) mg/dL AST (17-59) U/L 04/20/25 04/20/25 04/20/25 Range/Units 22:27 23:15 23:45 RBC (4.40-5.60) 10*6/uL Hgb (13.0-17.0) g/dL Hct (39.6-50.0) % Basophils # (0.00-0.10) 10*3/uL Sodium 136 L (137-145) mmol/L Chloride (98-107) mmol/L Carbon Dioxide (22-30) mmol/L BUN (9-20) mg/dL Glucose 315 H (74-99) mg/dL POC Glucose (mg/dL) 193 H 247 H (70-110) mg/dL AST (17-59) U/L 04/21/25 04/21/25 04/21/25 Range/Units 00:16 01:05 02:13 RBC (4.40-5.60) 10*6/uL Hgb (13.0-17.0) g/dL Hct (39.6-50.0) % Basophils # (0.00-0.10) 10*3/uL Sodium (137-145) mmol/L Chloride (98-107) mmol/L Carbon Dioxide (22-30) mmol/L BUN (9-20) mg/dL Glucose (74-99) mg/dL POC Glucose (mg/dL) 307 H 324 H 328 H (70-110) mg/dL AST (17-59) U/L 04/21/25 04/21/25 04/21/25 Range/Units 03:29 04:28 05:31 RBC (4.40-5.60) 10*6/uL Hgb (13.0-17.0) g/dL Hct (39.6-50.0) % Basophils # (0.00-0.10) 10*3/uL Sodium (137-145) mmol/L Chloride (98-107) mmol/L Carbon Dioxide (22-30) mmol/L BUN (9-20) mg/dL Glucose (74-99) mg/dL POC Glucose (mg/dL) 339 H 264 H 172 H (70-110) mg/dL AST (17-59) U/L 04/21/25 04/21/25 04/21/25 Range/Units 06:34 06:36 06:36 RBC 4.09 L (4.40-5.60) 10*6/uL Hgb 11.9 L (13.0-17.0) g/dL Hct 36.0 L (39.6-50.0) % Basophils # 0.11 H (0.00-0.10) 10*3/uL Sodium (137-145) mmol/L Chloride 110 H (98-107) mmol/L Carbon Dioxide (22-30) mmol/L BUN (9-20) mg/dL Glucose 132 H (74-99) mg/dL POC Glucose (mg/dL) 129 H (70-110) mg/dL AST (17-59) U/L Assessment and Plan Assessment: 1. Elevated blood glucose/DKA, secondary to nonadherence to therapy. Patient could not verify -Blood glucose above 600 upon arrival to ED; patient was found to be confused and delirious; blood and urine acetones are positive - Patient has been placed on IV insulin infusion; will monitor electrolytes and renal function - IV fluids normal saline at a rate of 150 cc an hour; can be changed to dextrose containing fluid if patient continues to require IV insulin - Continue to monitor renal function electrolytes - Discontinue insulin drip. Continue with Lantus 25 units and insulin sliding scale 2. Hyponatremia; likely related to markedly elevated blood glucose - Patient has been placed on normal saline; monitor electrolytes every 4 hours; make adjustments as needed 3. Acute renal injury/dehydration; continue with fluids as indicated above. Resolved 4. Hyperkalemia; likely associated with DKA; hold off any; monitor electrolytes. Resolved 5. Diabetes mellitus type 1 with long-term insulin use; with hyperglycemia. We will transition to home dose of insulin glargine once DKA is resolved 6. Depression; Prozac 20 mg daily. Consult psych service DVT prophylaxis; SCDs CODE STATUS; full code
[2025-04-21 08:43] LABS: Glucose,Whole Blood 131 mg/dL (70-110)
[2025-04-21 11:36] LABS: Glucose,Whole Blood 212 mg/dL (70-110)
[2025-04-21] MEDS: INSULIN LISPRO (HumaLOG) 100 UNIT/ML 10 mL VL SQ SCH (11:56)
[2025-04-21] MEDS ORDERED: traZODone HCL 50 MG TAB PO PRN (13:30)
--- NOTE | 2025-04-21 13:37 | P.CN ---
Psychiatric Consult - . Consult date: 04/21/25 Consult:: 04/21/25 13:31 IDENTIFYING DATA: This patient is a 45-year-old male, living in a hotel and on SSD REASON FOR REFERRAL: Psychiatry was consulted for depression, nonadherence to therapy HISTORY OF PRESENT ILLNESS: The patient presented to the hospital with elevated blood sugars. Patient's blood glucose in the ED was 671 he was started on IV insulin infusion. Patient seen and evaluated in his room. He states not having a psychiatric history however due to his homelessness he made "a stupid comment" hoping to get more time here during a recent hospitalization that ultimately led him to getting transferred to an inpatient psychiatric facility in [place]. He states initially refusing medications which ultimately led him to become court ordered for mental health treatment. He claims to be adherent with his psychotropic medications however given his insurance issues he sometimes have difficulties filling the meds. 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 His goal is to live in a halfway if possible. Patient describes some stressors including his current filing "false domestic violence reports" with patient having a court date scheduled for today for this. He states his current is "off her walker" and given her new onset Parkinson's disease she is unstable mentally. He overall reports stability in terms of mood, denying any sleep difficulties. He was agreeable with trying an alternative medication for sleep as Seroquel can lead to worsening in his blood glucose. At this time patient denies any suicidal or homicidal ideations, intent or plan. Patient denies any auditory, visual hallucinations and denies any paranoia or delusions. Patients admits to using no substances. PAST PSYCHIATRIC HISTORY: Patient has a history of depression. He is currently prescribed Prozac 20 mg daily, Seroquel 50 mg at bedtime. He reports 1 previous inpatient hospitalization in [place]. Patient denies any psychiatric outpatient follow-up. Patient denies any history of suicide attempts in the past. PAST MEDICAL HISTORY: Diabetes. ALLERGIES: as per EMR. CHEMICAL DEPENDENCY HISTORY: as per HPI. FAMILY PSYCHIATRIC/SUBSTANCE USE HISTORY: Denies SOCIAL HISTORY: Patient is however from his and living alone in a hotel. He has 3 daughters. He is currently on SSD. He has current DV charges. MENTAL STATUS EXAM: General Appearance: Patient appears to be stated age is alert, pleasant, and cooperative. Patient appears to have poor hygiene and grooming wearing hospital gown with fair eye contact. Behavior: Patient is calmly lying in bed without any agitated behavior. Speech: Patient's speech is fluent and nonpressured. Mood/Affect: Patient reports their mood is "in pain", affect is congruent Suicidality/Homicidality: Patient denies having any suicidal or homicidal ideation intent or plan. Perceptions: Patient denies any visual hallucinations and denies any auditory hallucinations Though content/process: There is no evidence of any delusional thought content and thought process is linear and goal-directed. Memory and concentration: AOX3, grossly intact for the purposes of this session. Can spell "WORLD" backwards Judgment and insight: Poor IMPRESSIONS: History of depression PLAN: -At this time patient DOES NOT meet criteria for inpatient psychiatric admission. -Would recommend the following medication changes/additions: Continue Prozac 20 mg daily for depression, discontinue Seroquel 50 mg at bedtime given elevated blood glucose and start trazodone 50 mg as needed at bedtime for insomnia instead -merchandise worker to provide patient with outpatient mental health/psychiatry resources for appropriate follow up upon discharge -Psychiatry will sign off at this time -Please contact with any questions.
[2025-04-21 17:21] LABS: Glucose,Whole Blood 336 mg/dL (70-110)
[2025-04-21 21:11] LABS: Glucose,Whole Blood 331 mg/dL (70-110)
[2025-04-22 06:08] LABS: Glucose,Whole Blood 182 mg/dL (70-110)
[2025-04-22 11:46] LABS: Glucose,Whole Blood 273 mg/dL (70-110)
[2025-04-22 14:45] VITALS: BMI 31.8
[2025-04-22 17:08] LABS: Glucose,Whole Blood 318 mg/dL (70-110)
[2025-04-22] MEDS: ACETAMINOPHEN TAB 325 MG TAB PO PRN (17:12)
[2025-04-22 20:21] LABS: Glucose,Whole Blood 197 mg/dL (70-110)
[2025-04-23 06:06] LABS: Glucose,Whole Blood 199 mg/dL (70-110)
[2025-04-23] MEDS: INSULIN LISPRO (HumaLOG) 100 UNIT/ML 10 mL VL SQ SCH (06:22)
--- NOTE | 2025-04-23 06:30 | P.DS ---
Providers Date of admission: 04/19/25 22:07 Attending physician: Sherwin Vera Consults: 04/21/25 08:34 Consult Physician Routine Consulting Provider: Gregory Gonzales Consult Reason/Comments: depression , non adherent to therapy Do you want consulting provider notified?: Yes Primary care physician: Stated None Hospital Course: Diagnoses: 1. Elevated blood glucose/DKA, secondary to nonadherence to therapy. 2. Hyponatremia; likely related to markedly elevated blood glucose - Patient has been placed on normal saline; monitor electrolytes every 4 hours; make adjustments as needed 3. Acute renal injury/dehydration; continue with fluids as indicated above. Resolved 4. Hyperkalemia; likely associated with DKA; hold off any; monitor electrolytes. Resolved 5. Diabetes mellitus type 1 with long-term insulin use; with hyperglycemia. We will transition to home dose of insulin glargine once DKA is resolved 6. Depression; Prozac 20 mg daily. Consult psych service Hospital course: 45-year-old man with history of diabetes who is brought to have evaluation for elevated blood sugar. When I interviewed the patient, he does appear somewhat delirious and states that I just do not feel well. He is not able to give much additional history. He is able to answer simple direct questions he denies pain, dyspnea. Patient was treated with insulin drip per protocol for his DKA, his anion gap closed and is switched to his Lantus and short acting insulin with meals and sugar controlled. He denies any other complaint. Although he keeps saying not feeling well without specification. He is hemodynamically stable and labs reviewed and looks stable Patient agreeable to be discharged because of his blindness he needs help with his discharge plan, social sciences lecturer on the case for placement for him Problems and management plan were discussed with the patient and he verbalized understanding and acceptance Patient was found stable and can be discharged home in guarded prognosis however he needs follow-up as an outpatient. Patient was instructed to follow up with PCP within one week and patient agrees Patient instructed to follow-up with caramel cutter machine Dr. Cameron in 1 week after discharge Physical exam Gen: patient is a AAOx3, no distress CVS: S1-S2, RRR, no murmur Lungs: B/L CTA, no wheezing Abdomen: soft, no distention, no tenderness, positive bowel sounds Extremity: no leg edema or induration. Right BKA Time spent more than 35 minutes Patient Condition at Discharge: Fair Plan - Discharge Summary Discharge Rx Participant: No New Discharge Prescriptions: New traZODone HCL [Desyrel] 50 mg PO HS PRN #30 tab PRN Reason: Insomnia FLUoxetine HCL [PROzac] 20 mg PO DAILY #30 cap Continue Insulin Glargine,Hum.rec.anlog [Lantus Solostar Pen] 25 units SQ HS 30 Days #15 ml Insulin Aspart [NovoLOG Flexpen] See Protocol SQ AC-TID #15 ml Discontinued FLUoxetine HCL [PROzac] 20 mg PO DAILY Discharge Medication List FLUoxetine HCL [PROzac] 20 mg PO DAILY #30 cap 04/22/25 [Rx] Insulin Aspart [NovoLOG Flexpen] See Protocol SQ AC-TID #15 ml 04/22/25 [Rx] Insulin Glargine,Hum.rec.anlog [Lantus Solostar Pen] 25 units SQ HS 30 Days #15 ml 04/22/25 [Rx] traZODone HCL [Desyrel] 50 mg PO HS PRN #30 tab 04/22/25 [Rx] Follow up Appointment(s)/Referral(s): [facility] [NON-STAFF] - 1 Week (Contact a primary care office to become established with a provider.) [facility] [NON-STAFF] - 1 Week None,Stated [Primary Care Provider] - 1-2 days Jose Cameron MD [STAFF PHYSICIAN] - 1 Week Activity/Diet/Wound Care/Special Instructions: Diabetic diet, low carbohydrate 1600 kcal/day Activity is restricted till you see your doctor Follow-up with your primary care doctor in 1 week. Please call to make appointment We recommend to monitor her glucose 4 times a day, before each meals and at bedtime. Keep the results in a log book and bring it to your doctor on your appointment date. If your glucose less than 70 or more than 400 then come to the emergency room Discharge/Stand Alone Forms: Area PCPs Discharge Disposition: HOME SELF-CARE
--- NOTE | 2025-04-23 07:40 | P.PN ---
Subjective 45-year-old man with history of diabetes who is brought to have evaluation for elevated blood sugar. When I interviewed the patient, he does appear somewhat delirious and states that I just do not feel well. He is not able to give much additional history. He is able to answer simple direct questions he denies pain, dyspnea. Patient presents frequently to ER with elevated blood sugars due to being homeless and not able to care for self and take medications as prescribed Blood work completed in ED reveals WBC of 8.47, hemoglobin of 14.1 and platelet count of 287, sodium 129, potassium 5.4, BUN/creatinine of 37/1.06, acetone is positive; blood glucose of 671 UA is positive for glucose and ketones - Patient was placed on IV insulin infusion and is admitted for further treatment 04/21 Patient awake alert. Complaining from not feeling well without specification when asking what exactly not feeling well he answers I do not know I asked him how much insulin he takes at home, he answers I do not know, also when I asked him why he was not taking his insulin he states I do not know he just does not feel well I did systemic review which were negative including no chest pain or dyspnea no coughing no specific GI/ symptoms no headache dizziness weakness or numbness. He is lying in bed. 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 No pain there. No other new complaint. Blood pressure 140/80. Last time earlier this morning he was discharged on Lantus 25 units at bedtime and 5 units with meal. He received 25 units last night. Patient was on insulin drip this morning and glucose was 90. Patient was feeling hungry and wants to eat. Insulin drip was stopped. Continue with insulin sliding scale. Discussed with staff given his history of depression we will also consult psych service for consult 04/23 Patient was discharged yesterday after sugar got controlled. However patient was cleared by the licensed social worker for placement as he is almost blind which is a chronic problem. Social work and trying to get him to [facility] this morning. I saw the patient sitting at the bedside smiling enjoying his breakfast stating I feel very good today. Denies any specific complaint We discussed about his sugar management plan and he needs better sugar control led and referral to hazardous materials tanker driver as an outpatient. Patient told me he is going to call PCP to ask for Accu-Chek device to his arm. Patient remains medically stable for discharge. Prognosis remains guarded to Objective - Vital Signs Vital signs: Vital Signs Temp 97.8 F 04/23/25 05:14 Pulse 79 04/23/25 05:14 Resp 17 04/23/25 05:14 BP 121/75 04/23/25 05:14 Pulse Ox 97 04/23/25 05:14 FiO2 Intake & Output 04/22/25 04/23/25 04/23/25 18:59 06:59 18:59 Weight 81.647 kg 82.3 kg Other: Voiding Method Toilet Toilet # Voids 1 2 - Exam GENERAL: The patient is alert and oriented x3, not in any acute distress. Well developed, well nourished. HEENT: Pupils are round and equally reacting to light. EOMI. No scleral icterus. No conjunctival pallor. Normocephalic, atraumatic. No pharyngeal erythema. No thyromegaly. CARDIOVASCULAR: S1 and S2 present. No murmurs, rubs, or gallops. PULMONARY: Chest is clear to auscultation, no wheezing , no crackles. ABDOMEN: Soft, nontender, nondistended, normoactive bowel sounds. No palpable organomegaly. MUSCULOSKELETAL: No joint swelling or deformity. -EXTREMITIES: No cyanosis, clubbing, or pedal edema. Right BKA NEUROLOGICAL: Gross neurological examination did not reveal any focal deficits. SKIN: No rashes. no petechiae. - Labs CBC & Chem 7: 04/21/25 06:36 04/21/25 06:36 Labs: Abnormal Lab Results - Last 24 Hours (Table) 04/22/25 04/22/25 04/22/25 Range/Units 06: 11:44 17:07 POC Glucose (mg/dL) 273 H 318 H (70-110) mg/dL Hemoglobin A1c 12.2 H (<=6.0) % 04/22/25 04/23/25 Range/Units 20:19 06:03 POC Glucose (mg/dL) 197 H 199 H (70-110) mg/dL Hemoglobin A1c (<=6.0) % Assessment and Plan Assessment: 1. Elevated blood glucose/DKA, secondary to nonadherence to therapy. Patient could not verify -Blood glucose above 600 upon arrival to ED; patient was found to be confused and delirious; blood and urine acetones are positive - Patient has been placed on IV insulin infusion; will monitor electrolytes and renal function - IV fluids normal saline at a rate of 150 cc an hour; can be changed to dextrose containing fluid if patient continues to require IV insulin - Continue to monitor renal function electrolytes - Discontinue insulin drip. Continue with Lantus 25 units and insulin sliding scale 2. Hyponatremia; likely related to markedly elevated blood glucose - Patient has been placed on normal saline; monitor electrolytes every 4 hours; make adjustments as needed 3. Acute renal injury/dehydration; continue with fluids as indicated above. Resolved 4. Hyperkalemia; likely associated with DKA; hold off any; monitor electrolytes. Resolved 5. Diabetes mellitus type 1 with long-term insulin use; with hyperglycemia. We will transition to home dose of insulin glargine once DKA is resolved 6. Depression; Prozac 20 mg daily. Consult psych service DVT prophylaxis; SCDs CODE STATUS; full code Patient already been discharged. He is medically stable. Instructed to follow- up As mentioned in the discharge summary from yesterday
[2025-04-23 11:40] LABS: Glucose,Whole Blood 285 mg/dL (70-110)
[2025-04-23 16:21] LABS: Glucose,Whole Blood 274 mg/dL (70-110)
[2025-04-23 20:40] LABS: Glucose,Whole Blood 213 mg/dL (70-110)
[2025-04-24 06:21] LABS: Glucose,Whole Blood 232 mg/dL (70-110)
[2025-04-24 09:54] VITALS: BP 125/87; PULSE 89; RESP 18; TEMP 98.2
[2025-04-24 12:04] LABS: Glucose,Whole Blood 222 mg/dL (70-110)
--- NOTE | 2025-04-24 20:08 | P.PN ---
Subjective 45-year-old man with history of diabetes who is brought to have evaluation for elevated blood sugar. When I interviewed the patient, he does appear somewhat delirious and states that I just do not feel well. He is not able to give much additional history. He is able to answer simple direct questions he denies pain, dyspnea. Patient presents frequently to ER with elevated blood sugars due to being homeless and not able to care for self and take medications as prescribed Blood work completed in ED reveals WBC of 8.47, hemoglobin of 14.1 and platelet count of 287, sodium 129, potassium 5.4, BUN/creatinine of 37/1.06, acetone is positive; blood glucose of 671 UA is positive for glucose and ketones - Patient was placed on IV insulin infusion and is admitted for further treatment 04/21 Patient awake alert. Complaining from not feeling well without specification when asking what exactly not feeling well he answers I do not know I asked him how much insulin he takes at home, he answers I do not know, also when I asked him why he was not taking his insulin he states I do not know he just does not feel well I did systemic review which were negative including no chest pain or dyspnea no coughing no specific GI/ symptoms no headache dizziness weakness or numbness. He is lying in bed. 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 No pain there. No other new complaint. Blood pressure 140/80. Last time earlier this morning he was discharged on Lantus 25 units at bedtime and 5 units with meal. He received 25 units last night. Patient was on insulin drip this morning and glucose was 90. Patient was feeling hungry and wants to eat. Insulin drip was stopped. Continue with insulin sliding scale. Discussed with staff given his history of depression we will also consult psych service for consult 04/23 Patient was discharged yesterday after sugar got controlled. 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 Social work and trying to get him to [facility] this morning. I saw the patient sitting at the bedside smiling enjoying his breakfast stating I feel very good today. Denies any specific complaint We discussed about his sugar management plan and he needs better sugar control led and referral to [facility] as an outpatient. Patient told me he is going to call PCP to ask for Accu-Chek device to his arm. Patient remains medically stable for discharge. Prognosis remains guarded to 04/24 Patient is seen and examined by me at bedside, sister was also at bedside meeting her for the first time Patient looks pleasant sitting up in bed and at the side, he still confirms he is doing well and he still confirms he can go home today , he needed help with his daily care. mattress spring encaser on the case and she is trying to help him with his needs His sister also has questions which were all answered to their satisfaction. she is requesting (a reader for [facility] ) for his Accu-Chek , prescription provided for him for this their request . Patient and sister both confirmed to me that going to leave hospital today and that they do not have any further needs from medical team other than the usual care. No other new physical complaint as he is medically remains stable over the last 48 hours Per staffm, Adult Protective Services came later and talked to the patient, they think that the patient call them himself. Patient remains medically stable for discharge. I stressed to the patient and sister at bedside to call PCP upon discharge and make close follow-up appointment and they are agreeable Objective - Vital Signs Vital signs: Vital Signs Temp 98.2 F 04/24/25 08:00 Pulse 89 04/24/25 08:00 Resp 18 04/24/25 08:00 BP 125/87 04/24/25 08:00 Pulse Ox 99 04/24/25 08:00 FiO2 Intake & Output 04/23/25 04/24/25 04/24/25 18:59 06:59 18:59 Intake Total 200 175 Balance 200 175 Intake: Oral 200 175 Other: Voiding Method Toilet Toilet # Voids 1 1 # Bowel Movements 1 - Exam GENERAL: The patient is alert and oriented x3, not in any acute distress. Well developed, well nourished. HEENT: Pupils are round and equally reacting to light. EOMI. No scleral icterus. No conjunctival pallor. Normocephalic, atraumatic. No pharyngeal erythema. No thyromegaly. CARDIOVASCULAR: S1 and S2 present. No murmurs, rubs, or gallops. PULMONARY: Chest is clear to auscultation, no wheezing , no crackles. ABDOMEN: Soft, nontender, nondistended, normoactive bowel sounds. No palpable organomegaly. MUSCULOSKELETAL: No joint swelling or deformity. -EXTREMITIES: No cyanosis, clubbing, or pedal edema. Right BKA NEUROLOGICAL: Gross neurological examination did not reveal any focal deficits. SKIN: No rashes. no petechiae. - Labs CBC & Chem 7: 04/21/25 06:36 04/21/25 06:36 Labs: Abnormal Lab Results - Last 24 Hours (Table) 04/23/25 04/23/25 04/23/25 Range/Units 11:39 16:21 20:39 POC Glucose (mg/dL) 285 H 274 H 213 H (70-110) mg/dL 04/24/25 Range/Units 06:20 POC Glucose (mg/dL) 232 H (70-110) mg/dL Assessment and Plan Assessment: 1. Elevated blood glucose/DKA, secondary to nonadherence to therapy. Patient could not verify -Blood glucose above 600 upon arrival to ED; patient was found to be confused and delirious; blood and urine acetones are positive - Patient has been placed on IV insulin infusion; will monitor electrolytes and renal function - IV fluids normal saline at a rate of 150 cc an hour; can be changed to dextrose containing fluid if patient continues to require IV insulin - Continue to monitor renal function electrolytes - Discontinue insulin drip. Continue with Lantus 25 units and insulin sliding scale - Patient will be discharged on Lantus 25 units as before and short acting insulin 4 units with meal, I explained to the patient and his sister that he needs continuous glucose monitoring upon discharge 4 times a day and before bedt margarita, he confirms he has glucometer and he request (a reader for [facility] ) for the Accu-Chek which was provided for him. He is insulin needs may fluctuate daily based on his activity and the food he consumed and I explained this to him. -The contact information for the [facility] firer and [facility] provided for him. Also he is encouraged to call his insurance provider if he does not have a PCP to find a PCP and to call to make appointment within 1 week and he agrees 2. Hyponatremia; likely related to markedly elevated blood glucose, 3. Acute renal injury/dehydration; continue with fluids as indicated above. Resolved 4. Hyperkalemia; likely associated with DKA; hold off any; monitor electrolytes. Resolved 5. Diabetes mellitus type 1 with long-term insulin use; with hyperglycemia. We will transition to home dose of insulin glargine once DKA is resolved 6. Depression; Prozac 20 mg daily. Consult psych service evaluated the patient, he is stable from their perspective DVT prophylaxis; SCDs CODE STATUS; full code Patient already been discharged. He is medically stable. Instructed to follow- up As mentioned in the discharge summary from yesterday resolved
== END 2025-04-24 13:27 | disposition home or self-care (01) | DRG 638 ==
LOC: EC 19:57 → 3SCARD 22:07 → 4SSUR 04-21 10:06 → 5NMEDONC 04-21 20:20 → 1SOBS 04-21 20:22
PROVIDERS: ADMIT Hospitalist; ATTEND Hospitalist
DX: E10.10 Type 1 diabetes mellitus with ketoacidosis without coma (principal); E87.1 Hypo-osmolality and hyponatremia; Z59.01 Sheltered homelessness; F32.A Depression, unspecified; N17.9 Acute kidney failure, unspecified; Z89.511 Acquired absence of right leg below knee; Z79.4 Long term (current) use of insulin; E86.0 Dehydration; E87.5 Hyperkalemia; H54.3 Unqualified visual loss, both eyes; Z79.899 Other long term (current) drug therapy; Z87.891 Personal history of nicotine dependence; Z63.5 Disruption of family by separation and divorce; Z96.643 Presence of artificial hip joint, bilateral
CPT/HCPCS: 36415; 80048; 80051; 80053; 80320; 81003; 82009; 82565; 82947; 83036; 83605; 83735; 84100; 84484; 84520; 85025; 93005; 96360; 96361; 99291